=== PATIENT | male | born 1960 | race Caucasian/White ===

== ENCOUNTER 2023-09-23 13:15 | Inpatient (IN) | payer OTHER, SELFPAY ==
[2023-09-23] VITALS (56 sets, daily range): BP systolic 91–143; BP diastolic 52–96; BMI 23.8; BMI 22.1
--- NOTE | 2023-09-23 11:31 | ED.GENMED ---
History of Present Illness
General
Chief Complaint: CVA/TIA Symptoms
Source: patient and ambulance crew
Exam Limitations: none
Time Seen by Provider: 09/23/23 11:29
Nursing documentation reviewed up to this point in time: agreed with
History of Present Illness
History of Present Illness:
63-year-old male with a past medical history of esophageal cancer (currently on chemotherapy which was initiated this past and follows with Dr. Mccullough at [facility]), history of bradycardia (follows with Dr. Franki Farrar
for cardiology) who presents to the emergency room via EMS for evaluation of right weakness and facial droop. Patient reportedly has last normal at 10:30 AM according to his . says that just prior to arrival here in the emergency room she
found him sitting on the couch and coherent and noticed that he had a facial droop on his right side and could not move his right arm. She called EMS to bring him to the hospital. Per EMS he had normal vital signs, normal Accu-Chek. They did note
right facial droop and right arm weakness. Prehospital stroke alert was called. Patient is not on any blood thinners. No known history of brain mets.
Review of Systems
Review of Systems
Unable to obtain full review of systems at this time due to: due to acuity
All Other Systems: Not applicable
Phy Exam
Physical Exam
Physical Exam:
General: Awake, alert, oriented x2; anxious but not in distress
Head: Normocephalic, atraumatic
Eyes: Conjunctiva normal, EOMI, visual chilel intact, pupils equal round reactive to light bilaterally
Throat: Airway intact, handling secretions
Neck: Trachea midline, supple without meningismus
Lungs: Clear to auscultation bilaterally, no wheezing, rales, rhonchi
Heart: Regular rate and rhythm, no murmurs, gallops, or rubs; left chest wall port in place
Abd: Soft, non distended, nontender
Neuro: Patient has right facial droop, cranial nerves otherwise intact; no limb ataxia; he has 4/5 strength right upper extremity proximally and distally compared to 5/5 left upper extremity; strength intact 5/5 bilateral lower extremities; he has
mild dysarthria no aphasia
Extremities: No edema in extremities, equal pulses in all extremities
Scores
NIH Stroke Score
Level of Consciousness: 0 - Alert
LOC Questions: 1-Answers one correctly
LOC Commands: 0-Performs both correctly
Best Horizontal Gaze: 0-Normal
Visual Chilel: 0=Normal, no visual loss
Facial Palsy: 1=Minor paralysis
Motor - Right Arm: 1=Drift < 10 seconds
Motor - Left Arm: 0=No drift 10 seconds
Motor - Right Le-No drift 5 seconds
Motor - Left Le-No drift 5 seconds
Limb Ataxia: 0-Absent
Sensation: 0-Normal
Best Language: 0-No aphasia
Dysarthria: 1-Mild slurring
Extinction and Inattention: 0-No abnormality
Total Score:: 4
Heart Failure Risk
Heart Failure Risk Score: Not Applicable
Heart Score for Chest Pain Patients
STEMI patient?: Not applicable
Withdrawal Assessment of Alcohol
Withdrawal Assessment Completed?: Not applicable
Course
Orders/Labs/Results
Orders:
Orders
09/23/23 11:27
EKG [Electrocardiogram (*1)] Urgent
Reason for Study: TIA/Stroke
09/23/23 11:28
EKG- Treatment ONCE
09/23/23 11:29
Electrocardiogram (*1) Stat
Reason for Study: Other
Other Reason for Exam: neuro symptoms
CT Head W/o Cont STROKE ALERT Urgent
Comment:
Reason For Exam: right facial droop, RUE weakness
CT Head/Neck Ang STROKE ALERT Urgent
Comment:
Reason For Exam: right facial droop, RUE weakness
Bedside Glucose- Treatment ONCE
Cardiac Monitoring- Treatment ONCE
EKG- Treatment ONCE
IV Insert/Care/Rem.- Treatment PRN
Vital Signs- Treatment ONCE
Frequency: q30m
Pulse Ox/cont/shift [RESP] Stat
Quantity: 1
09/23/23 11:35
Troponin I Urgent
09/23/23 11:36
Complete Blood Count/With Diff Urgent
Comprehensive Metabolic Panel Urgent
PTT Urgent
Prothrombin Time Urgent
Aspirin 325 mg PO NOW STA
Clopidogrel Bisulfate [Plavix] 300 mg PO NOW STA
09/23/23 11:47
Tenecteplase [Tnkase] 19 mg Syringe [Syringe Non-Pump] 0 ml IV NOW
Provider explained risk/benefits to patient &/or caregiver?: Yes
09/24/23 08:00
Aspirin Chewable [Low Strength Aspirin] 81 mg PO DAILY
Clopidogrel Bisulfate [Plavix] 75 mg PO DAILY
Abnormal Lab Results
09/23/23 09/23/23
11:35 11:36
RBC 3.58 L 10^6/uL
(4.70-6.10)
Hgb 10.5 L g/dL
(13.0-18.0)
Hct 31.5 L %
(39.0-52.0)
RDW 18.0 H %
(11.5-14.5)
Abs Immat Gran (auto) 0.1 H 10^3/uL
(0-0.05)
Absolute Neuts (auto) 7.4 H 10^3/uL
(1.4-6.5)
Absolute Lymphs (auto) 0.3 L 10^3/uL
(1.2-3.4)
Immature Gran % 0.7 H %
(0-0.5)
Neutrophils % 91.5 H %
(42.2-75.2)
Lymphocytes % 3.9 L %
(20.5-51.1)
PT 15.8 H Sec
(11.4-14.6)
Sodium 122 L mmol/L
(135-145)
Chloride 91 L mmol/L
(98-107)
BUN 21 H mg/dl
(9-20)
Glucose 114 H mg/dl
(70-99)
Calcium 7.9 L mg/dl
(8.4-10.2)
Troponin I 0.111 H* ng/ml
Total Protein 6.2 L g/dl
(6.3-8.2)
Albumin 3.3 L g/dl
(3.5-5.0)
09/23/23 11:36
09/23/23 11:36
Vital Signs
Initial and Last Documented VS:
Initial Vital Signs
Pulse Resp BP Pulse Ox
71 16 104/79 98
09/23/23 11:55 09/23/23 11:55 09/23/23 11:55 09/23/23 11:55
Last Documented Vital Signs
Pulse Resp BP Pulse Ox
64 16 111/57 97
09/23/23 12:02 09/23/23 12:02 09/23/23 12:02 09/23/23 12:08
MDM/Problems Addressed
Differential Diagnosis Includes:
CVA/TIA, complex migraine, mass, seizure
MDM/Problems Addressed:
63-year-old male presents for evaluation of right facial droop and right arm weakness that started this morning. He was last seen normal at 10:30 AM by his . Prehospital stroke alert called. Neurology at bedside during initial assessment.
His NIH stroke scale here is 4. Sent for a stat CT head, CTA head and neck. Usual labs sent off. Will check an EKG. Will monitor very closely reassess after the above.
CT head noncontrast is negative for any acute pathology. Case discussed with patient, , neurology who is at bedside and ultimately decision made to proceed with treatment for TNK with concern for acute CVA. Critical care alert initiated to
facilitate ICU admission. Discussed case with hospitalist.
His initial lab work came back he does have some mild anemia 10.5. His CMP was significant for hyponatremia 122 with normal glucose. His troponin is slightly elevated at 0.111�he denies any chest pain. He had a cardiac catheterization 02/04/[address] Carrera showed clean coronary arteries. Will need to continue to trend. Discussed his hyponatremia with nephrology for consultation will add on urine osmolality and urine sodium. Hospitalist updated.
Chronic conditions affecting care:
Esophageal cancer
*Radiology
Radiology exam reviewed: preliminary read by ED provider and radiology read reviewed
*Pulse Oximetry
Patient hypoxic: no
*EKG
Interpreted by ED Provider?: Yes
Heart Rate: 119
Rate: tachycardiac
Rhythm: junctional
[place]: normal axis
Interval: normal interval
QRS Pattern: normal QRS
Ischemia: no ischemia
*Critical Care Note
Total Time (30-74mins, 75-104mins- exclusive of procedures): 32
comment:
Critical care statement: A total of 32 minutes of critical care time was provided for this patient. This includes management of unstable vital signs, evaluation of the patient at bedside, frequent reassessment, discussion with
consultants/hospitalist, and review of pertinent medical records. This time was separate from time utilized to perform any aforementioned documented procedures
Data Reviewed
Review of Other/Old Records Reveals: Labs and Records
Source: patient, records and spouse
Patient Management
Discussion with other providers: Hospitalist (Discussed with hospitalist) and Cso (Discussed with neurology)
Escalation/DeEscalation of care consider admission/obs:
Admission indicated
ED Attending Note
-
Portions of this chart may have been created with voice recognition software.� Occasional wrong word or��sound alike� substitutions may have occurred due to the inherent limitations of voice recognition software.
Discharge Plan
Departure
Patient Disposition: Admit
Date of Disposition: 09/23/23
Time of Disposition: 11:50
Admit to doctor: Carla
Presentation/result/management discussed w/ accepting MD/DO: Hospitalist
Discharge Problem:
Acute cerebrovascular accident (CVA)
Prescriptions:
No Action
oxycodone 30 mg Tablet, Oral Only
30 mg PO Q4HPRN PRN (Reason: breakthrough pain)
Patient Comments:
09/23/2023: last filled 09/22/23, 30 tabs for 10 days from [place]
ondansetron HCl 4 mg tablet
4 mg PO Q6HPRN PRN (Reason: NAUSEA)
prochlorperazine maleate 10 mg tablet
10 mg PO Q6HPRN PRN (Reason: NAUSEA)
fentanyl 25 mcg/hr patch 72 hour
25 mcg transdermal Q3D
Patient Comments:
09/23/2023: last filled 09/21/23, 10 patches for 30 days from [place]
albuterol sulfate 90 mcg/actuation HFA aerosol inhaler
2 puff INHALATION Q4HPRN PRN (Reason: WHEEZING/SOB)
thyroid (pork) [[place] Thyroid] 30 mg tablet
60 mg PO DAILY@07
Xtampza ER 36 mg cap,sprinkl,ER12hr(DONT CRUSH)
36 mg PO Q8H
Patient Comments:
09/23/2023: last filled 09/20/23, 90 tabs for 30 days from [facility]
Vosevi 400-100-100 mg tablet
1 tab PO DAILY
ferrous sulfate 325 mg (65 mg iron) Tablet
325 mg PO DAILY
bismuth subsalicylate [Pepto-Bismol] 262 mg/15 mL Suspension
524 mg PO QID PRN (Reason: stomach issues)
testosterone enanthate 200 mg/mL oil
100 mg IM Q2W
Fluorouracil Pump
1 dose IV Q2W
Patient Comments:
09/23/2023: 5-FU 2600mg/m2* BSA 1.99= 5174mg IV over 24 hrs every 2 weeks
Interventions
Interventions:
*Risk Screen - Suicide Last Done: 09/23/23 11:55
*General Assessment Last Done: 09/23/23 11:55
*Neglect/Abuse Screening Last Done: 09/23/23 11:55
ED- Fall Risk Assessment Last Done: 09/23/23 12:08
*ED COVID-19 Vaccine History Last Done: 09/23/23 12:11
ED- Pulmonary Assessment Last Done: 09/23/23 12:08
ED- Neurological Assessment Last Done: 09/23/23 11:51
ED- Cardiac Assessment Last Done: 09/23/23 12:08
Discharge Date and Time
Print Language: WELSH
--- NOTE | 2023-09-23 11:32 | CON.NEURO ---
Neuro Assessment/Plan
Assessment
IMPRESSIONS/RECOMMENDATIONS:
Abrupt onset of speech change
Most likely due to acute ischemic stroke involving left MCA
Patient was not a candidate for intra-arterial thrombectomy due to absence of clot for retrieval.
Plan
Recommendations:
� administer IV Tenecteplase per protocol urgently while keeping patient's blood pressure to a goal of systolic less than 185 and diastolic less than
110 mmHg
� place the patient in medical ICU
� goal blood pressure over the next 24 hours would be less than 180/105 mmHg
� check MRI of the brain within 22-32 hours of Tenecteplase without contrast for localization of the stroke
� hold all antiplatelets, OAC meds, DOAC meds, heparinoids for next 24 hours
� check lipid panel
� start atorvastatin 40 mg at bedtime when patient is able to take PO
� check an echocardiogram
� goal blood glucose levels for patient would be less than 180 mg/dL
� Speech, PT, OT evaluations needed
� Physiatry consultation warranted
� DVT prophylaxis with sequential compression devices over next 24 hours, �can be started on Lovenox subcutaneous for DVT prophylaxis
beginning 24 hours after Tenecteplase provision.
� medical educational materials will be provided
Total Critical Care Time= 35 minutes.
The neurological system is affected and the action required by me to prevent further deterioration or potential was control over the item listed first in the Impressions and Recommendations section of this note.
I was present and personally examined the patient. I discussed patient care with other professional health care providers.
Also discussed with family.
We will follow.
Consultation
Order
Date of Consultation: 09/23/23
Requesting Provider: ED Physician
Reason for Consult: Stroke Alert
Subjective/Objective
Subjective Data
Date of Service: September 23, 2023
Patient presented to this hospital's emergency department with acute onset right arm and right facial weakness. The patient was also described as having confusion as per his . Patient did not have prior symptoms. Of importance is that the
patient received his first chemotherapy 2 days ago as a treatment for esophageal cancer. Initiated the use of a fentanyl patch last evening
HR was racing immediately prior to presentation. No other associated symptoms. Symptomatology has continued since onset. No known modifying factors.
Objective Data
Patient Allergies
shellfish derived Allergy (Verified 02/04/22 07:44)
Hives
CVA Assessment
Onset of Stroke Symptoms
Onset of symptoms known: Yes
Date of onset of symptoms: 09/23/23
Time of onset of symptoms: 10:30
Time pt last seen normal is known: Yes
Date last time pt seen normal: 09/23/23
Time last time pt seen normal: 10:00
NIH Stroke Score
Level of Consciousness: 0 - Alert
LOC Questions: 0-Answers both correctly
LOC Commands: 0-Performs both correctly
Best Horizontal Gaze: 0-Normal
Visual Chilel: 0=Normal, no visual loss
Facial Palsy: 1=Minor paralysis (on right)
Motor - Right Arm: 1=Drift < 10 seconds
Motor - Left Arm: 0=No drift 10 seconds
Motor - Right Le-Drift < 5 seconds
Motor - Left Le-No drift 5 seconds
Limb Ataxia: 0-Absent
Sensation: 0-Normal
Best Language: 0-No aphasia
Dysarthria: 1-Mild slurring
Extinction and Inattention: 0-No abnormality
Total Score:: 4
Tenecteplase Contraindications
Inclusion and Exclusion criteria reviewed: Yes
Review of Systems
-
History Source: Patient
All other systems: Reviewed and negative
EENT: Negative Swallowing Difficulty
Respiratory: Trouble Breathing
Cardiac: Negative Chest Pain
Abdomen/GI: Negative Incontinence of Stool
Genitourinary: Negative Incontinence
Musculoskeletal: Negative Back Pain or Neck Pain
Neuro: Negative Dizzy or Headache
Physical Exam
-
General: No Apparent Distress and Appears Stated Age
Eyes: OU Absent Papilledema, Round OU, [place] Conjunctivae and No Ptosis
HEENT: Anicteric and Moist Mucous Membranes
Neck: Full Range of Motion
Respiratory: No Dyspnea
Cardiac: No JVD
GI: Non-distended
Skin: Unremarkable
Extremities: No Clubbing, No Cyanosis and No Edema
Psych: Negative Intact Judgement/Insight
Extended Neurological Exam
Mood & Affect: Negative Affect Unremarkable (Mildly irritable)
Attention Span & Concentration: Awake, Alert, Interactive and Mild Difficulty with 2 Step Request
Memory: Reduced (For specifics)
Tremor: Hand Tremor Absent and Head Tremor Absent
Speech: Quality Unremarkable and Mildly Reduced Output
Cranial Nerve II: Left Eye: Pupillary Reactivity Unremarkable, Pupillary Size Unremarkable and Visual Chilel Intact
Cranial Nerve II: Right Eye: Pupillary Reactivity Unremarkable, Pupillary Size Unremarkable and Visual Chilel Intact
Cranial Nerves III, IV, : Extraocular Movement: Extraocular Movement Full in all Directions
Cranial Nerve VIII: Hearing: Unremarkable Hearing to Normal Conversational Volume
Cranial Nerves IX, X: Palate Movement: Palate Elevation Symmetric
Cranial Nerve XII: Tongue Protusion: Midline
Muscle Strength, Overall: Spontaneously Moves (All extremities)
Muscle Bulk & Tone: Bulk Unremarkable and Tone Unremarkable
Deep Tendon Reflexes: Trace Throughout
Touch Sensation: Unremarkable
Coordination: Esreli-wifj-mafldx Testing Unremarkable
Babinski Sign: Absent Bilaterally
Gait & Station: Unable to Assess
Data Reviewed
-
CT-A: Report Reviewed
CT Head: Report Reviewed and Image Reviewed
MRI Head: Ordered
Labs: Report Reviewed
Lipid Profile: Ordered
Reviewed with: Physician, Patient and Family
Old Records: Summarized
Medications
-
Home Medications
�Medication �Instructions �Recorded
hydrocodone bitartrate 120 mg 120 mg PO Q24H 02/04/22
tablet, crush resist,extend.rel.
24hr ([place] ER)
oxycodone 30 mg tablet,oral ONLY 30 mg PO Q6H PRN pain 02/04/22
(not feeding tubes)
thyroid (pork) 15 mg tablet 15 mg PO DAILY 02/04/22
([place] Thyroid)
Past History
Past History
ED Past Medical History: Arrthythmia (atrial tachycardia), Asthma, Cancer (esophageal 09/2023), Hypothyroidism and Other (Hemochromatosis, Sleep apnea, Hep C)
ED Past Surgical History: Other (laparoscopy 09/2023, port placement 09/2023)
Social History
Tobacco: Non-smoker
Alcohol: Former (age 43)
Drug: None
Personal:
Living: with family
Family History
Family History: Other (reviewed and non-contributory)
[2023-09-23 11:54] LABS: ALT (SGPT) 18 U/L (0-50); AST (SGOT) 37 U/L (17-59); Albumin 3.3 g/dl (3.5-5.0); Alkaline Phosphatase 53 U/L (38-126); Blood Urea Nitrogen 21 mg/dl (9-20); Calcium 7.9 mg/dl (8.4-10.2); Carbon Dioxide 29 mmol/L (22-30); Chloride 91 mmol/L (98-107); Estimated Creatinine Clearance 112 ml/min; Glucose 114 mg/dl (70-99); Potassium 3.8 mmol/L (3.5-5.1); Sodium 122 mmol/L (135-145); Total Bilirubin 0.7 mg/dl (0.2-1.3); Total Protein 6.2 g/dl (6.3-8.2); eGFR > 60.00
[2023-09-23 11:55] LABS: % Basophils 0.2 % (0-2); % Eosinophils 0.4 % (0-6); % Immature Granulocytes 0.7 % (0-0.5); % Lymphocytes 3.9 % (20.5-51.1); % Monocytes 3.3 % (1.7-9.3); % Neutrophils 91.5 % (42.2-75.2); Absolute Immature Granulocytes 0.1 10^3/uL (0-0.05); Absolute Lymphocytes 0.3 10^3/uL (1.2-3.4); Absolute Monocytes 0.3 10^3/uL (0.1-0.6); Absolute Neutrophils 7.4 10^3/uL (1.4-6.5); Hematocrit 31.5 % (39.0-52.0); Hemoglobin 10.5 g/dL (13.0-18.0); Mean Corp Hgb Conc. 33.3 g/dL (33.0-37.0); Mean Corpuscular Hgb 29.3 pg (27.0-31.0); Mean Platelet Volume 10.1 fL (7.4-10.4); Nucleated Red Blood Cells % 0 % (-); Platelet Count 171 10^3/uL (130-400); Red Blood Cell Count 3.58 10^6/uL (4.70-6.10); White Blood Cell Count 8.1 10^3/uL (4.8-10.8)
[2023-09-23 12:00] LABS: INR 1.28; PT 15.8 Sec (11.4-14.6)
[2023-09-23 12:01] LABS: APTT 31.8 Sec (23.4-35.0)
[2023-09-23] MEDS: TNKASE 3.79999999999999982 MG IV (12:01)
[2023-09-23 12:12] LABS: Troponin I 0.111 ng/ml
--- NOTE | 2023-09-23 12:46 | HPS.HSE ---
Addendum entered and electronically signed by Xochilt Olivia MD 09/23/23 18:07:
I saw and examined the patient.
The SPEECH LANGUAGE PATHOLOGIST TRAVEL or PA's note was reviewed and I agree with the note.
Comment:
63M Hypothyroidism, Atrial Tachy, [place], Esophageal/gastric Ca recently started on Chemo two days ago, Hep C Chronic Pain opiate Dependent p/w rt facial droop and rt arm weakness occurred acutely in the morning noted by 10:30 AM while patient
was sitting on couch, awake alert and coherent during the event.� Prior change patient was in his usual state of health earlier in the morning.� Denies nausea vomiting diarrhea chest pain shortness of breath VSS CT head CTA Head/neck noted no acute
intracranial abn�s filling defect focal stenosis or aneurysm.� �Patient was evaluated and given TPN as per Neuro.� ED evaluation was also notable for hyponatremia 122 and troponin elevation 0.111
Physical Exam
General: No pallor, cyanosis, or jaundice.
HEENT: Throat clear. PERRLA Normocephalic atraumatic. Right Facial Droop
NECK: Supple. No JVD Carotid Bruits
RESPIRATORY: Lungs clear to auscultation. No crackles wheezes stridor
CVS: S1, S2 Irregular Rhythm
ABDOMEN: Soft, non-tender. No distension. BS+/normal.
EXTREMITIES: No peripheral or cyanosis, +1 pitting edema lower ext�s
STATISTICAL FINANCIAL ANALYST: AOx3 Right facial droop
#CVA s/p TPN
#Troponin Elevation Arrythmia
#Hyponatremia
#Chronic Pain Opiate Dependent
ICU admit
Neuro [facility] Nephro Cardiology eval
NIH neurochecks
ST/PT/OT eval
Follow up MRI
Goal BP <180/105 24 hrs after thrombolytic therapy
Fluid restriction
Trend troponin to peak ECHO pending
Cont home opiate pain regimen
Total Critical Care Time__40___ minutes. I was immediately available to the patient and staff. I personally examined, reviewed labs, diagnostic images/reports, interpretations, treatment plans, discussed patient care with other providers,
patient, and family, entered orders as appropriate and documented the medical record.
Original Note:
Family Physician
-
Family Physician:
Chief Complaint
-
Right Facial Droop
History of Present Illness
Patient is a 63 y/o male past medical history of hypothyroidism, atrial tachycardia, bradycardia, esophageal/gastric cancer, and hepatitis C who presents with right facial droop and right arm weakness. He awoke this morning in his usual state of
health. Around 10:30 this morning he noted new right facial droop and right sided weakness. notes he could not move his right arm, and the right side of his face was dropping. He denies any prior episodes of stroke. He denies history of high
blood pressure, high cholesterol or diabetes. He did received his first chemotherapy treatment on .
Medical History
Past Medical History
Past Medical History: Reports Other
Additional Past Medical History:
Esophageal/Gastric Cancer
Hepatitis C
Hypothyroidism
Paroxysmal Atrial Tachycardia / Bradycardia
Chronic Pain with Opioid Dependence
Past Surgical History: Reports Other
Additional Past Surgical History:
Right Rotator Cuff
Social History
Tobacco: Former Smoker
Alcohol: Former
Drug: None
Family History
Family History: Not pertinent
Allergies / Home Medications
Allergies reflects when Allergies were last updated in [facility].
Home Medications with original date entered in [facility]
Allergy/Medication List:
Allergies
Allergy/AdvReac Type Severity Reaction Status Date / Time
shellfish derived Allergy Hives Verified 02/04/22 07:44
Home Medications
oxycodone 30 mg tablet,oral ONLY (not feeding tubes) 30 mg PO Q4HPRN PRN breakthrough pain 02/04/22
Fluorouracil Pump 1 dose IV Q2W 09/23/23
albuterol sulfate 90 mcg/actuation aerosol inhaler 2 puff inhalation Q4HPRN PRN WHEEZING/SOB 09/23/23
bismuth subsalicylate 262 mg/15 mL oral suspension (Pepto-Bismol) 524 mg PO QID PRN stomach issues 09/23/23
fentanyl 25 mcg/hr transdermal patch 25 mcg transdermal Q3D Pain 09/23/23
ferrous sulfate 325 mg (65 mg iron) tablet 325 mg PO DAILY 09/23/23
ondansetron HCl 4 mg tablet 4 mg PO Q6HPRN PRN NAUSEA 09/23/23
oxycodone myristate 36 mg capsule sprinkle extended release 12hr(DON'T CRUSH) (Xtampza ER) 36 mg PO Q8H Pain 09/23/23
prochlorperazine maleate 10 mg tablet 10 mg PO Q6HPRN PRN NAUSEA 09/23/23
sofosbuvir 400 mg-velpatasvir 100 mg-voxilaprevir 100 mg tablet (Vosevi) 1 tab PO DAILY HEPATITIS C 09/23/23
testosterone enanthate 200 mg/mL intramuscular oil 100 mg IM Q2W 09/23/23
thyroid (pork) 30 mg tablet ([place] Thyroid) 60 mg PO DAILY@07 Thyroid 09/23/23
Review of Systems
-
A 12 point ROS was completed and negative except as noted: Yes
Constitutional: Denies Fever or Chills
Respiratory: Denies Cough or Trouble Breathing
Cardiac: Reports Palpitations (Patient report sensation of raising heart prior to onset of neurologic symptoms); Denies Chest Pain
Physical Exam
Vital Signs
Vital Signs
Pulse Resp BP Pulse Ox
74 18 112/82 97
09/23/23 12:32 09/23/23 12:32 09/23/23 12:32 09/23/23 12:15
Physical Exam
General: Comfortable and Conversant
HEENT: Moist mucous membranes and Atraumatic
Respiratory: Clear and Non Labored Respirations
Cardiac: S1/S2 and Irregular Rhythm (Periods bradycardia and tachycardia)
GI: Soft, Non Tender and Non Distended
Musculoskeletal: No Clubbing, No Cyanosis and Other (+2 pitting edema LLE; +1 pitting edema RLE)
Skin: Warm and Dry
Neuro: Awake, Alert and Facial Droop (Right)
Psych: Calm
Laboratory Results
-
09/23/23 11:36
09/23/23 11:36
Laboratory Results
PT 15.8 Sec (11.4-14.6) H 09/23/23 11:36
INR 1.28 09/23/23 11:36
APTT 31.8 Sec (23.4-35.0) 09/23/23 11:36
Total Bilirubin 0.7 mg/dl (0.2-1.3) 09/23/23 11:36
AST 37 U/L (17-59) 09/23/23 11:36
ALT 18 U/L (0-50) 09/23/23 11:36
Alkaline Phosphatase 53 U/L (38-126) 09/23/23 11:36
Troponin I 0.111 ng/ml H* 09/23/23 11:35
Data Reviewed
-
CT Scan: Report Reviewed by me
Lab Data: Labs Reviewed by me
Impression/Plan
-
Abrupt Onset of Right Facial Droop and Right Arm Weakness concern for Acute Stroke
-Patient received tenecteplase in ED therefore patient will require close monitoring in the ICU
-Monitor Neuro-checks
-Hold antiplatelets for 24 hours post TNK
-Check Brain MRI 24H post TNK
Elevated Troponin
-Consult Cardiology
-Continue to trend troponin
Hyponatremia
-Consult Nephrology
-Continue fluid restriction
-Check urine sodium, urine osmo, and BNP
Esophageal/Gastric Cancer
-Received first chemotherapy on September 20
-Monitor CBC closely
Paroxysmal Atrial Tachycardia / Bradycardia
-Per outpatient records patient declined pacemaker in the past
Hepatitis C
-Continue Vosevi
Hypothyroidism
-Continue thyroid replacement
-Check TSH
Chronic Pain with Opioid Dependence
-Continue Fentanyl patch, Xtampza ER and oxycodone prn
DVT proph: SCDs
Code Status: Full Code
[2023-09-23 13:51] LABS: TSH Reflex To Free T4 2.95 uIU/ml (0.47-4.68)
[2023-09-23 15:07] LABS: NT-proBNP 711 pg/ml
--- NOTE | 2023-09-23 15:56 | CON.INTV ---
Consultation
Consultation Request
Date/Time Consultation Requested: 09/23/2023
Date/Time Consultation Performed: 09/23/2023
Requesting Provider: Pat WEBBER
Performing Provider: Dr. Davis Caba
Reason for Consultation: Acute CVA status post thrombolytics
Medical History
-
History of Present Illness:
63-year-old male with past medical history significant for hypothyroidism, atrial tachycardia, bradycardia, esophageal/gastric cancer, hepatitis C who presents with right facial droop and right arm weakness. Symptoms woke him up this morning from
his usual state of health. Symptoms were noted around 10:30 AM. Patient did receive chemotherapy on for his cancer.
Patient was evaluated by neurology and he was deemed candidate for thrombolysis, received tenecteplase and was transferred to the critical care unit per protocol.
Denies any nausea, vomiting or blurry vision.
Denies any abdominal pain or back pain.
Past Medical History
Past Medical History: Other (See assessment and plan section)
Social History
Tobacco: Former Smoker
Alcohol: Former
Drug: None
Family History
Family History: Reviewed & Not Pertinent
Allergies / Home Medications
Allergies
Allergy/AdvReac Type Severity Reaction Status Date / Time
shellfish derived Allergy Hives Verified 02/04/22 07:44
Home Medications
�Medication �Instructions �Recorded �Confirmed �Last Taken �Type
oxycodone 30 mg tablet,oral ONLY 30 mg PO Q4HPRN PRN breakthrough 02/04/22 09/23/23 02/04/22 06:00 History
(not feeding tubes) pain
Fluorouracil Pump 1 dose IV Q2W Autoimmune Disorder 09/23/23 09/23/23 Unknown History
albuterol sulfate 90 mcg/actuation 2 puff inhalation Q4HPRN PRN 09/23/23 09/23/23 Unknown History
aerosol inhaler WHEEZING/SOB
bismuth subsalicylate 262 mg/15 mL 524 mg PO QID PRN stomach issues 09/23/23 09/23/23 Unknown History
oral suspension (Pepto-Bismol)
fentanyl 25 mcg/hr transdermal 25 mcg transdermal Q3D Pain 09/23/23 09/23/23 09/22/23 18:00 History
patch
ferrous sulfate 325 mg (65 mg 325 mg PO DAILY Supplement 09/23/23 09/23/23 Unknown History
iron) tablet
ondansetron HCl 4 mg tablet 4 mg PO Q6HPRN PRN NAUSEA 09/23/23 09/23/23 Unknown History
oxycodone myristate 36 mg capsule 36 mg PO Q8H Pain 09/23/23 09/23/23 Unknown History
sprinkle extended release
12hr(DON'T CRUSH) (Xtampza ER)
prochlorperazine maleate 10 mg 10 mg PO Q6HPRN PRN NAUSEA 09/23/23 09/23/23 Unknown History
tablet
sofosbuvir 400 mg-velpatasvir 100 1 tab PO DAILY HEPATITIS C 09/23/23 09/23/23 Unknown History
mg-voxilaprevir 100 mg tablet
(Vosevi)
testosterone enanthate 200 mg/mL 100 mg IM Q2W Hormonal Agent 09/23/23 09/23/23 Unknown History
intramuscular oil
thyroid (pork) 30 mg tablet 60 mg PO DAILY@07 Thyroid 09/23/23 09/23/23 Unknown History
([place] Thyroid)
Review of Systems
-
History Source: Patient
All other systems: Negative unless noted
Vitals / Labs / Diagnostic Testing
Vital Signs
Pulse Resp BP Pulse Ox
56 16 97/70 97
09/23/23 13:32 09/23/23 13:32 09/23/23 13:17 09/23/23 12:15
Lab Data
09/23/23 11:36
09/23/23 11:36
Laboratory Results
09/23/23
11:36
PT 15.8 H
INR 1.28
APTT 31.8
Diagnostic Testing:
Physical Exam
-
HEENT: Normocephalic
Cardiovascular: S1/S2
Respiratory: Clear and Non-Labored Respirations
GI: Non Distended
Neurology: Awake, Alert, AO x 3, Other (Speech is clear. Somewhat forgetful.) and Other (No motor deficit. Improved.)
Skin: Warm
General: Comfortable
Assessment
-
Abrupt onset of right facial droop and right arm weakness concern for acute ischemic CVA left MCA territory
CT angiogram of the neck:[place] is patent. No filling defect, focal stenosis or aneurysm.
Less than 50% stenosis of the ICA bilaterally.
Patent vertebral arteries.
Mild to moderate degenerative disk and joint disease in the cervical spine.
Severe chronic lung disease in the lung apices. Possible pulmonary nodules.
CT head negative, reviewed
-
Status post tenecteplase 09/23/2023
Acute on chronic hyponatremia
Mildly positive troponin
Conditions present prior admission:
Esophageal/gastric cancer first chemotherapy September 21, 2023
Paroxysmal atrial fibrillation/bradycardia-patient declined pacemaker in the past
Hepatitis C
Hypothyroidism
Chronic pain on opiates
Assessment and plan:
Continue with frequent neurological checks
Monitor for bleeding
ICU monitoring for 24 hours
Blood pressure control-treat only if blood pressure above 180/105
Eventual MRI
Holding antiplatelet for the next 24 hours
Statins
Eventual echocardiogram
Eventual speech evaluation and physical therapy evaluation
Mildly positive troponin-denies chest pain
EKG with accelerated junctional rhythm with retrograde conduction. No ST-T wave abnormalities.
Patient does have a cardiac catheterization from 01/2022 that showed normal coronaries. Report reviewed
Cardiology has been consulted
Echocardiogram pending
-
Sinus tachycardia: Asymptomatic
Hemodynamically stable
Patient states that he usually is bradycardic.
-
Abnormal CT chest: Biapical scarring. Can be addressed in the outpatient setting. If patient agreeable.
-
DVT prophylaxis with SCDs
-
Will follow
--- NOTE | 2023-09-23 16:12 | PTOTSP ---
ST Screening
Pt admitted for acute onset of RUE weakness and facial droop. Pt with suspected CVA s/p TNK administration. Pt also with known hx of recent dx of esophageal carcinoma (started chemo the day prior to admission). Given the information listed above, pt
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 Please place consult. Thank you!
--- NOTE | 2023-09-23 16:42 | W.PN.UPDATE ---
Update Note
Progress Note Update
billing purposes
[2023-09-23] MEDS: SODIUM CHLORIDE 3% 250 IV (16:45)
[2023-09-23 17:30] LABS: Osmolality Urine 443 mOsm/kg (300-900)
[2023-09-23 17:44] LABS: Urine Sodium 25 mmol/L (30-90)
--- NOTE | 2023-09-23 18:35 | PTCARENOTE ---
Pt retrieved from ED via stretcher. Transferred over to unit bed by nursing. Pt confused. Unable to answer questions. Unable to provide home address. Oriented to self and hospital. Disoriented to current year. Pt unable to state age or month of
birthday. NIHSS 3 for LOC question, mild (R) sided facial palsy, and mild dysarthria. No arm or leg deficit observed in NIHSS assessment. Pt with chronic pain. Reporting 3/10 back pain. Pre-hospital Fentanyl patch found on (R) torso. Pt's
states it was placed last night. HR observed 50s - 120s on desk monitor. Irregular. +2 pitting LLE and +1 pitting RLE edema. Pedal pulses palpable. SaO2 96% on room air. Coarse crackles B/L bases. Diagnosed sleep apnea; pt does not use CPAP. Pt
with esophageal and gastric cancer. States he is eating no carbohydrates and eats scrambled eggs as it is easier to eat with gastric tumor. States irregular bowel movements and uses stool softener. Voided 400ml yellow urine, sample sent per order.
(L) chest wall sub q port placed Monday. 3% Sodium Chloride infusing @ 20ml/hr. Pt and state 1st dose of chemo was over 24 hours, hung from to Monday.
[2023-09-23 19:20] LABS: Sodium 122 mmol/L (135-145)
--- NOTE | 2023-09-23 20:00 | PTCARENOTE ---
Received pt sitting up in chair. Spouse at bedside. AAOx3 - confused/forgetful at times. NIH = 2 for slight R facial droop and mildly slurred speech. HR in the 120s-130s. + 2 LLE + 1 RLE edema. Lungs clear - decreased on RA. + BS 3 Lap sites noted
- CDI approximated w/ surgical glue. Some bleeding noted at R arm IV site - unchanged from previous shift. LCW SQ port in place - not accessed. SCDs on. 3% NS infusing. Pre-hospital fentanyl patch to R abd. Awaiting pharmacy verification to change.
Pt performed own mouth care.
[2023-09-23 20:08] LABS: HDL Cholesterol 62 mg/dl; LDL Cholesterol, Calculated 74 mg/dl; Total Cholesterol 151 mg/dl (50-199); Triglyceride 75 mg/dl (10-149); Very Low Density Lipoprotein 15 mg/dl (0-30)
[2023-09-23] MEDS: OXYCONTIN (CONTROLLED RELEASE) PO (22:05)
[2023-09-23] MEDS: DURAGESIC 25 MCG/HR PATCH 1 PATCH TRANSDERM (22:12)
[2023-09-23] MEDS: LIPITOR 40 MG PO (22:28)
[2023-09-23 22:44] LABS: Sodium 121 mmol/L (135-145)
[2023-09-24] VITALS (26 sets, daily range): BP systolic 94–137; BP diastolic 56–99; BMI 22.1
--- NOTE | 2023-09-24 00:27 | PTCARENOTE ---
Pt's BPs remain soft. Pt w/ sleep apnea - pox drops to the low 80s briefly. Remains confused/forgetful at times.
[2023-09-24 01:12] LABS: Sodium 124 mmol/L (135-145)
[2023-09-24 01:29] LABS: Troponin I 0.215 ng/ml
[2023-09-24] MEDS: ROXICODONE 30 MG PO ×3 (04:10→17:56)
[2023-09-24 04:27] LABS: Hematocrit 28.6 % (39.0-52.0); Hemoglobin 9.8 g/dL (13.0-18.0); Mean Corp Hgb Conc. 34.3 g/dL (33.0-37.0); Mean Corpuscular Hgb 29.3 pg (27.0-31.0); Mean Corpuscular Volume 85.6 fL (80.0-94.0); Platelet Count 166 10^3/uL (130-400); Red Blood Cell Count 3.34 10^6/uL (4.70-6.10); Red Cell Dist. Width 17.9 % (11.5-14.5); White Blood Cell Count 6.6 10^3/uL (4.8-10.8)
[2023-09-24 04:39] LABS: APTT 30.9 Sec (23.4-35.0)
[2023-09-24 06:03] LABS: Blood Urea Nitrogen 22 mg/dl (9-20); Carbon Dioxide 25 mmol/L (22-30); Estimated Creatinine Clearance > 125 ml/min; Glucose 97 mg/dl (70-99); Total Cholesterol 143 mg/dl (50-199); eGFR > 60.00
[2023-09-24 06:14] LABS: Chloride 92 mmol/L (98-107); HDL Cholesterol 54 mg/dl; LDL Cholesterol, Calculated 71 mg/dl; Sodium 124 mmol/L (135-145); Triglyceride 92 mg/dl (10-149); Very Low Density Lipoprotein 18 mg/dl (0-30)
[2023-09-24] MEDS: ARMOUR THYROID 60 MG PO (06:22)
--- NOTE | 2023-09-24 06:36 | W.PN.HOSP.TC ---
Today's Communication/Plan
-
Neuro checks, NIH
MRI
Hyponatremia treatment as per Nephro
ST/PT/OT
Pending ECHO, VSE tomorrow
Assessment / Plan
Assessment / Plan
Physical Exam
General: No pallor, cyanosis, or jaundice.
HEENT: Throat clear. PERRLA Normocephalic atraumatic, face symmetric no facial droop noted.
NECK: Supple. No JVD Carotid Bruits
RESPIRATORY: Lungs clear to auscultation. No crackles wheezes stridor
CVS: S1, S2 Irregular Rhythm
ABDOMEN: Soft, non-tender. No distension. BS+/normal.
EXTREMITIES: No peripheral or cyanosis, +1 pitting edema lower ext�s
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
63M Hypothyroidism, Atrial Tachy, [place], Esophageal/gastric Ca recently started on Chemo two days ago, Hep C Chronic Pain opiate Dependent p/w rt facial droop and rt arm weakness occurred acutely in the morning noted by 10:30 AM while patient
was sitting on couch, awake alert and coherent during the event.� Prior change patient was in his usual state of health earlier in the morning.� Denies nausea vomiting diarrhea chest pain shortness of breath VSS CT head CTA Head/neck noted no acute
intracranial abn�s filling defect focal stenosis or aneurysm.� �Patient was evaluated and given TPN as per Neuro.� ED evaluation was also notable for hyponatremia 122 and troponin elevation 0.111
Acute CVA
-received TNK 09/22 w/ subsequent resolution of symptoms
-Monitor Neuro-checks
-Hold antiplatelets for 24 hours post TNK
-Neuro eval appreciated cont statin, 21 days dual antiplatelet ASA plavix to start tomorrow 09/24
-MRI 24 hrs post TNK appreciated multiple small acute ischemic infarcts throughout brain, 1.2 cm acute infarct left thalamus, consistent with Acute Embolic Disease
-Cardio consult appreciated consideration oral anticoagulation complicated by hx of GI bleed
-Plc Programmer eval appreciated
-Pending ECHO
-speech eval appreciated soft bite size solids w/ thin liquids, pending VSE
-PT/OT eval pending
Abnormal CT chest/CXR: Biapical scarring. Can be addressed in the outpatient setting as per pulm/java project manager. If patient agreeable.
Former smoker
Elevated Troponin
likely non-ischemic related 2/2 stroke
trended to peak 0.440 since trended down, chest pain free
Cardiology Consult Appreciated
Hyponatremia
Nephro Consult appreciated
-Continue fluid restriction
-3% NS, lasix prn as per nephro
-avoid overcorrection
Esophageal/Gastric Cancer
Anemia
-Received first chemotherapy on September 20
-H&H stable
Paroxysmal Atrial Tachycardia / Bradycardia
-declined pacemaker in the past
-consideration low dose BB as per cardio
Hepatitis C
-Continue Vosevi
Hypothyroidism
-Continue thyroid replacement
-TSH wnl
Chronic Pain with Opioid Dependence
-Continue Fentanyl patch, Xtampza ER and oxycodone prn
DVT proph: SCDs
Code Status: Full Code
Total Critical Care Time__40___ minutes. I was immediately available to the patient and staff. I personally examined, reviewed labs, diagnostic images/reports, interpretations, treatment plans, discussed patient care with other providers and
family or caregivers (if patient is unable to make decisions), entered orders as appropriate and documented the medical record.
Anticipated Discharge: 24 - 48 hours
Subjective/Interval History
-
Date of Service: September 24, 2023
Seen and examined at bedside in no acute distress sitting up comfortably in bed. Stroke symptoms appear completely resolved. No facial droop. RUE strength 5/5
Objective Data
-
Labs:
Laboratory Results
09/23/23 09/23/23 09/24/23
18:16 22:28 00:55
WBC
Hgb
Hct
Plt Count
APTT
Sodium 122 L 121 L 124 L
Potassium
Chloride
Carbon Dioxide
BUN
Creatinine
Glucose
Calcium
09/24/23 09/24/23 09/24/23
04:18 04:18 08:00
WBC 6.6
Hgb 9.8 L
Hct 28.6 L
Plt Count 166
APTT 30.9
Sodium 124 L Cancelled Pending
Potassium 4.0
Chloride 92 L
Carbon Dioxide 25
BUN 22 H
Creatinine 0.6 L
Glucose 97
Calcium 8.0 L
Vital Signs:
Vital Signs
Temp Pulse Resp BP Pulse Ox
98.0 F 68 14 99/65 99
09/24/23 03:39 09/24/23 06:30 09/24/23 06:30 09/24/23 06:01 09/24/23 06:30
I&O
09/22/23 09/23/23 09/24/23
06:59 06:59 06:59
Intake Total 200 / 200
Output Total 500 / 500
Balance -300 / -300
[2023-09-24] MEDS: SODIUM CHLORIDE 3% 250 IV ×2 (07:50→19:14)
[2023-09-24] MEDS: FEOSOL 325 MG PO (07:52)
[2023-09-24] MEDS: OXYCONTIN (CONTROLLED RELEASE) 40 MG PO ×2 (07:52→21:56)
--- NOTE | 2023-09-24 09:05 | W.PN.NEURO.1 ---
Addendum entered and electronically signed by Antonio Hernandez MD 09/24/23 16:21:
MRI of brain report: 'There are multiple small acute ischemic infarcts diffusely distributed throughout the brain suggesting acute embolic disease. The largest infarct is located in the medial aspect of the left thalamus measuring 1.2 x 1.0 cm in
size. There is a 4 mm subcortical white matter infarct in the left frontal lobe centrum semiovale bilaterally, a 3 mm acute ischemic infarct in the posterior left parietal lobe, a 3.9 mm acute ischemic infarct in the lateral left temporal lobe,
multiple small linear shaped acute ischemic infarcts in the medial right temporal lobe, a 2.3 mm acute ischemic infarct in the head of the right caudate nucleus, and a 3 mm acute ischemic infarct in the posterior right parietal lobe. These infarcts
demonstrate restricted diffusion and containing mild low T1 and high T2/FLAIR signal intensity cytotoxic edema.'
Original Note:
Today's Communication / Plan
-
check MRI of the brain within 22-32 hours of Tenecteplase without contrast for localization of the stroke
would start ASA 81 mg daily, start clopidogrel 75 mg daily for 21 doses, then discontinue
start atorvastatin 40 mg at bedtime when patient is able to take PO
Neuro Assessment/Plan
Assessment
IMPRESSIONS/RECOMMENDATIONS:
Abrupt onset of speech change
Most likely due to acute ischemic stroke involving left MCA; DDX includes TIA, abnormal response to hyponatremia
Patient received Tenecteplase
Plan
Recommendations:
check MRI of the brain within 22-32 hours of Tenecteplase without contrast for localization of the stroke
would start ASA 81 mg daily, start clopidogrel 75 mg daily for 21 doses, then discontinue
start atorvastatin 40 mg at bedtime when patient is able to take PO
check an echocardiogram
goal blood glucose levels for patient would be less than 180 mg/dL
DVT prophylaxis
medical educational materials will be provided
We will follow.
Subjective/Objective
Subjective Data
Date of Service: September 24, 2023
Reports pain in body.
No weakness. No confusion.
Objective Data
Vital Signs
Temp Pulse Resp BP Pulse Ox
36.8 C 66 13 108/76 99
09/24/23 07:27 09/24/23 08:30 09/24/23 08:30 09/24/23 08:00 09/24/23 08:00
Lab Results
09/24/23 04:18
PT 15.8 Sec (11.4-14.6) H 09/23/23 11:36
INR 1.28 09/23/23 11:36
APTT 30.9 Sec (23.4-35.0) 09/24/23 04:18
Sodium 124 mmol/L (135-145) L 09/24/23 04:18
Sodium Cancelled 09/24/23 04:18
Potassium 4.0 mmol/L (3.5-5.1) 09/24/23 04:18
BUN 22 mg/dl (9-20) H 09/24/23 04:18
Glucose 97 mg/dl (70-99) 09/24/23 04:18
Calcium 8.0 mg/dl (8.4-10.2) L 09/24/23 04:18
Rvz-G-Rptrvagetgh Pept 711 pg/ml 09/23/23 11:35
LDL Cholesterol, Calc 71 mg/dl 09/24/23 04:18
Patient Allergies
shellfish derived Allergy (Verified 02/04/22 07:44)
Hives
Review of Systems
-
History Source: Patient
All other systems: Reviewed and negative
EENT: Swallowing Difficulty
Respiratory: Trouble Breathing
Cardiac: Negative Chest Pain
Abdomen/GI: Abdominal Pain; Negative Incontinence of Stool
Genitourinary: Negative Incontinence
Musculoskeletal: Back Pain and Neck Pain
Neuro: Negative Dizzy or Headache
Physical Exam
-
General: No Apparent Distress and Appears Stated Age
Eyes: Round OU, [place] Conjunctivae and No Ptosis
HEENT: Anicteric and Moist Mucous Membranes
Neck: Full Range of Motion
Respiratory: No Dyspnea
Cardiac: No JVD
GI: Non-distended
Skin: Unremarkable
Extremities: No Clubbing, No Cyanosis and No Edema
Psych: Negative Intact Judgement/Insight
Extended Neurological Exam
Mood & Affect: Negative Affect Unremarkable (Mildly irritable)
Attention Span & Concentration: Awake, Alert and Interactive
Memory: Unremarkable
Tremor: Hand Tremor Absent and Head Tremor Absent
Speech: Quality Unremarkable and Quantity Unremarkable
Cranial Nerve II: Left Eye: Pupillary Size Unremarkable and Visual [place] Grossly Intact
Cranial Nerve II: Right Eye: Pupillary Size Unremarkable and Visual [place] Grossly Intact
Cranial Nerves III, IV, : Extraocular Movement: Grossly Intact
Cranial Nerve VII: Facial Symmetry: Normal Facial Symmetry
Cranial Nerve VIII: Hearing: Unremarkable Hearing to Normal Conversational Volume
Cranial Nerve XI: Shoulder Shrug: Unremarkable
Muscle Strength, Overall: Full Throughout
Muscle Bulk & Tone: Bulk Unremarkable and Tone Unremarkable
Pronator Drift: No Drift in Upper Extremities
Touch Sensation: Unremarkable
Coordination: [place]-vvgc-wggnmv Testing Unremarkable
Gait & Station: Up from Seated Without Problem
Data Reviewed
-
CT-A: Report Reviewed
CT Head: Report Reviewed
MRI Head: Pending
Labs: Report Reviewed
Lipid Profile: Report Reviewed
Reviewed with: Physician and Patient
Old Records: Summarized
Past History
Past History
ED Past Medical History: Arrthythmia (atrial tachycardia), Asthma, Cancer (esophageal 09/2023), Hypothyroidism and Other (Hemochromatosis, Sleep apnea, Hep C)
ED Past Surgical History: Other (laparoscopy 09/2023, port placement 09/2023)
Social History
Tobacco: Non-smoker
Alcohol: Former (age 43)
Drug: None
Personal:
Living: with family
Family History
Family History: Other (reviewed and non-contributory)
Medications
-
Medications:
Generic Name Dose Route Start Last Admin
Trade Name Freq PRN Reason Stop Dose Admin
Acetaminophen 650 mg 09/23/23 12:31
Acetaminophen 325 Mg Tablet PO 10/21/23 12:30
Q4HPRN PRN
CARR, mild pain, or temp >100.4F
Albuterol 2 puff 09/23/23 16:12
Albuterol Hfa [90 Mcg/Dose] Inhaler INH
R Q4HPRN PRN
WHEEZING/SOB
Protocol
Atorvastatin Calcium 40 mg 09/23/23 18:00 09/23/23 22:28
Atorvastatin (Lipitor) 40 Mg Tablet PO 10/21/23 17:59 40 mg
QPM [place] Administration
Fentanyl 1 patch 09/23/23 21:00 09/23/23 22:12
Fentanyl 25 Mcg/Hr Patch TRANSDERM 10/07/23 20:59 1 patch
Q3D [place] Administration
Ferrous Sulfate 325 mg 09/24/23 08:00 09/24/23 07:52
Ferrous Sulfate 325 Mg Tablet PO 10/22/23 07:59 325 mg
DAILY [place] Administration
Sodium Chloride 250 mls @ 30 mls/hr 09/24/23 06:16 09/24/23 07:50
Sodium Chloride 3% IV 09/24/23 14:35 250 mls
ONCE ONE Administration
Non-Formulary Medication 1 tablet 09/24/23 08:00
Zjqgnhkcwo-Fhoujakj-Tddiguyena [Vosevi] PO 10/22/23 07:59
DAILY [place]
Ondansetron HCl 4 mg 09/23/23 16:12
Ondansetron 4 Mg Tablet PO 10/21/23 16:11
Q6HPRN PRN
NAUSEA
Oxycodone HCl 30 mg 09/23/23 20:09 09/24/23 04:10
Oxycodone 15 Mg Regular Release Tablet PO 10/07/23 20:08 30 mg
Q4HPRN PRN Administration
breakthrough pain
Oxycodone HCl 40 mg 09/23/23 22:00 09/24/23 07:52
Oxycontin 40 Mg Controlled Release Tablet PO 10/07/23 21:59 40 mg
TID [place] Administration
Patch Removal 0 patch 09/23/23 21:00 09/23/23 22:12
Remove Fentanyl Patch REMOVE 10/07/23 20:59 1 patch
Q72H [place] Administration
Prochlorperazine Maleate 10 mg 09/23/23 16:12
Prochlorperazine 10 Mg Tablet PO 10/21/23 16:11
Q6HPRN PRN
NAUSEA
Sodium Chloride 0 flush 09/23/23 16:00
Sodium Chloride 0.9% (Flush) Syringe IV 10/21/23 15:59
PER PROTOCOL [place]
Thyroid 60 mg 09/24/23 07:00 09/24/23 06:22
Thyroid 60 Mg (1 Grain) Tablet PO 10/22/23 06:59 60 mg
DAILY@0700 [place] Administration
[2023-09-24 09:55] LABS: Sodium 123 mmol/L (135-145)
--- NOTE | 2023-09-24 10:05 | PTOTSP ---
ST Acute Care Evaluation
Pt presents with mild to moderate pharyngoesophageal dysphagia characterized by need for over-mastication of solids, throat clearing during mastication and s/p ingestion of solids as well as intermittent belching s/p ingestion of both liquids and
solids. Pt would benefit from a video fluoroscopic swallow study to gather more diagnostic information. Pt's presentation likely 2/2 recently dx esophageal and gastric cancer, which could be exacerbated in the setting of possible CVA.
Recommendations:
- Soft bite sized solids with regular thin liquids, meds as tolerated.
- General aspiration and reflux precautions: HOB fully upright for all PO intake and for at least 60 minutes following PO intake; over-masticate solids; alternate liquids and solids; eat/drink slowly.
- Pt would benefit from an BAR TENDER cognitive linguistic evaluation.
- Pt would benefit from a videofluoroscopic swallow study to gather more diagnostic information regarding airway protection.
- BAR TENDER to continue to follow.
--- NOTE | 2023-09-24 10:27 | CON.CAR ---
Consultation
Consultation Request
Date/Time Consultation Requested: September 24, 2023
Date/Time Consultation Performed: September 24, 2023
Requesting Provider: Hospitalist
Performing Provider: Dr. Kaushik Farrar
Reason for Consultation: Atrial tachycardia and CVA
Medical History
-
Chief Complaint: Abrupt onset of speech change, CVA acute
History of Present Illness:
Patient presents with abrupt onset of speech change.
He has a history of esophageal cancer who presented to the emergency room at [place] via emergency services for evaluation of right facial weakness, facial droop and difficulty with speech. He was evaluated by neurology and felt to have acute
stroke. He was treated with tenecteplase.
Cardiology is consulted because of tachycardia and elevated troponin in the setting of acute CVA.
Patient tells me that at no recent time has he had any chest pain different than the chronic chest pain he has been experiencing from his gastric and esophageal cancer.
EKG on admission finds an accelerated junctional rhythm at 119 bpm. Subsequent EKG finds sinus bradycardia with junctional escape's
Troponin peak value this admission is 0.440 declining to 0.215
CXR with moderate symmetric biapical lung scarring and pleural thickening which could be secondary to chronic infection or inflammatory inhalational disease and left subclavian chemotherapy Mediport in place.
Head CT with no acute intracranial process
CTA of the head and neck finds the [place] is patent, no filling defect, focal stenosis or aneurysm, < 50% stenosis of the ICA bilaterally and patent vertebral arteries.
Past medical history:
-History of paroxysmal atrial tachycardia, PACs and borderline chronotropic incompetence with tachycardia-bradycardia
Symptoms have been difficult to truly attribute to chronotropic incompetence with permanent pacemaker has been recommended as an option, patient has refused.
Have been unable to use beta-trisha and calcium channel trisha to suppress his PAT and PACs over concern for tachycardia-bradycardia syndrome
Neither atrial fibrillation nor atrial flutter have ever been observed
-Coronary angiography February 04, 2022 finds normal coronary arteries
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
currently receiving chemotherapy which was initiated this past , follows with Dr. Mccullough at the [facility]
-GIB and anemia related to his esophageal and gastric cancer
-Hepatitis C
-Hypothyroidism
-Hyponatremia
-Chronic pain, opioid dependent
Social History
Tobacco: Former Smoker
Alcohol: Former
Drug: None
Family History
Family History: Reviewed & Not Pertinent
Allergies / Home Medications
Allergy/AdvReac Type Severity Reaction Status Date / Time
shellfish derived Allergy Hives Verified 02/04/22 07:44
�Medication �Instructions �Recorded �Confirmed �Type
oxycodone 30 mg tablet,oral ONLY 30 mg PO Q4HPRN PRN breakthrough 02/04/22 09/23/23 History
(not feeding tubes) pain
Fluorouracil Pump 1 dose IV Q2W Autoimmune Disorder 09/23/23 09/23/23 History
albuterol sulfate 90 mcg/actuation 2 puff inhalation Q4HPRN PRN 09/23/23 09/23/23 History
aerosol inhaler WHEEZING/SOB
bismuth subsalicylate 262 mg/15 mL 524 mg PO QID PRN stomach issues 09/23/23 09/23/23 History
oral suspension (Pepto-Bismol)
fentanyl 25 mcg/hr transdermal 25 mcg transdermal Q3D Pain 09/23/23 09/23/23 History
patch
ferrous sulfate 325 mg (65 mg 325 mg PO DAILY Supplement 09/23/23 09/23/23 History
iron) tablet
ondansetron HCl 4 mg tablet 4 mg PO Q6HPRN PRN NAUSEA 09/23/23 09/23/23 History
oxycodone myristate 36 mg capsule 36 mg PO Q8H Pain 09/23/23 09/23/23 History
sprinkle extended release
12hr(DON'T CRUSH) (Xtampza ER)
prochlorperazine maleate 10 mg 10 mg PO Q6HPRN PRN NAUSEA 09/23/23 09/23/23 History
tablet
sofosbuvir 400 mg-velpatasvir 100 1 tab PO DAILY HEPATITIS C 09/23/23 09/23/23 History
mg-voxilaprevir 100 mg tablet
(Vosevi)
testosterone enanthate 200 mg/mL 100 mg IM Q2W Hormonal Agent 09/23/23 09/23/23 History
intramuscular oil
thyroid (pork) 30 mg tablet 60 mg PO DAILY@07 Thyroid 09/23/23 09/23/23 History
([place] Thyroid)
Review of Systems
-
History Source: Patient
All other systems: Negative unless noted
Constitutional: Weight Loss and Fatigue
EENT: No Symptoms
Respiratory: No Symptoms
Cardiac: Palpitations
Abdomen/GI: Abdominal Pain
: No Symptoms
Musculoskeletal: No Symptoms
Skin: No Symptoms
Neurological: No Symptoms
Endocrine: No Symptoms
Hematologic/Lymphatic: No Symptoms
Physical Exam
Vital Signs
Temp Pulse Resp BP Pulse Ox
98.2 F 80 13 137/97 98
09/24/23 07:27 09/24/23 10:15 09/24/23 10:15 09/24/23 10:00 09/24/23 09:50
Lab Results
09/24/23 04:18
09/24/23 09:29
Troponin I Cancelled 09/24/23 06:30
Nia-K-Vbuqtzdodfa Pept 711 pg/ml 09/23/23 11:35
Physical Exam
General: Well Developed, Well Nourished, No Apparent Distress and Comfortable
HEENT: Normocephalic, Anicteric and Moist Mucous Membranes
Respiratory: Clear and Non Labored Respirations
Cardiac: S1/S2 and Regular Rhythm (Normal S1 and S2, no S3 no S4. Grade 1/6 apical holosystolic murmur no rubs. PMI normally placed)
Breast: Deferred by me
GI: Soft, Non Tender, Non Distended and Normal Bowel Sounds
Rectal: Deferred by Provider
Musculoskeletal: No Clubbing, No Cyanosis and Edema (There is +1 lower extremity bilateral edema)
Skin: Warm and Dry
Neuro: Awake, Alert, Oriented and AO x 3
Psych: Calm
Impression / Plan
-
Impression:
-Acute ischemic stroke involving the left MCA.
He did receive tenecteplase with subsequent marked symptom improvement
He has been started on aspirin as well as clopidogrel with plan for maintaining clopidogrel 75 mg daily for 21 doses then stopping.
-History of paroxysmal atrial tachycardia, PACs and borderline chronotropic incompetence with tachycardia-bradycardia
Symptoms have been difficult to truly attribute to chronotropic incompetence with permanent pacemaker has been recommended as an option, patient has refused.
Have been unable to use beta-trisha and calcium channel trisha to suppress his PAT and PACs over concern for tachycardia-bradycardia syndrome
Neither atrial fibrillation nor atrial flutter have ever been observed
-Coronary angiography February 04, 2022 finds normal coronary arteries
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
currently receiving chemotherapy which was initiated this past , follows with Dr. Mccullough at the [facility]
-GIB and anemia related to his esophageal and gastric cancer
-Hepatitis C
-Hypothyroidism
-Hyponatremia
-Chronic pain, opioid dependent
Recommendations:
-Acute CVA
If it is felt that this is an embolic event, the argument could be made that while we have never seen atrial fibrillation or atrial flutter he has had paroxysmal atrial tachycardia which in some cases could be thromboembolic
Therefore if it is felt that this is an embolic event and no other obvious etiology there should be consideration for oral anticoagulation.
This is complicated given his known GI bleeding and anemia with GI bleed related to his ongoing gastric and esophageal cancer.
Depending on his clinical course and long-term prognosis there could eventually be consideration for Watchman left atrial appendage occlusion if he could tolerate anticoagulation for at least 6 weeks
-Regarding his atrial tachycardia and tachycardia-bradycardia that we have seen on monitoring
He is not highly symptomatic.
My concern with starting any rate slowing agents would be that during periods of bradycardia he would be markedly bradycardic and likely much more symptomatic, then necessitating permanent pacemaker implantation
Recommend continued observational follow-up for now
If he continues to have symptomatic mild bradycardia we could consider very low-dose beta-trisha such as Toprol-XL 12.5 mg daily with the understanding that he may get more bradycardic
-Regarding the elevated troponin, this is likely non-ME troponin elevation in the setting of acute CVA.
Troponin is already decreasing and EKG without clear ischemic changes. Additionally coronary angiography less than 2 years ago found normal coronary arteries
No immediate plans for further cardiac ischemic evaluation at this time.
He is already planned for dual antiplatelet therapy in the setting of CVA, continue.
Avoiding beta-trisha if at all possible as noted above.
-Will check echocardiogram tomorrow.
Discussed with the patient as well as his daughter who is at bedside. All of their questions have been answered.
Data Reviewed
-
EKG: Tracing Personally Visualized and interpreted
Radiology: Report Reviewed by me
CT Scan: Report Reviewed by me
Medical Tests (Nuc Med, Echo etc): Report Reviewed by me
Labs: Labs Reviewed by me
Old Records: Reviewed
Total Time Spent with Patient (in minutes): 80
--- NOTE | 2023-09-24 10:44 | PTCARENOTE ---
Pt received in bed @ 0700. Assisted OOB to chair x1. NIHSS 0. AAOx3 but forgetful. Chronic back pain. Pt frequently changing from bed to chair and back related to back pain. Fentanyl 25mcg/hr transdermal patch in place on left torso. Oxycodone HCl
40mg PO TID with Oxycodone HCl 30mg Q4H PRN provided. SaO2 96% on room air. Lungs diminished at bases. Sinus rhythm with PAC's on electronic device monitor, often Sinus rhythm and Sinus tach as well. HR 50s - 130s. +1 LE edema. Pedal pulses palpable. Pale
skin. 3% Sodium @ 30ml/hr through (L) AC.
--- NOTE | 2023-09-24 11:02 | W.PN.INTV ---
Today's Communication / Plan
Recommendations
MRI later today
Physical therapy compression therapy protocol
Follow BMPs
Fluid restriction-possible SIADH
Hyponatremia workup per nephrology
Continue to monitor for bleeding
If MRI later without bleeding and patient remained stable then transferred to telemetry.
Assessment
-
Abrupt onset of right facial droop and right arm weakness concern for acute ischemic CVA left MCA territory
CT angiogram of the neck:[place] is patent. No filling defect, focal stenosis or aneurysm.
Less than 50% stenosis of the ICA bilaterally.
Patent vertebral arteries.
Mild to moderate degenerative disk and joint disease in the cervical spine.
Severe chronic lung disease in the lung apices. Possible pulmonary nodules.
CT head negative, reviewed
-
Status post tenecteplase 09/23/2023
Acute on chronic hyponatremia
Mildly positive troponin
-
Conditions present prior admission:
Esophageal/gastric cancer first chemotherapy September 21, 2023
Paroxysmal atrial fibrillation/bradycardia-patient declined pacemaker in the past
Hepatitis C
Hypothyroidism
Chronic pain on opiates
Assessment and plan:
Stable overnight, no evidence of bleeding.
Neurological exam improved.
ICU monitoring for 24 hours post thrombolytics per protocol.
Blood pressure control-treat only if blood pressure above 180/105-currently stable
Eventual MRI later today
Start antiplatelets later today
Statins
Eventual echocardiogram
Speech evaluation, physical therapy evaluation
-
Mildly positive troponin-denies chest pain, trending lower
EKG with accelerated junctional rhythm with retrograde conduction. No ST-T wave abnormalities.
Patient does have a cardiac catheterization from 01/2022 that showed normal coronaries. Report reviewed
Echocardiogram pending
-
Sinus tachycardia: Resolved
Hemodynamically stable
Patient states that he usually is bradycardic.
He has refused pacemaker in the past
-
Hyponatremia: Possible SIADH from cancer
TSH normal
Cortisol pending
Nephrology following
-
Abnormal CT chest: Biapical scarring. Can be addressed in the outpatient setting. If patient agreeable.
Former smoker
-
Status post chemotherapy September 21, 2023-4 esophageal/gastric cancer
Continue to monitor for infection
Continue to follow CBCs
-
DVT prophylaxis with SCDs
-
If patient remains neurologically stable and MRI shows no evidence for bleeding. Then transferred to telemetry.
If transferred to telemetry critical care team will sign off. Call pulmonary if any respiratory issues arise.
Subjective Dataa
Subjective Data
Date of Service:
Date of Service: September 24, 2023
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
Subjective:
No new complaints overnight
Neurological status has improved
Denies nausea or vomiting
Denies headache
Review of Systems
General: Fever (n)
Cardiopulmonary: Dyspnea (n), Cough (n), Sputum Production (n) and Chest Pain (n)
GI: Abdominal Pain (n), Nausea (n) and Vomiting (n)
Objective Data
Data Reviewed
Vital Signs / I&O / Oxygen:
Vital Signs
Temp Pulse Resp BP Pulse Ox
98.2 F 80 13 137/97 98
09/24/23 07:27 09/24/23 10:15 09/24/23 10:15 09/24/23 10:00 09/24/23 09:50
Intake and Output
09/23/23 09/24/23 09/25/23
06:59 06:59 06:59
Intake Total 200 / 200
Output Total 500 / 500
Balance -300 / -300
SaO2 98
Physical Exam
General: Respiratory Distress (n)
HEENT: Normocephalic
Cardiovascular: S1-S2 and Regular Rhythm
Respiratory: Clear and Non-Labored Respirations
GI: Soft and Non Distended
Neurology: Awake, Alert, Oriented, AO x 3, No Motor Deficits and Tremors (n)
Skin: Warm
Labs/Micro/Reports
Lab Data
09/24/23 04:18
09/24/23 09:29
Laboratory Results
09/23/23 09/24/23
11:36 04:18
PT 15.8 H
INR 1.28
APTT 31.8 30.9
[2023-09-24] MEDS: LASIX 20 MG IV (11:15)
--- NOTE | 2023-09-24 12:21 | W.PN.NEPH.PH ---
Today's Communication / Plan
-
see plan
Assessment/Plan
-
IMP:
Abrupt Onset of Right Facial Droop and Right Arm Weakness concern for Acute Stroke s/p tenecteplase in ED
Elevated Troponin
Acute on chr Hyponatremia
Esophageal/Gastric Cancer -Received first chemotherapy on September 20 at [place]
Paroxysmal Atrial Tachycardia / Bradycardia
Hepatitis C-Vosevi
Hypothyroidism
Chronic Pain with Opioid Dependence
Plan:
A/w CVA symp s/p Tenecteplase-symp resolved now
Acute on chr hyponatremia- U osmo 443, U na low 25 with poor solute intake
suspect high ADH state from malignancy, chr pain
sodium slow to improve, cont 3% saline
will add lasix, encourage solute intake, FR 40 ounces/day while here
goal of correction is 6-8meq/day
TSH is normal, q4h sodium checks
BP are soft, pending cortisol
cards consulted for high [id number]-abzjs-lqtpr, echo pending
mild LE edema -probably multifactorial(low alb, dependant, ?chemo), BNP not high at 711
pt insisting of going home today, reviewed with pt and family at bedside that it is not safe yet, as we still working sodium to be stabilized
reviewed risk of SZ if he leaves
d/w pt, family and nursing
-
-
Date of Service: September 24, 2023
CC / HPI / ROS
-
Chief Complaint:
hyponatremia
History of Present Illness:
sodium better upto 124 but down to 123 this am
BP are soft, no fever
hb low 9.8
Review of Systems:
could not sleep in bed with back pain, sitting in chair currently
weakness and speech improved
no n/v but difficulty to eat solid foods with GI cancer
Labs
-
Labs:
WBC 6.6 10^3/uL (4.8-10.8) 09/24/23 04:18
RBC 3.34 10^6/uL (4.70-6.10) L 09/24/23 04:18
Hgb 9.8 g/dL (13.0-18.0) L 09/24/23 04:18
Hct 28.6 % (39.0-52.0) L 09/24/23 04:18
Plt Count 166 10^3/uL (130-400) 09/24/23 04:18
Sodium 123 mmol/L (135-145) L 09/24/23 09:29
Potassium 4.0 mmol/L (3.5-5.1) 09/24/23 04:18
Chloride 92 mmol/L (98-107) L 09/24/23 04:18
Carbon Dioxide 25 mmol/L (22-30) 09/24/23 04:18
BUN 22 mg/dl (9-20) H 09/24/23 04:18
Creatinine 0.6 mg/dL (0.7-1.3) L 09/24/23 04:18
eGFR > 60.00 09/24/23 04:18
Glucose 97 mg/dl (70-99) 09/24/23 04:18
Calcium 8.0 mg/dl (8.4-10.2) L 09/24/23 04:18
I[place]ucl Pept 711 pg/ml 09/23/23 11:35
Albumin 3.3 g/dl (3.5-5.0) L 09/23/23 11:36
Physical Exam
-
Vital Signs:
Vital Signs
Temp Pulse Resp BP Pulse Ox
98.0 F 73 13 97/58 98
09/24/23 11:20 09/24/23 12:15 09/24/23 12:15 09/24/23 12:00 09/24/23 09:50
Cardiovascular:: Regular rate and rhythm
Respiratory:: Bilateral: CTA
Lung Excursion:: Normal
Abdomen:: Nontender and Soft
Extremity Edema:: +1: Bilateral:
[place] Catheter: No
[2023-09-24] MEDS: ATIVAN 1 MG IV (12:24)
[2023-09-24] MEDS: NSS (PRESERVATIVE FREE) 0.5 ML IV (12:25)
--- NOTE | 2023-09-24 14:33 | PTCARENOTE ---
Pt reassessed. No changes observed. NIHSS remains 0. PRN Ativan administered for MRI. Pt taken and returned to MRI.
[2023-09-24 15:46] LABS: Sodium 125 mmol/L (135-145)
[2023-09-24] MEDS: OXYCONTIN (CONTROLLED RELEASE) PO (17:46)
[2023-09-24] MEDS: LIPITOR 40 MG PO (17:48)
[2023-09-24] MEDS: NON-FORMULARY ITEM 1 TABLET PO (17:48)
--- NOTE | 2023-09-24 20:00 | PTCARENOTE ---
Received pt sitting in chair with at bedside. NIH handoff completed with chio BRUNSON. NIH = 0. AAOx3. Back pain 10/26. Fentanyl patch to Ailyn SEGOVIA, ambulated to bathroom without issue. SR on tele, HR 60s at rest, 100s while ambulating. BP
120s-130s/90s. +1 LE edema. SCDs on. Weak DPs. On RA. Spo2 97%. Lungs CTA but dim at bases. Hypoactive bowel sounds. Poor appetite. 3% saline hung as ordered.
Pt. asked 'so are you going to take me home now?' to . I explained importance of him staying in hospital due to his Na levels and the complications he could have if he left tonight. Pt. not happy to stay but agreeable to spend the night.
[2023-09-24 22:29] LABS: Sodium 125 mmol/L (135-145)
[2023-09-25] VITALS (15 sets, daily range): BP systolic 102–157; BP diastolic 73–100; PULSE 89; BMI 21.8
[2023-09-25] MEDS: ROXICODONE 30 MG PO ×2 (01:06→11:31)
[2023-09-25 02:12] LABS: Sodium 128 mmol/L (135-145)
--- NOTE | 2023-09-25 05:06 | PTCARENOTE ---
3% infusion completed. Repeat labs due 0600. Pt. slept most of the night in the chair. Got up to bathroom and then got back in bed with assistance to get comfortable. Pt. in better spirits this morning but is still saying he will be going home today
no matter what. Discussed plan of care with him.
[2023-09-25 06:22] LABS: Hematocrit 27.5 % (39.0-52.0); Hemoglobin 9.3 g/dL (13.0-18.0); Mean Corp Hgb Conc. 33.8 g/dL (33.0-37.0); Mean Corpuscular Hgb 29.2 pg (27.0-31.0); Mean Corpuscular Volume 86.5 fL (80.0-94.0); Mean Platelet Volume 11.7 fL (7.4-10.4); Platelet Count 161 10^3/uL (130-400); Red Blood Cell Count 3.18 10^6/uL (4.70-6.10); Red Cell Dist. Width 18.2 % (11.5-14.5); White Blood Cell Count 5.8 10^3/uL (4.8-10.8)
--- NOTE | 2023-09-25 07:20 | W.PN.INTV ---
Today's Communication / Plan
Recommendations
Await echocardiogram
Await decision on anticoagulation, pending GI evaluation
Suspicion for embolic phenomena
Encouragingly, has not shown any evidence of bleeding following TNK
Will require close follow-up with GI postoperatively
Disposition efforts
Assessment
-
Abrupt onset of right facial droop and right arm weakness concern for acute ischemic CVA left MCA territory
CT angiogram of the neck:[place] is patent. No filling defect, focal stenosis or aneurysm.
Less than 50% stenosis of the ICA bilaterally.
Patent vertebral arteries.
Mild to moderate degenerative disk and joint disease in the cervical spine.
Severe chronic lung disease in the lung apices. Possible pulmonary nodules.
CT head negative, reviewed
Status post tenecteplase 09/23/2023
Acute on chronic hyponatremia
Mildly positive troponin
Conditions present prior admission:
Esophageal/gastric cancer first chemotherapy September 21, 2023
Paroxysmal atrial fibrillation/bradycardia-patient declined pacemaker in the past
Hepatitis C
Hypothyroidism
Chronic pain on opiates
Assessment and plan:
At this time, patient is without complaints, anxious for discharge
Remains asymptomatic
adamant about eating and going home as is patient
Explained at length need for decision on anticoagulation, given risk for bleeding
Neurological exam improved, nonfocal
Brain MRI with multiple infarcts
Presently on aspirin/Plavix
Blood pressure stable
Urine output adequate, sodium 129
Statins
Eventual echocardiogram, pending
Mildly positive troponin-denies chest pain, trending lower
EKG with accelerated junctional rhythm with retrograde conduction. No ST-T wave abnormalities.
Patient does have a cardiac catheterization from 01/2022 that showed normal coronaries. Report reviewed
Echocardiogram pending
Cardiology following
Recommended to start anticoagulation, awaiting GI clearance
Patient follows GI at [place]
Recent endoscopy with esophageal obstructing lesion, history of GI bleed in the past
Sinus tachycardia: Resolved
Hemodynamically stable
Patient states that he usually is bradycardic.
He has refused pacemaker in the past
Hyponatremia: Possible SIADH from cancer
TSH normal
Nephrology following
Abnormal CT chest: Biapical scarring. Can be addressed in the outpatient setting. If patient agreeable.
Former smoker
Status post chemotherapy September 21, 2023-4 esophageal/gastric cancer
Continue to monitor for infection
Continue to follow hemoglobin
DVT prophylaxis with SCDs
Patient is adamant about leaving home despite ongoing issues as above. Threatening to leave later today regardless
Reviewed at length pathophysiology of embolic process possibly causing multiple strokes with both patient and at length
seems to be concerned only about patient able to eat and nutrition. Education provided
If patient remains neurologically stable and MRI shows no evidence for bleeding. Then transferred to telemetry.
If transferred to telemetry critical care team will sign off. Call pulmonary if any respiratory issues arise.
Subjective Dataa
Subjective Data
Date of Service:
Date of Service: September 25, 2023
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
Subjective:
Patient is without complaints. Denies chest pain, abdominal pain, nausea, cough, lightheadedness, dizziness. Observed ambulating in the room without difficulty. Anxious for discharge. at bedside
Objective Data
Data Reviewed
Vital Signs / I&O / Oxygen:
Vital Signs
Temp Pulse Resp BP Pulse Ox
98.0 F 65 14 134/84 100
09/25/23 03:47 09/25/23 06:00 09/25/23 06:00 09/25/23 06:00 09/25/23 06:00
Intake and Output
09/24/23 09/25/23 09/26/23
06:59 06:59 06:59
Intake Total 200 / 200 660 / 660
Output Total 500 / 500 175 / 175
Balance -300 / -300 485 / 485
SaO2 100
Physical Exam
General: Comfortable and Other (Cachectic)
HEENT: Normocephalic and Anicteric
Cardiovascular: S1-S2, Regular Rhythm, Murmur (n), Rub (n) and Calf Tenderness (n)
Respiratory: Clear, Wheeze (n), Crackles (n), Rhonchi (n), Non-Labored Respirations and Stridor (n)
GI: Soft, Non Distended and Non Tender
Neurology: Awake, Alert and No Motor Deficits (Observed ambulating)
Skin: Cyanosis (n), Jaundice (n) and Rash (n)
Labs/Micro/Reports
Lab Data
09/25/23 06:10
[2023-09-25 08:00] LABS: Blood Urea Nitrogen 28 mg/dl (9-20); Calcium 7.9 mg/dl (8.4-10.2); Carbon Dioxide 30 mmol/L (22-30); Chloride 97 mmol/L (98-107); Estimated Creatinine Clearance > 125 ml/min; Glucose 102 mg/dl (70-99); Magnesium 2.1 mg/dl (1.6-2.3); Potassium 3.9 mmol/L (3.5-5.1); Sodium 129 mmol/L (135-145); eGFR > 60.00
[2023-09-25] MEDS: PLAVIX 75 MG PO (08:23)
[2023-09-25] MEDS: LOW STRENGTH ASPIRIN 81 MG PO (08:23)
[2023-09-25] MEDS: ARMOUR THYROID 60 MG PO (08:23)
[2023-09-25] MEDS: OXYCONTIN (CONTROLLED RELEASE) 40 MG PO (08:23)
[2023-09-25] MEDS: FEOSOL PO (08:24)
--- NOTE | 2023-09-25 08:31 | W.PN.CARDCBS ---
Today's Communication / Plan
-
He has been started on DAPT with ASA and Plavix and would stop Plavix after 21 days.
Discussed with EP and neurology, as this was felt to be embolic event, FLACA would not pipe changer and although atrial fibrillation or atrial flutter have not been seen, he has had paroxysmal atrial tachycardia which in some cases could be
thromboembolic. Discussed consideration for anticoagulation with neuro and he could start this PM from their standpoint.
Would ask for GI to evaluate his known hx of GI bleeding and anemia and bleeding risks associated with his gastric and esophageal cancer.
-Depending on his clinical course and long-term prognosis there could eventually be consideration for Watchman left atrial appendage occlusion if he could tolerate anticoagulation for at least 6 weeks
Regarding his atrial tachycardia and tachycardia-bradycardia, he is not highly symptomatic and he is at risk of PPM with AV eve agents. Cont to monitor.
-If needed could consider very low-dose beta-trisha such as Toprol-XL 12.5 mg daily with the understanding that he may get more bradycardic
Cont medical therapy of nonMI trop with peak tro 0.4. He had unremarkable cardiac cath less than 2 yrs ago.
Echo pending.
Impression / Plan
-
.
Primary project scientist: Dr Franki Farrar.
Impression:
-Acute ischemic stroke involving the left MCA s/p tenecteplase with subsequent marked symptom improvement
-History of paroxysmal atrial tachycardia, PACs and borderline chronotropic incompetence with tachycardia-bradycardia
Symptoms have been difficult to truly attribute to chronotropic incompetence with permanent pacemaker has been recommended as an option, patient has refused.
Have been unable to use beta-trisha and calcium channel trisha to suppress his PAT and PACs over concern for tachycardia-bradycardia syndrome
Neither atrial fibrillation nor atrial flutter have ever been observed in the past
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
currently receiving chemotherapy which was initiated this past , follows with Dr. Mccullough at the [facility]
-GIB and anemia related to his esophageal and gastric cancer
-Hepatitis C
-Coronary angiography February 04, 2022 finds normal coronary arteries
-Hypothyroidism
-Hyponatremia
-Chronic pain, opioid dependent
MRI of brain report: multiple small acute ischemic infarcts diffusely distributed throughout the brain suggesting acute embolic disease. The largest infarct is located in the medial aspect of the left thalamus measuring 1.2 x 1.0 cm in size. There
is a 4 mm subcortical white matter infarct in the left frontal lobe centrum semiovale bilaterally, a 3 mm acute ischemic infarct in the posterior left parietal lobe, a 3.9 mm acute ischemic infarct in the lateral left temporal lobe, multiple small
linear shaped acute ischemic infarcts in the medial right temporal lobe, a 2.3 mm acute ischemic infarct in the head of the right caudate nucleus, and a 3 mm acute ischemic infarct in the posterior right parietal lobe. These infarcts demonstrate
restricted diffusion and containing mild low T1 and high T2/FLAIR signal intensity cytotoxic edema
Plan:
He has been started on DAPT with ASA and Plavix and would stop Plavix after 21 days.
Discussed with EP and neurology, as this was felt to be embolic event, FLACA would not pipe changer and although atrial fibrillation or atrial flutter have not been seen, he has had paroxysmal atrial tachycardia which in some cases could be
thromboembolic. Discussed consideration for anticoagulation with neuro and he could start this PM from their standpoint.
Would ask for GI to evaluate his known hx of GI bleeding and anemia and bleeding risks associated with his gastric and esophageal cancer.
-Depending on his clinical course and long-term prognosis there could eventually be consideration for Watchman left atrial appendage occlusion if he could tolerate anticoagulation for at least 6 weeks
Regarding his atrial tachycardia and tachycardia-bradycardia, he is not highly symptomatic and he is at risk of PPM with AV eve agents. Cont to monitor.
-If needed could consider very low-dose beta-trisha such as Toprol-XL 12.5 mg daily with the understanding that he may get more bradycardic
Cont medical therapy of nonMI trop with peak tro 0.4. He had unremarkable cardiac cath less than 2 yrs ago.
Echo pending.
Reviewed with nursing, family at bedside, manager of care.
Progress Note - Director Of Cardiology
Subjective
Date of Service: September 25, 2023
Pt seen and examined. No chest pain or shortness of breath.
Objective
Labs:
09/25/23 06:10
09/25/23 07:18
Labs
Hgb 9.3 g/dL (13.0-18.0) L 09/25/23 06:10
Hct 27.5 % (39.0-52.0) L 09/25/23 06:10
Plt Count 161 10^3/uL (130-400) 09/25/23 06:10
PT 15.8 Sec (11.4-14.6) H 09/23/23 11:36
INR 1.28 09/23/23 11:36
APTT 30.9 Sec (23.4-35.0) 09/24/23 04:18
Sodium 129 mmol/L (135-145) L 09/25/23 07:18
Potassium 3.9 mmol/L (3.5-5.1) 09/25/23 07:18
BUN 28 mg/dl (9-20) H 09/25/23 07:18
Creatinine 0.6 mg/dL (0.7-1.3) L 09/25/23 07:18
Glucose 102 mg/dl (70-99) H 09/25/23 07:18
Troponins
09/23/23 09/23/23 09/23/23
11:35 17:30 18:16
Troponin I 0.111 H* Cancelled 0.440 H* D
09/23/23 09/24/23 09/24/23
23:30 00:55 06:30
Troponin I Cancelled 0.215 H* D Cancelled
Vital Signs and I&O:
Vital Signs
Temp Pulse Resp BP Pulse Ox
98.7 F 65 14 134/84 100
09/25/23 07:24 09/25/23 06:00 09/25/23 06:00 09/25/23 06:00 09/25/23 06:00
Vital Signs
Temp Pulse Resp BP Pulse Ox
98.7 F 65 14 134/84 100
09/25/23 07:24 09/25/23 06:00 09/25/23 06:00 09/25/23 06:00 09/25/23 06:00
Intake & Output
09/23/23 09/24/23 09/25/23 09/26/23
06:59 06:59 06:59 06:59
Intake Total 200 / 200 660 / 660
Output Total 500 / 500 175 / 175
Balance -300 / -300 485 / 485
Physical Exam
Physical Exam
General: No acute distress, AAOX3
Neck: Negative JVD
Heart: Regular, Negative S3 positive S1/S2, Negative S4, No murmur
Lungs: CTA b/l, negative wheezes/rales/rhonchi
Abd: Positive BS, NT/ND, neg rebound/rigidity/guarding
Ext: Negative cyanosis/clubbing/edema
Neuro: nonfocal
--- NOTE | 2023-09-25 08:41 | W.PN.NEURO.1 ---
Addendum entered and electronically signed by Antonio Hernandez MD 09/25/23 10:44:
Studies reviewed.
I have personally examined the patient. I reviewed and agree with the PECAN CLEANER's Note.
My addenda:
Awake, alert, interactive. No acute distress.
Speech intact. Patient has attention difficulties with inability to perform serial sevens
Follows 2-step requests w/o difficulty. No tremor.
Extra-ocular movements grossly intact.
Facial movements full and symmetric. Hearing intact to normal conversational volume.
Normal UE movements bilaterally.
Neck: full ROM.
Chest: no dyspnea
Heart: no JVD
Ext: (-) Clubbing, (-) Cyanosis, (-) Edema
IMPRESSIONS/RECOMMENDATIONS:
Abrupt onset of speech change
Would convert patient from the use of antiplatelet agents to the use of anticoagulation beginning this evening (September 25, 2023) based on atrial tachycardia and presence of diffuse acute ischemic lesions that are embolic in appearance
Continue rehabilitation evaluations
Continue atorvastatin
D/W patient / family / nursing
All questions answered.
Will continue to follow patient.
Original Note:
Documented by User: Katy Hays NP 09/25/23 09:50
Today's Communication / Plan
-
.
Neuro Assessment/Plan
Assessment
IMPRESSIONS/RECOMMENDATIONS:
Abrupt onset of speech change
MRI brain 09/24/23 demonstrates multiple small acute ischemic infarcts throughout bilateral cerebral hemispheres including a 1.2cm left thalamic ischemic infarct, appearance consistent with an embolic etiology.
Patient received Tenecteplase on 09/23/23 at 1201.
Plan
Recommendations:
-Okay to initiate OAC tonight (09/25/23) per Cardiology. Would continue aspirin 81mg daily only until OAC is initiated as patient received IV TNK.
-TTE pending. Family prefers to avoid FLACA.
-Goal normotension.
-LDL goal <70. LDL is 71. Continue newly initiated atorvastatin 40mg daily.
-Goal normoglycemia, hbA1c is pending.
-NIHSS and neurological checks per unit guidelines.
-Patient/family provided with a stroke education packet.
-PT/OT/ST evaluations.
-DVT prophylaxis.
-Patient should follow-up with Neurology as an outpatient in about 4 weeks, may see the PECAN CLEANER or one of the physicians.
Subjective/Objective
Subjective Data
Date of Service: September 25, 2023
No acute events overnight. Patient denies any headache, dizziness, vision changes, speech/swallow difficulty, nausea, chest pain, palpitations, and shortness of breath.
Objective Data
Vital Signs
Temp Pulse Resp BP Pulse Ox
98.7 F 65 14 134/84 100
09/25/23 07:24 09/25/23 06:00 09/25/23 06:00 09/25/23 06:00 09/25/23 06:00
Lab Results
09/25/23 06:10
09/25/23 07:18
PT 15.8 Sec (11.4-14.6) H 09/23/23 11:36
INR 1.28 09/23/23 11:36
APTT 30.9 Sec (23.4-35.0) 09/24/23 04:18
Sodium 129 mmol/L (135-145) L 09/25/23 07:18
Potassium 3.9 mmol/L (3.5-5.1) 09/25/23 07:18
BUN 28 mg/dl (9-20) H 09/25/23 07:18
Glucose 102 mg/dl (70-99) H 09/25/23 07:18
Calcium 7.9 mg/dl (8.4-10.2) L 09/25/23 07:18
Osc-F-Pexuqtghnzl Pept 711 pg/ml 09/23/23 11:35
LDL Cholesterol, Calc 71 mg/dl 09/24/23 04:18
Patient Allergies
shellfish derived Allergy (Verified 02/04/22 07:44)
Hives
LDL Level: >70, statin ordered
Review of Systems
-
History Source: Patient
EENT: Negative Blurry Vision, Decreased Vision or Swallowing Difficulty
Respiratory: Negative Cough or Trouble Breathing
Cardiac: Negative Chest Pain or Palpitations
Abdomen/GI: Negative Nausea
Neuro: Negative Dizzy, Headache, Weakness, Numbness, Ataxia or Speech Problem
Physical Exam
-
General: Well Developed, Well Nourished and No Apparent Distress
Eyes: No Ptosis and PERRLA
HEENT: Normocephalic and Atraumatic
Neck: Full Range of Motion
Respiratory: No Dyspnea
GI: Non-distended
Skin: Unremarkable
Extremities: No Clubbing, No Cyanosis and No Edema
Psych: Agitated
Extended Neurological Exam
Attention Span & Concentration: Awake, Alert, Interactive and Mild Difficulty with 2 Step Request
Memory: Unremarkable (AAOx3, forgetful) and Able to Recall
Tremor: Hand Tremor Absent and Head Tremor Absent
Involuntary Movement: None
Speech: Quality Unremarkable, Quantity Unremarkable and Rate of Production Unremarkable
Cranial Nerve II: Left Eye: Pupillary Reactivity Unremarkable, Pupillary Size Unremarkable and Visual Chilel Intact
Cranial Nerve II: Right Eye: Pupillary Reactivity Unremarkable, Pupillary Size Unremarkable and Visual Chilel Intact
Cranial Nerves III, IV, : Extraocular Movement: Extraocular Movement Full in all Directions
Cranial Nerve VII: Facial Symmetry: Normal Facial Symmetry
Cranial Nerve VIII: Hearing: Unremarkable Hearing to Normal Conversational Volume
Cranial Nerve XI: Shoulder Shrug: Unremarkable
Cranial Nerve XII: Tongue Protusion: Midline
Muscle Strength, Overall: Full Throughout
Muscle Bulk & Tone: Bulk Unremarkable and Tone Unremarkable
Pronator Drift: No Drift in Upper Extremities and No Drift in Lower Extremities
Touch Sensation: Double Simultaneous Stimulation Unremarkable
Coordination: Lkzqzd-upzn-cbrizo Testing Unremarkable
Modified Huerfano Score (MRS)
-
Modified Christina Scale (mRS): No significant disability. Able to carry out usual activities.
Score: 1
Data Reviewed
-
CT-A: Report Reviewed and Image Reviewed
CT Head: Report Reviewed and Image Reviewed
MRI Head: Report Reviewed and Image Reviewed
Labs: Report Reviewed
Lipid Profile: Report Reviewed
HgbA1C: Report Reviewed
Reviewed with: Physician, Nurse, Patient and Family
Medications
-
Active Medications
Generic Name Dose Route Start Last Admin
Trade Name Freq PRN Reason Stop Dose Admin
Acetaminophen 650 mg 09/23/23 12:31
Acetaminophen 325 Mg Tablet PO 10/21/23 12:30
Q4HPRN PRN
CARR, mild pain, or temp >100.4F
Albuterol 2 puff 09/23/23 16:12
Albuterol Hfa [90 Mcg/Dose] Inhaler INH
R Q4HPRN PRN
WHEEZING/SOB
Protocol
Aspirin 81 mg 09/25/23 08:00 09/25/23 08:23
Aspirin 81 Mg Chewable Tablet PO 10/23/23 07:59 81 mg
DAILY [place] Administration
Atorvastatin Calcium 40 mg 09/23/23 18:00 09/24/23 17:48
Atorvastatin (Lipitor) 40 Mg Tablet PO 10/21/23 17:59 40 mg
QPM [place] Administration
Clopidogrel Bisulfate 75 mg 09/25/23 08:00 09/25/23 08:23
Clopidogrel 75 Mg Tablet PO 10/15/23 08:01 75 mg
DAILY [place] Administration
Docusate Sodium 100 mg 09/24/23 09:51
Docusate Sodium 100 Mg Capsule PO 10/22/23 09:50
BIDPRN PRN
no BM > 24 hours
Fentanyl 1 patch 09/23/23 21:00 09/23/23 22:12
Fentanyl 25 Mcg/Hr Patch TRANSDERM 10/07/23 20:59 1 patch
Q3D [place] Administration
Ferrous Sulfate 325 mg 09/24/23 08:00 09/25/23 08:24
Ferrous Sulfate 325 Mg Tablet PO 10/22/23 07:59 Not Given
DAILY GE[place]IANA
*Pt Own Med* 1 tablet 09/24/23 17:00 09/24/23 17:48
Sofosbuvir-Velpatas- PO 10/22/23 16:59 1 tablet
Voxilaprev(Vosevi) DAILY@1500 [place]NA Administration
400-100-100 Mg Tab;
1 Tab Po Daily
Ondansetron HCl 4 mg 09/23/23 16:12
Ondansetron 4 Mg Tablet PO 10/21/23 16:11
Q6HPRN PRN
NAUSEA
Oxycodone HCl 30 mg 09/23/23 20:09 09/25/23 01:06
Oxycodone 15 Mg Regular Release Tablet PO 10/07/23 20:08 30 mg
Q4HPRN PRN Administration
breakthrough pain
Oxycodone HCl 40 mg 09/23/23 22:00 09/25/23 08:23
Oxycontin 40 Mg Controlled Release Tablet PO 10/07/23 21:59 40 mg
TID [place] Administration
Patch Removal 0 patch 09/23/23 21:00 09/23/23 22:12
Remove Fentanyl Patch REMOVE 10/07/23 20:59 1 patch
Q72H [place] Administration
Prochlorperazine Maleate 10 mg 09/23/23 16:12
Prochlorperazine 10 Mg Tablet PO 10/21/23 16:11
Q6HPRN PRN
NAUSEA
Sodium Chloride 0 flush 09/23/23 16:00
Sodium Chloride 0.9% (Flush) Syringe IV 10/21/23 15:59
PER PROTOCOL GEOR[place]NA
Thyroid 60 mg 09/24/23 07:00 09/25/23 08:23
Thyroid 60 Mg (1 Grain) Tablet PO 10/22/23 06:59 60 mg
DAILY@0700 [place]NA Administration
Home Medications
�Medication �Instructions �Recorded
oxycodone 30 mg tablet,oral ONLY 30 mg PO Q4HPRN PRN breakthrough 02/04/22
(not feeding tubes) pain
Fluorouracil Pump 1 dose IV Q2W Autoimmune Disorder 09/23/23
albuterol sulfate 90 mcg/actuation 2 puff inhalation Q4HPRN PRN 09/23/23
aerosol inhaler WHEEZING/SOB
bismuth subsalicylate 262 mg/15 mL 524 mg PO QID PRN stomach issues 09/23/23
oral suspension (Pepto-Bismol)
fentanyl 25 mcg/hr transdermal 25 mcg transdermal Q3D Pain 09/23/23
patch
ferrous sulfate 325 mg (65 mg 325 mg PO DAILY Supplement 09/23/23
iron) tablet
ondansetron HCl 4 mg tablet 4 mg PO Q6HPRN PRN NAUSEA 09/23/23
oxycodone myristate 36 mg capsule 36 mg PO Q8H Pain 09/23/23
sprinkle extended release
12hr(DON'T CRUSH) (Xtampza ER)
prochlorperazine maleate 10 mg 10 mg PO Q6HPRN PRN NAUSEA 09/23/23
tablet
sofosbuvir 400 mg-velpatasvir 100 1 tab PO DAILY@1500 HEPATITIS C 09/23/23
mg-voxilaprevir 100 mg tablet
(Vosevi)
testosterone enanthate 200 mg/mL 100 mg IM Q2W Hormonal Agent 09/23/23
intramuscular oil
thyroid (pork) 30 mg tablet 60 mg PO DAILY@07 Thyroid 09/23/23
([place] Thyroid)
NIH Stroke Score
Subsequent NIH Scale
Date of Subsequent NIH Scale: 09/25/23
Time of Subsequent NIH Scale: 08:15
NIH Stroke Score
Level of Consciousness: 0 - Alert
LOC Questions: 0-Answers both correctly
LOC Commands: 0-Performs both correctly
Best Horizontal Gaze: 0-Normal
Visual Chilel: 0=Normal, no visual loss
Facial Palsy: 0=Normal, symmetrical
Motor - Right Arm: 0=No drift 10 seconds
Motor - Left Arm: 0=No drift 10 seconds
Motor - Right Le-No drift 5 seconds
Motor - Left Le-No drift 5 seconds
Limb Ataxia: 0-Absent
Sensation: 0-Normal
Best Language: 0-No aphasia
Dysarthria: 0-Normal
Extinction and Inattention: 0-No abnormality
Total Score:: 0
Modified Huerfano (mRS) Score
Modified Huerfano Scale (mRS): No symptoms
Score: 0

Documented by User: Antonio Hernandez MD 09/25/23 10:34
Modified Huerfano Score (MRS)
-
Score: 1
NIH Stroke Score
NIH Stroke Score
Total Score:: 0
Modified Christina (mRS) Score
Score: 0
--- NOTE | 2023-09-25 10:19 | PTCARENOTE ---
Critcal care team in and out at bedside with patient and thru am rounds. (Neurology, Cardiology and strap buckler team in to discuss plan of cares) Echo team at bedside. Cardiology and strap buckler team in and out extensive conversations about
plan of cares. [facility] review events mri and concerns. Continue with teaching, supportive cares, and constant reinforcement.
--- NOTE | 2023-09-25 10:39 | PTCARENOTE ---
Hospitalist team at bedside. Continue updated plan of cares. Patient continues to plan to go home today. Await GI follow up and follow up medication orders. Will continue with teaching and supportive cares.
--- NOTE | 2023-09-25 10:56 | W.PN.HOSP.TC ---
Addendum entered and electronically signed by Gildardo Parker MD 09/25/23 15:37:
Non ischemic myocardial injury
More than 30 minutes spent in discharge including
Final examination of the patient
Summarizing hospital stay
Instructions for continuing care to all relevant caregivers
Preparation of discharge records, prescriptions, and referral forms
Total time spent (in minutes): 60
Original Note:
Today's Communication/Plan
-
see note
Assessment / Plan
Assessment / Plan
63M Hypothyroidism, Atrial Tachy, [place], Esophageal/gastric Ca recently started on Chemo two days ago, Hep C Chronic Pain opiate Dependent p/w rt facial droop and rt arm weakness occurred acutely in the morning noted by 10:30 AM while patient
was sitting on couch, awake alert and coherent during the event.� Prior change patient was in his usual state of health earlier in the morning.� Denies nausea vomiting diarrhea chest pain shortness of breath VSS CT head CTA Head/neck noted no acute
intracranial abn�s filling defect focal stenosis or aneurysm.� �Patient was evaluated and given TPN as per Neuro.� ED evaluation was also notable for hyponatremia 122 and troponin elevation 0.111
Acute CVA
-received TNK 09/22 w/ subsequent resolution of symptoms
-Monitor Neuro-checks
-Neuro eval appreciated cont statin, 21 days dual antiplatelet ASA plavix then stop plavix. cont asa. However, plan for seems to start DOAC pending GI eval.
-MRI 24 hrs post TNK appreciated multiple small acute ischemic infarcts throughout brain, 1.2 cm acute infarct left thalamus, consistent with Acute Embolic Disease
-Cardio consult appreciated consideration oral anticoagulation complicated by hx of GI bleed
-Milk And Cream Grader eval appreciated
-Pending ECHO
-speech eval appreciated soft bite size solids w/ thin liquids, pending VSE
-PT/OT eval pending
-GI c/s in setting of cancer/esophageal stent and need to start anticoagulation
Abnormal CT chest/CXR: Biapical scarring. Can be addressed in the outpatient setting as per pulm/provisioning analyst. If patient agreeable.
Former smoker
Elevated Troponin
likely non-ischemic related 2/2 stroke
trended to peak 0.440 since trended down, chest pain free
Cardiology Consult Appreciated
Hyponatremia
Nephro Consult appreciated
-Continue fluid restriction
-3% NS, lasix prn as per nephro
-avoid overcorrection
-Na improved to 129
Esophageal/Gastric Cancer
Anemia
-Received first chemotherapy on September 20
-H&H stable
Paroxysmal Atrial Tachycardia / Bradycardia
-declined pacemaker in the past
-consideration low dose BB as per cardio
-DOAC plan as above
Hepatitis C
-Continue Vosevi
Hypothyroidism
-Continue thyroid replacement
-TSH wnl
Chronic Pain with Opioid Dependence
-Continue Fentanyl patch, Xtampza ER and oxycodone prn
DVT proph: SCDs
Code Status: Full Code
d/w wtih spouse, cardiology, provisioning analyst.
Dispo-PT/OT, ECHO,GI recs, Nephro recs. Pt insisting on going home later today. Would like to monitor overnight however, he is adamant about leaving later today.
Anticipated Discharge: Today
Subjective/Interval History
-
Date of Service: September 25, 2023
Pt is CVA s/p TNK
Insisting on going home today
does not want to stay in hospital further
eating eggs
Objective Data
-
Labs:
Laboratory Results
09/25/23 09/25/23 09/25/23
01:54 06:10 07:18
WBC 5.8
Hgb 9.3 L
Hct 27.5 L
Plt Count 161
Sodium 128 L Cancelled 129 L
Potassium Cancelled 3.9
Chloride Cancelled 97 L
Carbon Dioxide Cancelled 30
BUN Cancelled 28 H
Creatinine Cancelled 0.6 L
Glucose Cancelled 102 H
Calcium Cancelled 7.9 L
Vital Signs:
Vital Signs
Temp Pulse Resp BP Pulse Ox
98.7 F 71 20 148/87 98
09/25/23 07:24 09/25/23 10:13 09/25/23 10:13 09/25/23 10:13 09/25/23 10:13
I&O
09/24/23 09/25/23 09/26/23
06:59 06:59 06:59
Intake Total 200 / 200 660 / 660
Output Total 500 / 500 175 / 175
Balance -300 / -300 485 / 485
Physical Exam
-
General: No Apparent Distress and Appears Chronically Ill
HEENT: Normocephalic and Atraumatic
Cardiac: S1/S2
Breast: Deferred by me
GI: Nondistended
Skin: Warm
Neuro: Awake, Alert and Oriented
Psych: Calm
Data Reviewed
-
Total Time Spent with Patient (in minutes): 55
[2023-09-25] MEDS: COLACE 100 MG PO (11:12)
--- NOTE | 2023-09-25 11:18 | CM ---
Addendum entered by Gabe Arana 09/25/23 14:53:
Discharge order noted.
Both pt and his spouse are aware and pt is requested to return back home and declined any after care services.
D/C plan: home no needs per pt's request. Spouse to transport.
Original Note:
CM following re: discharge planning.
Discussed in Rounds, reviewed pt's chart, met with pt and pt's spouse Gill at bedside.
Pt is a 63 year old male, admitted with primary dx of Acute stroke.
Pt reports he lives with spouse in a rancher style house, pt has a son. 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 Pt is under going chemotherapy treatment.
Speech therapy evaluation noted - skilled ST recommended.
PT and OT evaluations are pending.
PCP: [facility].
Pharmacy: [facility].
D/C plan: home with anticipated outpatient therapy and family support.
CM will follow with discharge plan updates as hospitalization progresses
--- NOTE | 2023-09-25 11:20 | PTCARENOTE ---
Patient very 'aggravated' doesn't want to be here anymore, keeps telling staff that he is going home. Patient c/c pain everywhere. States doesn't want anything just wants to go home so he and his can take care of themselves. Minimizing
equipment so patient can ambulate room, ambulate to bathroom, and able to get in and out of bed to chair. Updates with hospitalist. Patient started on stool softner c/c'not able to go'. Continue to reinforce plan of cares await GI, patient states he
will make follow up appointments if needed. Continue supportive cares.
--- NOTE | 2023-09-25 11:35 | PTCARENOTE ---
Follow up with hospitalist. Medicated for pain. sitting in chair, pillows blankets for comfort, repositioned self frequently. Continues to ambulate room, ambulate to bathroom.Reinforce teaching, attempt supportive cares ongoing. at bedside..
--- NOTE | 2023-09-25 11:54 | PN.CDI ---
CDI
- -
CDI:
Physician Documentation Request
Admit Date: 09/23/23 13:15
Dear Doctor Elena,
Please review the following and provide your response in the progress notes.
Clinical Indicators:
PN, 09/24
#Elevated Troponin
#likely non-ischemic related 2/2 stroke
#trended to peak 0.440 since trended down, chest pain free
Laboratory Tests
09/23/23 09/23/23 09/24/23
11:35 18:16 00:55
Troponin I 0.111 H* 0.440 H* D 0.215 H* D
Please clarify in the etiology of the troponin elevations:
Non ischemic myocardial injury
Abnormal lab value, clinically insignificant
Other
Use of terms such as suspected, likely, concern for, or probable (associated with a specific diagnosis that is being evaluated, monitored, or treated as if it exists) are acceptable and can be coded in the inpatient setting, when documented at the
time of discharge.
Thank you,
Jessica Marquez RN BSN CCDS
CDI Specialist
please contact via tiger text
Please use your independent medical judgment in providing your response.
[2023-09-25 11:58] LABS: Glycohemoglobin (HgbA1c) 4.9 % (4.0-5.6)
--- NOTE | 2023-09-25 12:03 | PTCARENOTE ---
GI at bedside. Will follow up plan of cares. Continue supportive cares. PT/OT at bedside continue to follow. Speech updated patient plan to go home. Continue rounds and frequent updates.
--- NOTE | 2023-09-25 12:17 | PTCARENOTE ---
GI team at bedside. Updated plan of cares. Working with pt/ot at this time. Asking staff what time he can leave. Update with Forensic Document Examiner, GI, neurology and hospitalist team. Continue supportive cares.
--- NOTE | 2023-09-25 12:33 | CON.GI ---
Consultation
-
Date/Time Consultation Performed: 09/25/23
Performing Provider: Damián Masterson MD
Reason for Consultation: GE junction CA, risk of bleeding
Medical History
Chief Complaint / HPI
Chief Complaint: CVA
History of Present Illness:
The patient is a 63-year-old male with past medical history as noted with new CVA. His MRI showed changes consistent with embolic stroke. We are consulted for bleeding risk with recent diagnosis of what sounds like GE junction carcinoma. He had
procedures done at the recommended by Dr. Montalvo by report, initially colonoscopy for positive Cologuard in June, then recent endoscopy that showed large partially obstructing mass in the distal esophagus into the fundus. He had a laparoscopy
for staging as well, currently undergoing chemotherapy for hopeful downstaging and possible resection in the future. On presentation to the emergency room here he received tPA. Has been doing well overall and has had no signs of bleeding, and is
more on the constipated side. Denies any dysphagia or odynophagia, fever or chills.
Past Medical History
Past Medical History: Other (Hepatitis C Hypothyroidism Paroxysmal Atrial Tachycardia / Bradycardia Chronic Pain with Opioid Dependence )
Past Surgical History: Other (Right Rotator Cuff)
Social History
Tobacco: Former Smoker
Alcohol: Former
Family History
Family History: Reviewed & Not Pertinent
Allergies / Home Medications
Allergy/AdvReac Type Severity Reaction Status Date / Time
shellfish derived Allergy Hives Verified 02/04/22 07:44
�Medication �Instructions �Recorded
oxycodone 30 mg tablet,oral ONLY 30 mg PO Q4HPRN PRN breakthrough 02/04/22
(not feeding tubes) pain
Fluorouracil Pump 1 dose IV Q2W Autoimmune Disorder 09/23/23
albuterol sulfate 90 mcg/actuation 2 puff inhalation Q4HPRN PRN 09/23/23
aerosol inhaler WHEEZING/SOB
bismuth subsalicylate 262 mg/15 mL 524 mg PO QID PRN stomach issues 09/23/23
oral suspension (Pepto-Bismol)
fentanyl 25 mcg/hr transdermal 25 mcg transdermal Q3D Pain 09/23/23
patch
ferrous sulfate 325 mg (65 mg 325 mg PO DAILY Supplement 09/23/23
iron) tablet
ondansetron HCl 4 mg tablet 4 mg PO Q6HPRN PRN NAUSEA 09/23/23
oxycodone myristate 36 mg capsule 36 mg PO Q8H Pain 09/23/23
sprinkle extended release
12hr(DON'T CRUSH) (Xtampza ER)
prochlorperazine maleate 10 mg 10 mg PO Q6HPRN PRN NAUSEA 09/23/23
tablet
sofosbuvir 400 mg-velpatasvir 100 1 tab PO DAILY@1500 HEPATITIS C 09/23/23
mg-voxilaprevir 100 mg tablet
(Vosevi)
testosterone enanthate 200 mg/mL 100 mg IM Q2W Hormonal Agent 09/23/23
intramuscular oil
thyroid (pork) 30 mg tablet 60 mg PO DAILY@07 Thyroid 09/23/23
([place] Thyroid)
atorvastatin 40 mg tablet 40 mg PO QPM 30 days #30 tabs 09/25/23
Review of Systems
-
All other systems: A 12 pt ROS was Negative except as stated above in HPI
Vital Signs
Temp Pulse Resp BP Pulse Ox
98.7 F 75 18 145/94 98
09/25/23 07:24 09/25/23 12:07 09/25/23 12:07 09/25/23 12:07 09/25/23 10:13
Physical Exam
Exam
General: NAD, thin appearing
HEENT: MMM, anicteric, no lymphadenopathy
Heart: Regular, no murmurs
Lungs: CTA bilaterally
Abdomen: normal bowel sounds, soft, no tenderness, no rebound or guarding, no masses, bruits or ascites
Extremeties: no edema
Skin: no rashes
Results
WBC 5.8 10^3/uL (4.8-10.8) 09/25/23 06:10
Hgb 9.3 g/dL (13.0-18.0) L 09/25/23 06:10
Hct 27.5 % (39.0-52.0) L 09/25/23 06:10
MCV 86.5 fL (80.0-94.0) 09/25/23 06:10
Plt Count 161 10^3/uL (130-400) 09/25/23 06:10
Absolute Neuts (auto) 7.4 10^3/uL (1.4-6.5) H 09/23/23 11:36
PT 15.8 Sec (11.4-14.6) H 09/23/23 11:36
INR 1.28 09/23/23 11:36
APTT 30.9 Sec (23.4-35.0) 09/24/23 04:18
Sodium 129 mmol/L (135-145) L 09/25/23 07:18
Potassium 3.9 mmol/L (3.5-5.1) 09/25/23 07:18
Chloride 97 mmol/L (98-107) L 09/25/23 07:18
Carbon Dioxide 30 mmol/L (22-30) 09/25/23 07:18
BUN 28 mg/dl (9-20) H 09/25/23 07:18
Creatinine 0.6 mg/dL (0.7-1.3) L 09/25/23 07:18
Calcium 7.9 mg/dl (8.4-10.2) L 09/25/23 07:18
Total Bilirubin 0.7 mg/dl (0.2-1.3) 09/23/23 11:36
AST 37 U/L (17-59) 09/23/23 11:36
ALT 18 U/L (0-50) 09/23/23 11:36
Alkaline Phosphatase 53 U/L (38-126) 09/23/23 11:36
Diagnostic Image Results:
Prior GI Procedures:
EGD:
Colonoscopy:
Assessment / Plan
-
1. GE junction adenocarcinoma: Large, partially obstructing tumor by report, though overall doing well symptom bryant. We are asked to discuss his bleeding risk. This is a difficult clinical scenario is given any tumor would have increased bleeding
risk, though it is encouraging that he did tolerate tPA without difficulty. At this point there is no absolute contraindication to either anticoagulation or dual antiplatelet therapy if indicated, with close monitoring. Obviously if there is
significant bleeding then would need to change direction, though again would be okay from GI standpoint. We will sign off for now, please go back with any further questions.
-
-
Thank you for consultation and allowing me to participate in the patient's care. Please call the director of land acquisition GI physician during the after hours with any questions or concerns.
--- NOTE | 2023-09-25 13:29 | PTCARENOTE ---
Family remains at bedside. Await updated plan of cares. Patient ambulating ICU. Will continue rounds and updates when available.
--- NOTE | 2023-09-25 13:55 | W.DCSUMMARY ---
Discharge Summary
Discharge Data
Date of Admission: 09/23/23
Date of Discharge: 09/25/23
-
Pending Results: No
Hospital Course
63 yo M with pas t medical history of esophageal/gastric cancer on chemotherapy, atrial fibrillation with bradycardia has refused pacemaker, hepatitis C, hypothyroidism, chronic pain on opioids, opioid dependent daily basis who is presenting with
acute onset of right facial droop, right arm weakness. Patient was a stroke alert and underwent CT imaging. CT of the head was negative for acute bleed. CT angiogram of the neck with patent no stenosis or aneurysm. Patient received TNK and was
admitted to the medical ICU. Patient case was discussed with multiple specialty ask cardiology was consulted. Neurology was following the patient. Patient also with hyponatremia and received 3% and lasix. Sodium slowly uptrended. Patient was
insisting on going home. Patient echo was fortunately completed showed echodensity. After discussion with gastroenterology, cardiology and neurology plan will be to discontinue antiplatelet agent and start patient on Eliquis. Patient received TNK
without any complication does fortunately should be okay with Eliquis. This was discussed with patient and patient's spouse by myself and multiple specialties. Patient did not want stay in the hospital for any further management. Patient was
discharged home recommend patient to have repeat blood work done later this week to see sodium stabilization and CBC has started on Eliquis. Also her type of nephrology recommending Lasix 20 mg p.o. daily for hyponatremia. Patient left the
hospital and was able to get in touch with him via phone. Patient was informed to supervisor picking crew additional meds including statin and Eliquis and now Lasix 20 mg p.o. daily. Answered all patient questions.
Discharge Plan
-
Patient Disposition: Home with Home Care
Discharge Diagnosis/Procedures: Acute CVA Status post tenecteplase 09/23/2023
Nonischemic myocardial injury
Acute on chronic hyponatremia
Condition: Fair
Diet: As tolerated and Low Cholesterol
Activity: With assistance and As tolerated
Driving Restrictions: Not until seen by your Dr
Blood Work: CBC and BMP in 2-3days via primary doctor.
Referrals:
Antonio Hernandez MD [Active] - in four to six weeks
Davis Aponte MD [Active] - None (Follow-up with pulmonary in regards for bilateral apical scarring.)
Kaushik Farrar MD [Active] - 10/02/23 11:00 am (You are seeing Dr. Kaushik Farrar's electrophysiology associate, Dr. Augustine Stubbs, on 10/01/22 at 11 AM at the [place] office. )
UNKNOWN - PT DOES,NOT KNOW [Family Provider] -
Additional Discharge Medication Instructions: Pepto has a salicylate in it so in combination with eliquis could increase bleed risk. Concomitant use can be done would just have to weight risk benefit.
Prescriptions:
New
atorvastatin 40 mg Tablet
40 mg PO QPM 30 Days Qty: 30 0RF
Eliquis 5 mg tablet
5 mg PO BID Qty: 60 0RF
furosemide [Lasix] 20 mg tablet
20 mg PO DAILY Qty: 30 0RF
Continued
oxycodone 30 mg Tablet, Oral Only
30 mg PO Q4HPRN PRN (Reason: breakthrough pain)
Patient Comments:
09/23/2023: last filled 09/22/23, 30 tabs for 10 days from [facility]
ondansetron HCl 4 mg tablet
4 mg PO Q6HPRN PRN (Reason: NAUSEA)
prochlorperazine maleate 10 mg tablet
10 mg PO Q6HPRN PRN (Reason: NAUSEA)
fentanyl 25 mcg/hr patch 72 hour
25 mcg transdermal Q3D
Patient Comments:
09/23/2023: last filled 09/21/23, 10 patches for 30 days from [facility], started 09/22/23
Rx Instructions:
CURRENT PATCH PLACED 09/22/23
albuterol sulfate 90 mcg/actuation HFA aerosol inhaler
2 puff INHALATION Q4HPRN PRN (Reason: WHEEZING/SOB)
thyroid (pork) [[place] Thyroid] 30 mg tablet
60 mg PO DAILY@07
Xtampza ER 36 mg cap,sprinkl,ER12hr(DONT CRUSH)
36 mg PO Q8H
Patient Comments:
09/23/2023: last filled 09/20/23, 90 tabs for 30 days from [facility]
Vosevi 400-100-100 mg tablet
1 tab PO DAILY@1500
ferrous sulfate 325 mg (65 mg iron) Tablet
325 mg PO DAILY
testosterone enanthate 200 mg/mL oil
100 mg IM Q2W
Fluorouracil Pump
1 dose IV Q2W
Patient Comments:
09/23/2023: 5-FU 2600mg/m2* BSA 1.99= 5174mg IV over 24 hrs every 2 weeks
Discontinued
bismuth subsalicylate [Pepto-Bismol] 262 mg/15 mL Suspension
524 mg PO QID PRN (Reason: stomach issues)
Discharge Orders:
Discharge Patient (As Directed); Ordered 09/25/23
Ordered By: Gildardo Parker
Discharge Date and Time
Print Language: HEBREW
--- NOTE | 2023-09-25 13:58 | W.PN.UPDATE ---
Update Note
Progress Note Update
Talked with patient and family in room. Updated on echo results including preserved EF 50-55% and TV echodensity concerning for possible thrombus. Talked about plan to d/c DAPT therapy and to instead pursue OAC with Eliquis. Explained how DAPT was
different from OAC and signs/symptoms to look for with bleeding. Reviewed plan to start Eliquis 5 mg BID (age 63, Cre 0.6, wt 73 kg) tonight. Also updated them on next scheduled appt and added this to discharge instructions. Will cancel upcoming
echo that was scheduled for 10/03/23 and reschedule for 2-3 months form now.
--- NOTE | 2023-09-25 14:39 | PTCARENOTE ---
Updated discharge teaching. Lines dc'd follow up appointments reviewed. Discharge teaching with reinforced. Vital signs as documented. Assessment unchanged.
--- NOTE | 2023-09-25 15:49 | W.PN.NEPH.PH ---
Today's Communication / Plan
-
for discharge today
d/c on lasix 20mg daily with planned labs for 1 and 2 weeks post discharge
follow up with PCP
Assessment/Plan
-
IMP:
Abrupt Onset of Right Facial Droop and Right Arm Weakness concern for Acute Stroke s/p tenecteplase in ED
Elevated Troponin
Acute on chr Hyponatremia
Esophageal/Gastric Cancer -Received first chemotherapy on September 20 at [facility]
Paroxysmal Atrial Tachycardia / Bradycardia
Hepatitis C-Vosevi
Hypothyroidism
Chronic Pain with Opioid Dependence
Plan:
A/w CVA symp s/p Tenecteplase
Acute on chr hyponatremia- Uosm 443, Nghia 25
improved to 129 today s/p lasix
suspect high ADH state from malignancy, chr pain
agree with FR, lasix 20mg daily, and labs 1 & 2 weeks s/p discharge
TSH is normal
BP are soft, check cortisol too
cards consulted for high [id number]
neuro follows
d/w patient
-
-
Date of Service: September 25, 2023
CC / HPI / ROS
-
Chief Complaint:
hyponatremia
History of Present Illness:
sodium better to 129
normotensive
hb low 9.3
Review of Systems:
could not sleep in bed with back pain, sitting in chair currently
weakness and speech improved
no n/v but difficulty to eat solid foods with GI cancer
Labs
-
Labs:
WBC 5.8 10^3/uL (4.8-10.8) 09/25/23 06:10
RBC 3.18 10^6/uL (4.70-6.10) L 09/25/23 06:10
Hgb 9.3 g/dL (13.0-18.0) L 09/25/23 06:10
Hct 27.5 % (39.0-52.0) L 09/25/23 06:10
Plt Count 161 10^3/uL (130-400) 09/25/23 06:10
Sodium 129 mmol/L (135-145) L 09/25/23 07:18
Potassium 3.9 mmol/L (3.5-5.1) 09/25/23 07:18
Chloride 97 mmol/L (98-107) L 09/25/23 07:18
Carbon Dioxide 30 mmol/L (22-30) 09/25/23 07:18
BUN 28 mg/dl (9-20) H 09/25/23 07:18
Creatinine 0.6 mg/dL (0.7-1.3) L 09/25/23 07:18
eGFR > 60.00 09/25/23 07:18
Glucose 102 mg/dl (70-99) H 09/25/23 07:18
Calcium 7.9 mg/dl (8.4-10.2) L 09/25/23 07:18
Ulp-U-Tumbzktqspn Pept 711 pg/ml 09/23/23 11:35
Albumin 3.3 g/dl (3.5-5.0) L 09/23/23 11:36
Physical Exam
-
Vital Signs:
Vital Signs
Temp Pulse Resp BP Pulse Ox
98.7 F 77 20 138/85 97
09/25/23 07:24 09/25/23 14:31 09/25/23 14:31 09/25/23 14:31 09/25/23 14:31
Cardiovascular:: Regular rate and rhythm
Respiratory:: Bilateral: CTA
Lung Excursion:: Normal
Abdomen:: Nontender and Soft
Bowel Sounds:: Normal
Extremity Edema:: None: Bilateral:
Salazar Catheter: No
== END 2023-09-25 15:11 | disposition home health service (06) | DRG 61 ==
LOC: ICU 13:15
PROVIDERS: Nurse Practitioner Family; ADMITTING PHYSICIAN Internal Medicine; ATTENDING PHYSICIAN Hospitalist; CONSULT PHYSICIAN Internal Medicine; CONSULT PHYSICIAN Internal Medicine Cardiovascular Disease; CONSULT PHYSICIAN Internal Medicine Critical Care Medicine; CONSULT PHYSICIAN Internal Medicine Gastroenterology; CONSULT PHYSICIAN Psychiatry & Neurology Neurology; EMERGENCY PHYSICIAN Emergency Medicine
PROC: 3E03317 Introduction of Other Thrombolytic into Peripheral Vein, Percutaneous Approach (ICD-10-PCS; 2023-09-23)
DX: I63.412 Cerebral infarction due to embolism of left middle cerebral artery (principal); G93.6 Cerebral edema; C16.0 Malignant neoplasm of cardia; E87.1 Hypo-osmolality and hyponatremia; I5A Non-ischemic myocardial injury (non-traumatic); C78.89 Secondary malignant neoplasm of other digestive organs; I47.19 Other supraventricular tachycardia; F11.20 Opioid dependence, uncomplicated; E03.9 Hypothyroidism, unspecified
CPT/HCPCS: 70450; 70496; 70498; 70551; 71045; 80048; 80053; 80061; 82570; 83036; 83735; 83880; 83935; 84295; 84300; 84443; 84484; 85025; 85027; 85610; 85730; 92610; 93005; 93306; 97163; 97166; 97530; 99291; J3101; Q9967

== ENCOUNTER 2023-09-26 14:29 | Inpatient (IN) | payer OTHER, SELFPAY ==
[2023-09-26] VITALS (15 sets, daily range): BP systolic 93–129; BP diastolic 56–100; BMI 22.0
[2023-09-26 12:44] LABS: % Basophils 1.4 % (0-2); % Immature Granulocytes 2.4 % (0-0.5); % Lymphocytes 12.5 % (20.5-51.1); % Monocytes 3.1 % (1.7-9.3); % Neutrophils 79.6 % (42.2-75.2); Absolute Immature Granulocytes 0.1 10^3/uL (0-0.05); Absolute Lymphocytes 0.4 10^3/uL (1.2-3.4); Absolute Monocytes 0.1 10^3/uL (0.1-0.6); Absolute Neutrophils 2.3 10^3/uL (1.4-6.5); Hematocrit 23.4 % (39.0-52.0); Hemoglobin 7.8 g/dL (13.0-18.0); Mean Corp Hgb Conc. 33.3 g/dL (33.0-37.0); Mean Corpuscular Hgb 28.6 pg (27.0-31.0); Mean Corpuscular Volume 85.7 fL (80.0-94.0); Nucleated Red Blood Cells % 0 % (-); Platelet Count 149 10^3/uL (130-400); Red Blood Cell Count 2.73 10^6/uL (4.70-6.10); Red Cell Dist. Width 17.9 % (11.5-14.5); White Blood Cell Count 2.9 10^3/uL (4.8-10.8)
[2023-09-26 13:00] LABS: ALT (SGPT) 14 U/L (0-50); AST (SGOT) 34 U/L (17-59); Alkaline Phosphatase 45 U/L (38-126); Blood Urea Nitrogen 32 mg/dl (9-20); Carbon Dioxide 30 mmol/L (22-30); Chloride 92 mmol/L (98-107); Glucose 115 mg/dl (70-99); Potassium 3.7 mmol/L (3.5-5.1); Sodium 127 mmol/L (135-145); Total Bilirubin 0.7 mg/dl (0.2-1.3); Total Protein 5.6 g/dl (6.3-8.2); eGFR > 60.00
--- NOTE | 2023-09-26 13:13 | ED.GENMED ---
History of Present Illness
<Jeremy Sterling PA-C - Last Filed: 09/26/23 13:17>
General
Chief Complaint: Cough
Source: patient
Exam Limitations: none
Time Seen by Provider: 09/26/23 12:36
Travel History
Have you had any contact with someone who has COVID-19?: No
Do you have any symptoms of coronavirus? Fever > 100 degrees, chills, cough, shortness of breath, sore throat, loss of taste or smell, muscle aches, or headache?: No
History of Present Illness
History of Present Illness:
63-year-old male complicated medical history with history of stomach and esophageal cancer, hepatitis C recent stroke. Was admitted to this hospital over the weekend after a stroke. He received TNK then after discussion with multiple specialists
was started on Eliquis. First and only dose was last evening and after this he developed several episodes of bloody vomit. He denies chest pain. He notes fatigue. He notes chronically dark stools. He is followed by oncology at [facility].
Past History
<Jeremy Sterling PA-C - Last Filed: 09/26/23 13:17>
Past History
ED Past Medical History: Arrthythmia (atrial tachycardia), Asthma, Cancer (esophageal 09/2023), Hypothyroidism and Other (Hemochromatosis, Sleep apnea, Hep C)
ED Past Surgical History: Other (laparoscopy 09/2023, port placement 09/2023)
Social History
Tobacco: Non-smoker
Alcohol: Former (age 43)
Drug: None
Personal:
Living: with family
Family History
Family History: Other (reviewed and non-contributory)
Phy Exam
<Jeremy Sterling PA-C - Last Filed: 09/26/23 13:17>
Physical Exam
Physical Exam:
General: Chronically ill pale appearing male no acute respiratory distress HEENT: Normocephalic atraumatic neck is supple
Heart: Regular rate and rhythm lungs: Clear no wheeze or Rales
Abdomen is soft mildly diffusely tender no guarding rebound normal bowel sounds
Extremities: No cyanosis
Course
<Jeremy Sterling PA-C - Last Filed: 09/26/23 13:17>
Orders/Labs/Results
Orders:
Orders
09/26/23 12:29
Type+Screen Urgent
Complete Blood Count/With Diff Urgent
Comprehensive Metabolic Panel Urgent
09/26/23 12:54
Blood Bank Products [* Blood Bank Products] Urgent
Blood Bank Products: *Packed RBC Leuko(PRBC's)
Quantity: 1
Transfuse Today: Yes
Reason: Anemia
Pantoprazole [Protonix IV] 80 mg IV NOW STA
09/26/23 13:00
Pantoprazole 80 mg/100 ml Nss [Protonix] 80 mg in 100 ml IV Q10H
Abnormal Lab Results
09/26/23
12:29
WBC 2.9 L 10^3/uL
(4.8-10.8)
RBC 2.73 L 10^6/uL
(4.70-6.10)
Hgb 7.8 L g/dL
(13.0-18.0)
Hct 23.4 L %
(39.0-52.0)
RDW 17.9 H %
(11.5-14.5)
Abs Immat Gran (auto) 0.1 H 10^3/uL
(0-0.05)
Absolute Lymphs (auto) 0.4 L 10^3/uL
(1.2-3.4)
Immature Gran % 2.4 H %
(0-0.5)
Neutrophils % 79.6 H %
(42.2-75.2)
Lymphocytes % 12.5 L %
(20.5-51.1)
Sodium 127 L mmol/L
(135-145)
Chloride 92 L mmol/L
(98-107)
BUN 32 H mg/dl
(9-20)
Creatinine 0.6 L mg/dL
(0.7-1.3)
Glucose 115 H mg/dl
(70-99)
Calcium 8.0 L mg/dl
(8.4-10.2)
Total Protein 5.6 L g/dl
(6.3-8.2)
Albumin 3.0 L g/dl
(3.5-5.0)
09/26/23 12:29
09/26/23 12:29
Vital Signs
Initial and Last Documented VS:
Initial Vital Signs
Temp Pulse Resp BP Pulse Ox
97.6 F 74 16 122/94 100
09/26/23 11:36 09/26/23 11:36 09/26/23 11:36 09/26/23 11:36 09/26/23 11:36
Last Documented Vital Signs
Temp Pulse Resp BP Pulse Ox
97.6 F 74 16 122/94 100
09/26/23 11:36 09/26/23 11:36 09/26/23 11:36 09/26/23 11:36 09/26/23 11:36
<June Mays MD - Last Filed: 09/26/23 13:33>
Orders/Labs/Results
Orders:
Orders
09/26/23 12:29
Type+Screen Urgent
Complete Blood Count/With Diff Urgent
Comprehensive Metabolic Panel Urgent
09/26/23 12:54
Blood Bank Products [* Blood Bank Products] Urgent
Blood Bank Products: *Packed RBC Leuko(PRBC's)
Quantity: 1
Transfuse Today: Yes
Reason: Anemia
Pantoprazole [Protonix IV] 80 mg IV NOW STA
09/26/23 13:00
Pantoprazole 80 mg/100 ml Nss [Protonix] 80 mg in 100 ml IV Q10H
Abnormal Lab Results
09/26/23
12:29
WBC 2.9 L 10^3/uL
(4.8-10.8)
RBC 2.73 L 10^6/uL
(4.70-6.10)
Hgb 7.8 L g/dL
(13.0-18.0)
Hct 23.4 L %
(39.0-52.0)
RDW 17.9 H %
(11.5-14.5)
Abs Immat Gran (auto) 0.1 H 10^3/uL
(0-0.05)
Absolute Lymphs (auto) 0.4 L 10^3/uL
(1.2-3.4)
Immature Gran % 2.4 H %
(0-0.5)
Neutrophils % 79.6 H %
(42.2-75.2)
Lymphocytes % 12.5 L %
(20.5-51.1)
Sodium 127 L mmol/L
(135-145)
Chloride 92 L mmol/L
(98-107)
BUN 32 H mg/dl
(9-20)
Creatinine 0.6 L mg/dL
(0.7-1.3)
Glucose 115 H mg/dl
(70-99)
Calcium 8.0 L mg/dl
(8.4-10.2)
Total Protein 5.6 L g/dl
(6.3-8.2)
Albumin 3.0 L g/dl
(3.5-5.0)
09/26/23 12:29
09/26/23 12:29
Vital Signs
Initial and Last Documented VS:
Initial Vital Signs
Temp Pulse Resp BP Pulse Ox
97.6 F 74 16 122/94 100
09/26/23 11:36 09/26/23 11:36 09/26/23 11:36 09/26/23 11:36 09/26/23 11:36
Last Documented Vital Signs
Temp Pulse Resp BP Pulse Ox
97.6 F 74 16 122/94 100
09/26/23 11:36 09/26/23 11:36 09/26/23 11:36 09/26/23 11:36 09/26/23 11:36
<Jeremy Sterling PA-C - Last Filed: 09/26/23 13:17>
MDM/Problems Addressed
Differential Diagnosis Includes:
Patient main complaint is fatigue with bloody vomit. Complicated past history. Recent initiation of Eliquis had 1 dose last evening and has had several episodes of bloody vomit since. Hemoglobin slowly trending down now 7.8. Blood pressure on
the softer side. Will initiate Protonix. He is receiving treatment for hepatitis C however I think the importance of Protonix for his upper GI bleed outweighs the potential risk of interaction with his hep C treatment. Spoke with pharmacy
regarding this. Hospitalist and GI team made aware
<Jeremy Sterling PA-C - Last Filed: 09/26/23 13:17>
*Critical Care Note
Total Time (30-74mins, 75-104mins- exclusive of procedures): Not Applicable
ED Attending Note
<Jeremy Sterling PA-C - Last Filed: 09/26/23 13:17>
-
Portions of this chart may have been created with voice recognition software.� Occasional wrong word or��sound alike� substitutions may have occurred due to the inherent limitations of voice recognition software.
<June Mays MD - Last Filed: 09/26/23 13:33>
ED Attending Note
Patient seen and examined by attending physician: Yes
I performed the substantive portion of visit, reviewed & personally made and approve the management plan that is documented in note by myself or ELIGIO.: Yes
ED Attending Note:
Patient personally evaluated by me. Patient appears pale but nontoxic and is fully conversational. He is in no respiratory distress. Abdomen is soft. Patient understands he will be getting blood transfusion and admission for likely upper GI
bleed.
Discharge Plan
Departure
Patient Disposition: Admit
Date of Disposition: 09/26/23
Time of Disposition: 13:16
Admit to: Telemetry
Presentation/result/management discussed w/ accepting MD/DO: Hospitalist
Discharge Problem:
Acute GI bleeding, Anemia
Prescriptions:
No Action
oxycodone 30 mg Tablet, Oral Only
30 mg PO Q4HPRN PRN (Reason: breakthrough pain)
Patient Comments:
09/23/2023: last filled 09/22/23, 30 tabs for 10 days from [facility]
ondansetron HCl 4 mg tablet
4 mg PO Q6HPRN PRN (Reason: NAUSEA)
prochlorperazine maleate 10 mg tablet
10 mg PO Q6HPRN PRN (Reason: NAUSEA)
fentanyl 25 mcg/hr patch 72 hour
25 mcg transdermal Q3D
Patient Comments:
09/23/2023: last filled 09/21/23, 10 patches for 30 days from [facility], started 09/22/23
Rx Instructions:
CURRENT PATCH PLACED 09/22/23
albuterol sulfate 90 mcg/actuation HFA aerosol inhaler
2 puff INHALATION Q4HPRN PRN (Reason: WHEEZING/SOB)
thyroid (pork) [[place] Thyroid] 30 mg tablet
60 mg PO DAILY@0700
Xtampza ER 36 mg cap,sprinkl,ER12hr(DONT CRUSH)
36 mg PO Q8
Patient Comments:
09/23/2023: last filled 09/20/23, 90 tabs for 30 days from [facility]
Vosevi 400-100-100 mg tablet
1 tab PO DAILY@1500
testosterone enanthate 200 mg/mL oil
100 mg IM Q2W
Fluorouracil Pump
1 dose IV Q2W
Patient Comments:
09/23/2023: 5-FU 2600mg/m2* BSA 1.99= 5174mg IV over 24 hrs every 2 weeks
atorvastatin 40 mg Tablet
40 mg PO QPM 30 Days Qty: 30 0RF
Eliquis 5 mg tablet
5 mg PO BID Qty: 60 0RF
furosemide [Lasix] 20 mg tablet
20 mg PO DAILY Qty: 30 0RF
docusate sodium [Colace] 100 mg Capsule
100 mg PO DAILY
bisacodyl 5 mg Tablet
5 mg PO DAILYPRN PRN (Reason: constipation)
Referrals:
Noble Goodwin PA-C [Family Provider] -
Interventions
Interventions:
*General Assessment Last Done: 09/26/23 11:36
ED- Pulmonary Assessment Last Done: 09/26/23 12:56
Discharge Date and Time
Print Language: BANGLADESHI
[2023-09-26] MEDS: PROTONIX IV 80 MG IV (13:23)
[2023-09-26] MEDS: PROTONIX 100 IV ×2 (13:23→22:15)
--- NOTE | 2023-09-26 13:24 | W.PN.UPDATE ---
Update Note
Progress Note Update
This note serves as an addendum to H&P dictated by Michaelle Stanley on 09/26/2023.
I saw and examined the patient.
The VALUE ADVISOR or PA's note was reviewed and I agree with the note.
Comment:
Patient is 63 years old male with history of esophageal cancer, hepatitis C, recent stroke status post thrombolysis over the weekend came into the hospital with hematemesis. Patient has been having dark stools but states that is chronic in basis
and he had several episodes of nausea and vomiting and a few episodes of hematemesis last evening. He took his first dose of anticoagulation, Eliquis last evening. He denies any chest pain or shortness of breath. He does have some generalized
fatigue. In the ED, hemoglobin noted to be 7.8 and it was 9.3 on 09/24; blood pressure on the lower side. He was referred to hospitalist for further evaluation.
Physical exam:
General: Acutely ill
HEENT: Normocephalic, Atraumatic and Moist Mucous Membranes
Respiratory: Clear to Auscultation; Negative Wheezes, Rales or Rhonchi
Cardiac: Regular Rhythm and S1/S2
GI: Soft, Nontender and Nondistended
Musculoskeletal: No Clubbing, No Cyanosis. B/L Edema
Neuro: Awake, Alert and Oriented
Psych: Calm
A/P:
Acute GI bleed, likely upper--> IV fluids, vascular access, IV Protonix, monitor hemoglobin closely and blood transfusion as needed. GI consult. Hold anticoagulant. Will give further recommendations based on clinical course.
--- NOTE | 2023-09-26 13:39 | HPS.HSE ---
Addendum entered and electronically signed by AKBAR Davis 09/26/23 16:01:
Okay for clears per GI
May resume p.o. meds per attending
Original Note:
Family Physician
-
Family Physician: YAMILKA PAPPAS PA-C
Chief Complaint
-
Hemoptysis/hematemesis on Eliquis
History of Present Illness
63-year-old male complaining of coughing up blood mixed with mucus some episodes of coffee-ground emesis and very tiny clots last evening. He did take Eliquis at 8 PM. He also had scants amount of bloody mucus this morning at 630. He was able to
sip on a smoothie made by his daughter from 9 to 11 AM. He reports ongoing leg edema for 3 weeks with episodic bleeding over the past 2 and half weeks and dark black stool yesterday after being constipated for 1 week. He states he had diagnostic
laparoscopic abdominal surgery on 09/18/2023 looking for any cancerous lesions
He is status post TNK on 09/23/2023 for acute CVA, nonischemic [place] and hyponatremia, he had echo showing echodensity and was placed on oral Eliquis along with Lasix 20 mg daily. He is currently being treated for esophageal cancer with chemotherapy.
He states he had EGD along with port placement and laparoscopic on 09/18/2023 at [facility].
Other PMH includes esophageal/gastric cancer on chemo, A-fib with bradycardia has refused pacemaker, hep C, hypothyroidism, chronic pain on chronic oral opiates.
Medical History
Past Medical History
Past Medical History: Reports Other
Additional Past Medical History:
TNK on 09/23/2023 for acute CVA,
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
Hepatitis C
Hypothyroidism
Paroxysmal Atrial Tachycardia / Bradycardia
Chronic Pain with Opioid Dependence
Past Surgical History: Reports Other
Additional Past Surgical History:
Right Rotator Cuff
Port placement 09/18/2023 you can
EGD 3 1, 09/18/2023 [facility]
Laparoscopic abdominal surgery 09/18/2023 [facility]
Social History
Tobacco: Former Smoker (20-year 1 pack a day quit 20 years ago)
Alcohol: Former (Used to drink daily stopped 20 years ago)
Drug: None
Personal: Single
Living: Alone
Employment: Retired
Family History
Family History: Other (Father alcohol abuse likely esophageal varices hemorrhage, mother complications of dementia)
Allergies / Home Medications
Allergies reflects when Allergies were last updated in [employer].
Home Medications with original date entered in [employer]
Allergy/Medication List:
Allergies
Allergy/AdvReac Type Severity Reaction Status Date / Time
shellfish derived Allergy Hives Verified 02/04/22 07:44
Home Medications
oxycodone 30 mg tablet,oral ONLY (not feeding tubes) 30 mg PO Q4HPRN PRN breakthrough pain 02/04/22
Fluorouracil Pump 1 dose IV Q2W Autoimmune Disorder 09/23/23
albuterol sulfate 90 mcg/actuation aerosol inhaler 2 puff inhalation Q4HPRN PRN WHEEZING/SOB 09/23/23
fentanyl 25 mcg/hr transdermal patch 25 mcg transdermal Q3D Pain 09/23/23
ondansetron HCl 4 mg tablet 4 mg PO Q6HPRN PRN NAUSEA 09/23/23
oxycodone myristate 36 mg capsule sprinkle extended release 12hr(DON'T CRUSH) (Xtampza ER) 36 mg PO Q8 Pain 09/23/23
prochlorperazine maleate 10 mg tablet 10 mg PO Q6HPRN PRN NAUSEA 09/23/23
sofosbuvir 400 mg-velpatasvir 100 mg-voxilaprevir 100 mg tablet (Vosevi) 1 tab PO DAILY@1500 HEPATITIS C 09/23/23
testosterone enanthate 200 mg/mL intramuscular oil 100 mg IM Q2W Hormonal Agent 09/23/23
thyroid (pork) 30 mg tablet ([place] Thyroid) 60 mg PO DAILY@0700 Thyroid 09/23/23
apixaban 5 mg tablet (Eliquis) 5 mg PO BID #60 tabs 09/25/23
atorvastatin 40 mg tablet 40 mg PO QPM 30 days #30 tabs 09/25/23
furosemide 20 mg tablet (Lasix) 20 mg PO DAILY #30 tabs 09/25/23
bisacodyl 5 mg tablet 5 mg PO DAILYPRN PRN constipation 09/26/23
docusate sodium 100 mg capsule (Colace) 100 mg PO DAILY 09/26/23
Review of Systems
-
History Source: Patient and Family (Daughter at bedside)
A 12 point ROS was completed and negative except as noted: Yes
Constitutional: Reports Fatigue; Denies Chills
EENT: Denies Sore Throat or Runny Nose
Respiratory: Reports Cough and Hemoptysis; Denies Trouble Breathing
Cardiac: Denies Chest Pain, Diaphoresis, Palpitations or Syncope
Abdomen/GI: Reports Abdominal Pain (Chronic ongoing), Nausea, Vomiting and Black Stools (Yesterday evening 09/25/2019 24 x 1); Denies Diarrhea, Constipated or Bloody Stools
: Denies Dysuria, Frequency, Flank Pain, Incontinence, Difficulty Voiding or Urgency
Musculoskeletal: Reports Edema (Bilateral lower legs +3); Denies Joint Pain
Skin: Denies Itching or Rash
Neurological: Reports Weakness; Denies Dizzy or Headache
Endocrine: Reports No Symptoms
Hematologic/Lymphatic: Reports No Symptoms
Psych: Reports Calm
Physical Exam
Vital Signs
Vital Signs
Temp Pulse Resp BP Pulse Ox
97.6 F 74 16 122/94 100
09/26/23 11:36 09/26/23 11:36 09/26/23 11:36 09/26/23 11:36 09/26/23 11:36
Physical Exam
General: Comfortable and Conversant; No Fever or Chills
HEENT: NormoCephalic, PERRLA, No Ptosis and Other (Pale conjunctiva)
Respiratory: Clear; No Wheezes, Rales or Rhonchi
Cardiac: S1/S2, Regular Rhythm and Peripheral Edema (+3 bilateral lower legs); No Murmur, Rub or Gallop
Breast: Deferred by me
GI: Soft, Non Distended, Normal Bowel Sounds and Tender (Generalized around laparoscopic sites to laparoscopic sites left side abdomen and 1 mid lower suprapubic)
Rectal: Deferred by Provider
Genito-urinary: Deferred by me
Laboratory Results
-
09/26/23 12:29
09/26/23 12:29
Laboratory Results
Total Bilirubin 0.7 mg/dl (0.2-1.3) 09/26/23 12:29
AST 34 U/L (17-59) 09/26/23 12:29
ALT 14 U/L (0-50) 09/26/23 12:29
Alkaline Phosphatase 45 U/L (38-126) 09/26/23 12:29
Impression/Plan
-
Impression/plan:
Admit to IMU
#Upper GI bleed on Eliquis
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
Eliquis recently started on 09/25/2023 along with aspirin and Plavix
Hgb 7.8 was 9.3 on 09/25/2023 2 days ago
BP stable 122/94
-Blood consent obtained in ER
Transfuse 1 unit PRBC
-clears per GI
-IV PPI drip
-Consult GI
-Follow CBC, BMP
#Esophageal cancer on current chemotherapy
-Follows with Dr. Mccullough at [facility]
#Hx left upper chest wall port placed for 1 at [facility]
#Started chemo for 4 infusion at Center then 24-hour pump( Florouracil)
On testosterone IM every 2 weeks
#Recent constipation x 1 week
-Had bowel movement yesterday 09/25/2019 4 black in color per daughter
#Recent CVA 09/23/2023
Multiple small acute ischemic infarcts throughout the brain
-Was started on DAPT with aspirin and Plavix while inpatient only but then converted to oral Eliquis
-Hold Eliquis given 2 g drop hemoglobin past 2 days
#Hx paroxysmal atrial tachycardia/tachybradycardia
Has refused permanent pacemaker in the past
#Recent hyponatremia
Current NA 127
Nephrology was consulted recent admit
- continue fluid restriction
-Lasix 20 mg daily(will make Lasix IV 20 mg daily)
#Hep C
-HOLD Voscevi while on IV PPI
#Chronic pain with chronic opiates
-Continue fentanyl patch 25 mcg due this evening 09/26/2023
Hold p.o. meds Xtampza, oxycodone 30 mg every 4 hours as needed
-IV Dilaudid as needed breakthrough pain
#Coronary angiography February 04, 2022�normal coronary arteries
#Hypothyroidism
Continue [place] Thyroid 60 mg daily
DVT prophylaxis
SCDs
Full code
--- NOTE | 2023-09-26 14:56 | CON.GI ---
Consultation
-
Date/Time Consultation Requested: 09/26/2023
Date/Time Consultation Performed: 09/26/2023
Requesting Provider: Emergency room
Performing Provider: Dr. Arciniega
Reason for Consultation: Hematemesis
Medical History
Chief Complaint / HPI
Chief Complaint: Hematemesis
History of Present Illness:
Mike is a 63-year-old male with history of esophageal versus proximal gastric cancer on chemotherapy with first and last dose last Monday, atrial fibrillation with bradycardia who is refused pacemaker, hepatitis C, chronic pain on opiates who
was just discharged yesterday and back because of coughing up blood. Apparently he had an embolic stroke received TNK without any complication and therefore was started on Eliquis. His GI care is at the [facility] with Dr. Chen
and oncology with dr. Mccullough. initially he had a colonoscopy that was positive Cologuard in June then an endoscopy that showed a large partially obstructing mass in the distal esophagus into the fundus. Underwent laparoscopy for staging just
last week on Monday. Currently undergoing chemotherapy and hopeful downstaging for possible resection in the future. When he was in the emergency room on 09/22 he received TNK prior embolic stroke. At that time he was doing well and had no signs
of bleeding. No dysphagia. He was started on Eliquis and was discharged yesterday.
According to the endoscopy report done in August 2023 [facility] the fungating mass was oozing blood at that time. He had a more recent endoscopy on 09/19/2023. I do not have that report.
He comes back after complaining of coughing up mixed blood with mucus and some episodes of coffee-ground emesis with tiny clots last evening. He denies retching or vomiting blood. Last Eliquis dose was 8 PM last night. Patient states he had dark
black stool yesterday after being constipated for a week. His last endoscopy was on 09/18/2023 at [facility]. Denies any dysphagia, nausea. He is very concerned about weight loss. His is at bedside who gives much of this
history.
In the emergency room his hemoglobin is 7.8, yesterday on discharge was 9.3, platelets 149, white count 2.9, BUN 32, creatinine 0.6, sodium 127 down from 129. Normal LFTs. Vitals BP is 109/66 with a pulse of 66, O2 saturation is 99% on room air
Past Medical History
Past Medical History: Other ((Acute CVA Status post tenecteplase 09/23/2023 , nonischemic CT, acute on chronic hyponatremia, GE junction malignancy, Hepatitis C Hypothyroidism Paroxysmal Atrial Tachycardia / Bradycardia Chronic Pain with Opioid
Dependence ))
Past Surgical History: Orthopedic
Social History
Tobacco: Former Smoker
Alcohol: Former
Personal:
Living: With Family
Family History
Family History: Reviewed & Not Pertinent
Allergies / Home Medications
Allergy/AdvReac Type Severity Reaction Status Date / Time
shellfish derived Allergy Hives Verified 02/04/22 07:44
�Medication �Instructions �Recorded
oxycodone 30 mg tablet,oral ONLY 30 mg PO Q4HPRN PRN breakthrough 02/04/22
(not feeding tubes) pain
Fluorouracil Pump 1 dose IV Q2W Autoimmune Disorder 09/23/23
albuterol sulfate 90 mcg/actuation 2 puff inhalation Q4HPRN PRN 09/23/23
aerosol inhaler WHEEZING/SOB
fentanyl 25 mcg/hr transdermal 25 mcg transdermal Q3D Pain 09/23/23
patch
ondansetron HCl 4 mg tablet 4 mg PO Q6HPRN PRN NAUSEA 09/23/23
oxycodone myristate 36 mg capsule 36 mg PO Q8 Pain 09/23/23
sprinkle extended release
12hr(DON'T CRUSH) (Xtampza ER)
prochlorperazine maleate 10 mg 10 mg PO Q6HPRN PRN NAUSEA 09/23/23
tablet
sofosbuvir 400 mg-velpatasvir 100 1 tab PO DAILY@1500 HEPATITIS C 09/23/23
mg-voxilaprevir 100 mg tablet
(Vosevi)
testosterone enanthate 200 mg/mL 100 mg IM Q2W Hormonal Agent 09/23/23
intramuscular oil
thyroid (pork) 30 mg tablet 60 mg PO DAILY@0700 Thyroid 09/23/23
([place] Thyroid)
apixaban 5 mg tablet (Eliquis) 5 mg PO BID #60 tabs 09/25/23
atorvastatin 40 mg tablet 40 mg PO QPM 30 days #30 tabs 09/25/23
furosemide 20 mg tablet (Lasix) 20 mg PO DAILY #30 tabs 09/25/23
bisacodyl 5 mg tablet 5 mg PO DAILYPRN PRN constipation 09/26/23
docusate sodium 100 mg capsule 100 mg PO DAILY 09/26/23
(Colace)
Review of Systems
-
History Source: Patient and Family
Constitutional: Reports No Symptoms
Respiratory: Reports No Symptoms
Cardiac: Reports No Symptoms
Abdomen/GI: Reports No Symptoms
Skin: Reports No Symptoms
Vital Signs
Temp Pulse Resp BP Pulse Ox
97.8 F 66 16 109/66 99
09/26/23 14:50 09/26/23 14:50 09/26/23 14:50 09/26/23 14:50 09/26/23 14:31
Physical Exam
Exam
General: No Apparent Distress
HEENT: Anicteric
Cardiac: S1/S2
GI: Soft and Non Tender
Neuro: AO x 3
Psych: Calm
Results
WBC 2.9 10^3/uL (4.8-10.8) L 09/26/23 12:29
Hgb 7.8 g/dL (13.0-18.0) L 09/26/23 12:29
Hct 23.4 % (39.0-52.0) L 09/26/23 12:29
MCV 85.7 fL (80.0-94.0) 09/26/23 12:
Plt Count 149 10^3/uL (130-400) 09/26/23 12:
Absolute Neuts (auto) 2.3 10^3/uL (1.4-6.5) 09/26/23 12:
Sodium 127 mmol/L (135-145) L 09/26/23 12:
Potassium 3.7 mmol/L (3.5-5.1) 09/26/23 12:
Chloride 92 mmol/L (98-107) L 09/26/23 12:
Carbon Dioxide 30 mmol/L (22-30) 09/26/23 12:
BUN 32 mg/dl (9-20) H 09/26/23 12:
Creatinine 0.6 mg/dL (0.7-1.3) L 09/26/23 12:
Calcium 8.0 mg/dl (8.4-10.2) L 09/26/23 12:
Total Bilirubin 0.7 mg/dl (0.2-1.3) 09/26/23 12:
AST 34 U/L (17-59) 09/26/23 12:
ALT 14 U/L (0-50) 09/26/23 12:
Alkaline Phosphatase 45 U/L (38-126) 09/26/23 12:
Diagnostic Image Results:
No abdominal imaging
Prior GI Procedures: None here at [place]
EGD:
Colonoscopy:
Assessment / Plan
-
Mike is a 63-year-old male with recently diagnosed gastric versus esophageal malignancy just started chemotherapy last week with known oozing mass who was just discharged after having an embolic stroke over the weekend when he received TNK then
started on Eliquis. At home states he was coughing up mucus with a significant amount of blood but denies retching. Now with a drop in hemoglobin from 9.3 down to 7.8 and is hemodynamically stable
# Bleeding -in the setting of Eliquis with an oozing gastric mass
-- Hold Eliquis
-- needs a multidisciplinary team to discuss anticoagulation in the setting of her recent embolic stroke as the patient has a known oozing gastric cardia mass prior to the Eliquis
-- The patient continues to bleed after the Eliquis is washed out would proceed to endoscopy
-- Need to get his endoscopy report from 09/19/23 which was done just recently and prior to starting blood thinners
--- If he bleeds significantly and does not respond, we could Hemospray the mass
--- I placed the patient on Glucerna because they are very concerned about weight loss
--- If his hemoglobin responds well to his transfusion could start diet tomorrow
PPI drip for now--discussed with primary team
Total Time Spent with Patient (in minutes): 30
Data Reviewed
-
Old Records: Reviewed (Reviewed his [facility] records on their portal over the phone)
-
-
Thank you for consultation and allowing me to participate in the patient's care. Please call the behavioral consultant GI physician during the after hours with any questions or concerns.
[2023-09-26] MEDS: DILAUDID 1 MG IV (19:53)
[2023-09-26] MEDS: DURAGESIC 25 MCG/HR PATCH 1 PATCH TRANSDERM (21:11)
[2023-09-26] MEDS: OXYCONTIN (CONTROLLED RELEASE) 40 MG PO (21:29)
[2023-09-26] MEDS: LIPITOR 40 MG PO (21:29)
[2023-09-27] VITALS (9 sets, daily range): BP systolic 93–141; BP diastolic 56–101; PULSE 70–74; O2SAT 100
--- NOTE | 2023-09-27 02:07 | PTCARENOTE ---
Pt. arrived to unit from ED via stretcher. Pt. able to safely ambulate into room 318-2 on . Pt. AAOx3 and able to make needs known. Agitated upon arrival to unit. Protonix gtt running per orders. Oriented to unit. Call guan within reach. Plan
of care ongoing.
[2023-09-27] MEDS: ROXICODONE 30 MG PO ×2 (06:18→13:03)
[2023-09-27] MEDS: ARMOUR THYROID 60 MG PO (06:19)
--- NOTE | 2023-09-27 06:28 | PTCARENOTE ---
Pt. ambulated into hallway requesting pain medication. 30 mg oxycodone PRN dose pulled from [facility]. Notified patient that this RN would be administering the PRN 30 mg oxycodone dose. Pt. agitated that he was not receiving 60 mg. Tried confirming with
patient that his home dose is 30 mg PRN but patient getting more agitated and stated 'just give me what you have now. I don't know why I have to go through this.' This RN explained to patient that this RN would notify the [employer] of pt request. Pt stated
'do whatever you have to do.' AKBAR Gray notified. No new orders at this time. Plan of care ongoing.
[2023-09-27 06:37] LABS: % Basophils 1.7 % (0-2); % Eosinophils 1.7 % (0-6); % Immature Granulocytes 0.8 % (0-0.5); % Lymphocytes 29.7 % (20.5-51.1); % Monocytes 5.1 % (1.7-9.3); Absolute Lymphocytes 0.4 10^3/uL (1.2-3.4); Absolute Monocytes 0.1 10^3/uL (0.1-0.6); Hematocrit 23.6 % (39.0-52.0); Hemoglobin 7.9 g/dL (13.0-18.0); Mean Corp Hgb Conc. 33.5 g/dL (33.0-37.0); Mean Corpuscular Hgb 28.4 pg (27.0-31.0); Mean Corpuscular Volume 84.9 fL (80.0-94.0); Mean Platelet Volume 10.8 fL (7.4-10.4); Nucleated Red Blood Cells % 0 % (-); Platelet Count 130 10^3/uL (130-400); Red Blood Cell Count 2.78 10^6/uL (4.70-6.10); Red Cell Dist. Width 17.3 % (11.5-14.5)
[2023-09-27 06:48] LABS: White Blood Cell Count 1.2 10^3/uL (4.8-10.8)
[2023-09-27 07:02] LABS: ALT (SGPT) 13 U/L (0-50); AST (SGOT) 31 U/L (17-59); Albumin 2.8 g/dl (3.5-5.0); Alkaline Phosphatase 45 U/L (38-126); Blood Urea Nitrogen 21 mg/dl (9-20); Calcium 7.8 mg/dl (8.4-10.2); Carbon Dioxide 30 mmol/L (22-30); Chloride 94 mmol/L (98-107); Estimated Creatinine Clearance > 125 ml/min; Glucose 98 mg/dl (70-99); Potassium 3.4 mmol/L (3.5-5.1); Sodium 125 mmol/L (135-145); Total Bilirubin 0.7 mg/dl (0.2-1.3); Total Protein 5.5 g/dl (6.3-8.2); eGFR > 60.00
[2023-09-27 08:29] LABS: Absolute Neutrophils 0.7 10^3/uL (1.4-6.5)
--- NOTE | 2023-09-27 08:40 | W.PN.GI.CBS2 ---
Addendum entered and electronically signed by Christina Arciniega DO 09/27/23 14:26:
Patient seen and examined independently of [facility] [employer]. I agree with her note with my additions below
Patient has not had any bowel movements since admission. No further hemoptysis or hematemesis. Hemoglobin responded to the unit of blood and he is currently 8.4 after 1 unit. There is a drop in his white count to 1.2 which is consistent with his
recent chemotherapy. He denies any GI complaints.
Currently main issues are his anticoagulation in the setting of a recent embolic stroke as well as a and oozing gastric cardia mass which was oozing prior to the Eliquis and likely exacerbated by it
The hospitals has been in contact with [facility] oncology team.
I did request his endoscopy that was done on 09/19/2023. I only was able to review the one from August 2023 that did show an oozing esophageal gastric junction mass
Unfortunately, he is in a tough position. He needs anticoagulation because of the embolic stroke but he has an active oozing mass at the GE junction and therefore will likely bleed more if he is on Eliquis requiring transfusions.
Neurology is involved, nephrology is also consulted for his hyponatremia.
I highly doubt he will need any endoscopic procedures here. Therefore I did start him on a low residue diet with the Glucerna to help with caloric intake
Original Note:
Today's Communication / Plan
-
Repeat H&H. Continue PPI drip. Clear liquid diet pending repeat H&H. Monitor for bleeding signs
Assessment / Plan
-
The pt is a 63-year-old male with a PMH significant for Hep C, HLD, chronic constipation 2/2 opioids, who was recently diagnosed with ?gastric versus esophageal malignancy just started chemotherapy last week with known oozing mass, recent embolic
stroke diagnosed over the weekend when he received TNK then started on Eliquis. He presented to the ER with complaints of coughing/vomiting blood, with a drop in hemoglobin from 9.3 down to 7.8. He was started on PPI gtt and transfused with 1 unit
of PRBC. Eliquis was placed on hold.
Problem list/Recommendations:
# Bleeding -in the setting of Eliquis with an oozing gastric mass
-- Very complex case given the above history.
--Will repeat H&H at noon
--Continue clear liquid diet for now
--Monitor for signs of ongoing bleeding
--As Dr. Arciniega noted, he will need a multidisciplinary team to discuss anticoagulation in the setting of her recent embolic stroke as the patient has a known oozing gastric cardia mass prior to the Eliquis
--If he has signs of ongoing bleeding after the Eliquis is washed out would proceed to endoscopy
-- Await records from [place]
-- Clear liquids with supplement drinks
-- Continue PPI drip for now
Subjective
Subjective
Date of Service: September 27, 2023
The pt was seen and examined at the bedside. His hgb is stable but did not move much from his transfusion. He denies any further bleeding. He denies any sigificant pain.
Objective
Data Reviewed
Laboratory Data:
Laboratory Results
09/27/23 05:52
09/27/23 05:52
Laboratory Results
Total Bilirubin 0.7 mg/dl (0.2-1.3) 09/27/23 05:52
AST 31 U/L (17-59) 09/27/23 05:52
ALT 13 U/L (0-50) 09/27/23 05:52
Alkaline Phosphatase 45 U/L (38-126) 09/27/23 05:52
Vital Signs and I&O:
Vital Signs
Temp Pulse Resp BP Pulse Ox
98.4 F 67 16 123/82 97
09/27/23 07:36 09/27/23 07:36 09/27/23 07:36 09/27/23 07:36 09/27/23 07:36
I&O
09/26/23 09/27/23 09/28/23
06:59 06:59 06:59
Intake Total 250 / 250
Output Total 500 / 500
Balance -250 / -250
Physical Exam
Physical Exam
HEENT: Anicteric
Cardiology: S1 and S2 (regular rate/rhythm)
Pulmonary: Clear
GI: Soft, Non Distended, Non Tender and Normal Bowel Sounds
Neuro: Non Focal
--- NOTE | 2023-09-27 09:17 | PTOTSP ---
The patient is independent with functional mobility and denies concerns regarding mobility upon return home. No PT needs identified at this time, will sign off.
--- NOTE | 2023-09-27 09:33 | PTOTSP ---
pt currently requires supervision to no assistance to complete simple ADLs, functional transfers, ambulation. no overt deficits noted, no acute OT needs identified. will sign off.
[2023-09-27] MEDS: OXYCONTIN (CONTROLLED RELEASE) 40 MG PO ×3 (09:35→23:12)
[2023-09-27] MEDS: PROTONIX 100 IV ×2 (09:35→19:38)
[2023-09-27] MEDS: LASIX 20 MG IV (09:36)
--- NOTE | 2023-09-27 10:19 | W.PN.HOSP.TC ---
Today's Communication/Plan
-
Clear liquid diet. Monitoring sodium. Monitoring hemoglobin.
Assessment / Plan
Assessment / Plan
Physical exam:
General: Chronically ill
HEENT: Normocephalic, Atraumatic and Moist Mucous Membranes
Respiratory: Clear to Auscultation; Negative Wheezes, Rales or Rhonchi
Cardiac: Regular Rhythm and S1/S2
GI: Soft, Nontender and Nondistended
Musculoskeletal: No Clubbing, No Cyanosis and No Edema
Neuro: Awake, Alert and Oriented
Psych: Calm
A/P:
#Upper GI bleed on Eliquis
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
#Acute blood loss anemia
Eliquis recently started on 09/25/2023 along with aspirin and Plavix
Hgb 7.8 was 9.3 on 09/25/2023 2 days ago--> hemoglobin 7.9 this morning and on repeat 8.4
BP stable
Status post transfusion of blood
-clears per GI--> deferred diet to GI.
-IV PPI drip
-Consult GI appreciated
-I reached out to Dr. Antonio Salazar his outpatient relay repairer oncologist at [facility] and he is aware of pancytopenia most likely chemotherapy related. Hematology oncology aware of our plans of holding anticoagulation for now and probably restarting a
lower dose later down the road but high risk either way of increased risk of bleeding with restarting or increased risk of stroke if not. Hematology-oncology recommends neurology reevaluation and they also will restart chemotherapy as outpatient on
his scheduled appointment when reevaluate outpatient.
-I also reach out to his cardiology group (He sees Dr Gina Farrar OP)-I discussed with Dr. Lynch today and he also agrees there is no right answer and probably leaning towards holding anticoagulation until reevaluated as outpatient. He has a
web site specialist appointment this coming Monday.
-I also reach out to neurology today, Dr. Ching and he agrees with the postponing anticoagulation temporarily and probably restarting a lower dose. Will have neurology formally consulted today.
-Discussed with patient and at bedside multiple times today.
-His main concern is discomfort on his back due to the 'hospital bed' and he wants to go home but I explained he still not ready yet so is discussing with him-explained risk and benefits if he would sign AGAINST MEDICAL ADVICE.
#Recent hyponatremia--> worsening today
Current NA 125--> will repeat sodium this morning and also requested nephrology consultation for further evaluation.
Nephrology was consulted recent admit.
- continue fluid restriction
-Lasix 20 mg daily(will make Lasix IV 20 mg daily)
#Neutropenia
Most likely chemotherapy related
ANC 0.7
Neutropenic precautions
Watch for any signs of fever
#Esophageal cancer on current chemotherapy
-Follows with Dr. Mccullough at [facility]
#Hx left upper chest wall port placed for 1 at [facility]
#Started chemo for 4 infusion at [facility] then 24-hour pump( Florouracil)
On testosterone IM every 2 weeks
#Hypokalemia
Replete and trend today
#Recent constipation x 1 week
-Had bowel movement yesterday 09/25/2019 4 black in color per daughter
#Recent CVA 09/23/2023
Multiple small acute ischemic infarcts throughout the brain
-Was started on DAPT with aspirin and Plavix while inpatient only but then converted to oral Eliquis
-Hold Eliquis given 2 g drop hemoglobin past 2 days
#Hx paroxysmal atrial tachycardia/tachybradycardia
Has refused permanent pacemaker in the past
#Hep C
-HOLD Voscevi while on IV PPI
#Chronic pain with chronic opiates
-Continue fentanyl patch 25 mcg due this evening 09/26/2023
Hold p.o. meds Xtampza, oxycodone 30 mg every 4 hours as needed
-IV Dilaudid as needed breakthrough pain
#Coronary angiography February 04, 2022�normal coronary arteries
#Hypothyroidism
Continue [place] Thyroid 60 mg daily
DVT prophylaxis
SCDs
Full code
Total time spent on today's encounter was 52 minutes which included time spent in counseling the patient/family regarding diagnosis and treatment plan as listed above, goals of care, and symptom management. Case was discussed with nursing staff,
specialists, and care coordinators/case management. All labs and imaging personally reviewed by me. Remainder the time spent in detailed review of previous records, lab data, imaging, and other medical provider documentation.
Anticipated Discharge: 24 - 48 hours
Subjective/Interval History
-
Date of Service: September 27, 2023
Patient no further episodes of hematemesis or hemoptysis. No melena. No epistaxis. His main concern is discomfort on his back due to the 'hospital bed' and he wants to go home but I explained he still not ready yet so is discussing with
him-explained risk and benefits if he would sign AGAINST MEDICAL ADVICE since he is considering.
Objective Data
-
Labs:
Laboratory Results
09/27/23 09/27/23
05:52 10:18
WBC 1.2 L*
Hgb 7.9 L
Hct 23.6 L
Plt Count 130
Sodium 125 L Pending
Potassium 3.4 L Pending
Chloride 94 L Pending
Carbon Dioxide 30 Pending
BUN 21 H Pending
Creatinine 0.6 L Pending
Glucose 98 Pending
Calcium 7.8 L Pending
Total Bilirubin 0.7
AST 31
ALT 13
Alkaline Phosphatase 45
Vital Signs:
Vital Signs
Temp Pulse Resp BP Pulse Ox
98.4 F 67 16 123/82 97
09/27/23 07:36 09/27/23 07:36 09/27/23 07:36 09/27/23 07:36 09/27/23 07:36
I&O
09/26/23 09/27/23 09/28/23
06:59 06:59 06:59
Intake Total 250 / 250
Output Total 500 / 500
Balance -250 / -250
Review of Systems
-
All other systems: Reviewed and negative
[2023-09-27 11:10] LABS: Blood Urea Nitrogen 22 mg/dl (9-20); Calcium 7.9 mg/dl (8.4-10.2); Carbon Dioxide 29 mmol/L (22-30); Chloride 92 mmol/L (98-107); Estimated Creatinine Clearance > 125 ml/min; Glucose 113 mg/dl (70-99); Potassium 3.5 mmol/L (3.5-5.1); Sodium 125 mmol/L (135-145); eGFR > 60.00
--- NOTE | 2023-09-27 11:29 | W.CON.NEPH ---
Consultation
-
Date/Time Consultation Requested: 09/27/23 0939
Date/Time Consultation Performed: 09/27/23 1130
Requesting Provider: Yohan Godfrey
Performing Provider: Latasha Beckford
Reason for Consultation: Hyponatremia
Medical History
-
Chief Complaint: GIB
History of Present Illness:
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
cancer just started chemo on last , was admitted on 09/22 with CVA s/p TNK, echo showed echodensity and started on Eliquis. During this admit nephro saw him for acute on chr hyponatremia for which he required 3% saline and lasix-continued even
at d/c on 09/24. He now returned 09/25 for with hematemesis. His hb down to 7.8 form 9.3 s/p 1 unit PRBC on 09/25. sodium last d/c was 129 but decreasing to 125 again today hence nephrology consulted.No abd pain no n/v. No dysuria. Pain fair control with
narcotics.He continues to have LE edema. No CP or sob. Reports he is trying to complaint with fluid restriction.
Past Medical History
Esophageal/Gastric Cancer
Hepatitis C
Hypothyroidism
Paroxysmal Atrial Tachycardia / Bradycardia
Chronic Pain with Opioid Dependence
Chr hyponatremia
recent CVA embolic 09/23/23
Past Surgical History: Other (Right Rotator Cuff Port placement 09/18/2023 you can EGD 3 1, [facility] . [place])
Social History
Tobacco: Former Smoker (20-year 1 pack a day quit 20 years ago)
Alcohol: Former (20yrs ago)
Drug: None
Living: With Family
Family History
Family History: Not Pertinent
Allergies / Home Medications
Allergy/AdvReac Type Severity Reaction Status Date / Time
shellfish derived Allergy Hives Verified 02/04/22 07:44
�Medication �Instructions �Recorded �Confirmed �Type
oxycodone 30 mg tablet,oral ONLY 30 mg PO Q4HPRN PRN breakthrough 02/04/22 09/26/23 History
(not feeding tubes) pain
Fluorouracil Pump 1 dose IV Q2W Autoimmune Disorder 09/23/23 09/26/23 History
albuterol sulfate 90 mcg/actuation 2 puff inhalation Q4HPRN PRN 09/23/23 09/26/23 History
aerosol inhaler WHEEZING/SOB
fentanyl 25 mcg/hr transdermal 25 mcg transdermal Q3D Pain 09/23/23 09/26/23 History
patch
ondansetron HCl 4 mg tablet 4 mg PO Q6HPRN PRN NAUSEA 09/23/23 09/26/23 History
oxycodone myristate 36 mg capsule 36 mg PO Q8 Pain 09/23/23 09/26/23 History
sprinkle extended release
12hr(DON'T CRUSH) (Xtampza ER)
prochlorperazine maleate 10 mg 10 mg PO Q6HPRN PRN NAUSEA 09/23/23 09/26/23 History
tablet
sofosbuvir 400 mg-velpatasvir 100 1 tab PO DAILY@1500 HEPATITIS C 09/23/23 09/26/23 History
mg-voxilaprevir 100 mg tablet
(Vosevi)
testosterone enanthate 200 mg/mL 100 mg IM Q2W Hormonal Agent 09/23/23 09/26/23 History
intramuscular oil
thyroid (pork) 30 mg tablet 60 mg PO DAILY@0700 Thyroid 09/23/23 09/26/23 History
([place] Thyroid)
apixaban 5 mg tablet (Eliquis) 5 mg PO BID #60 tabs 09/25/23 09/26/23 Rx
atorvastatin 40 mg tablet 40 mg PO QPM 30 days #30 tabs 09/25/23 09/26/23 Rx
furosemide 20 mg tablet (Lasix) 20 mg PO DAILY #30 tabs 09/25/23 09/26/23 Rx
bisacodyl 5 mg tablet 5 mg PO DAILYPRN PRN constipation 09/26/23 09/26/23 History
docusate sodium 100 mg capsule 100 mg PO DAILY 09/26/23 09/26/23 History
(Colace)
Review of Systems
-
All complete 12 point ROS have been inquired and found negative other than stated in HPI
Physical Exam
Vital Signs
Vital Signs
Temp Pulse Resp BP Pulse Ox
98.4 F 67 16 123/82 97
09/27/23 07:36 09/27/23 07:36 09/27/23 07:36 09/27/23 07:36 09/27/23 07:36
Lab Results
WBC 1.2 10^3/uL (4.8-10.8) L* 09/27/23 05:52
RBC 2.78 10^6/uL (4.70-6.10) L 09/27/23 05:52
Plt Count 130 10^3/uL (130-400) 09/27/23 05:52
Sodium 125 mmol/L (135-145) L 09/27/23 10:30
Potassium 3.5 mmol/L (3.5-5.1) 09/27/23 10:30
Chloride 92 mmol/L (98-107) L 09/27/23 10:30
Carbon Dioxide 29 mmol/L (22-30) 09/27/23 10:30
BUN 22 mg/dl (9-20) H 09/27/23 10:30
Creatinine 0.6 mg/dL (0.7-1.3) L 09/27/23 10:30
eGFR > 60.00 09/27/23 10:30
Glucose 113 mg/dl (70-99) H 09/27/23 10:30
Calcium 7.9 mg/dl (8.4-10.2) L 09/27/23 10:30
Albumin 2.8 g/dl (3.5-5.0) L 09/27/23 05:52
Echo: 09/24
CONCLUSIONS
Normal left ventricular chamber size. Normal left ventricular wall thickness.
Normal regional wall motion. Mildly reduced left ventricular systolic function.
Left ventricular ejection fraction is 50-55%.
Echodensity noted in righ atrium under the tricuspid valve, suspicious for
possible thrombus.
No significant valvular disease.
Compared to previous echo October 2021, there appears to be an echodensity noted.
Physical Exam
General: Awake, Alert, Oriented, AOx3, No Distress and Nontoxic
HEENT: EOMI and Anicteric
Respiratory: Clear, Normal Excursion and Nonlabored Respirations
Cardiac: S1/S2 and Regular Rate/Rhythm
Abdomen: Soft, Nontender and Nondistended
Musculoskeletal: No Cyanosis and Edema (1-2+)
Skin: No Rash
Neuro: Nonfocal/Grossly Intact
Psych: Mood/afflect pleasant, Insight/judgement good and Appropriate
Assessment/Plan
-
IMP:
Upper GI bleed on Eliquis
Hx GI bleed/anemia related to esophageal gastric cancer
Acute blood loss anemia
Acute Stroke s/p tenecteplase 09/22
Acute on chr Hyponatremia
Esophageal/Gastric Cancer -Received first chemotherapy on September 20 at [place]
Paroxysmal Atrial Tachycardia / Bradycardia
Hepatitis C-Vosevi
Hypothyroidism
Chronic Pain with Opioid Dependence
Plan:
Recent d/c for CVA now returns with GIB
Acute on chr hyponatremia- Uosm 443, Nghia 25 on 09/22
suspect high ADH state from malignancy, chr pain
cont with FR, lasix 20mg daily,
will give 3% saline today to have positive sodium balance
TSH was normal
BP are soft, check cortisol in am
hb better post PRBC, GI and neuro follows, AC held
cytopenias from recent chemo
d/w pt and at bedside
Data Reviewed
-
Radiology: Report Reviewed by me
Labs: Labs Reviewed by me and Discussed with Patient
[2023-09-27 11:50] LABS: Hematocrit 24.5 % (39.0-52.0); Hemoglobin 8.4 g/dL (13.0-18.0)
[2023-09-27] MEDS: KCL 40 MEQ PO (12:41)
[2023-09-27] MEDS: SODIUM CHLORIDE 3% 250 IV (12:55)
--- NOTE | 2023-09-27 13:58 | CON.NEURO4 ---
Consultation - Neurology 4
-
CONSULTING PHYSICIAN: Katherine Ching
REFERRING PHYSICIAN: Hospitalist
DICTATED BY: Katherine Ching
DATE/TIME OF REQUEST: 09/27/23
DATE/TIME OF CONSULTATION: 09/27/23
Reason for Consultation: GI bleed, recent stroke
History of Present Illness:
63-year-old male with a past no history of esophageal cancer, hepatitis C, paroxysmal atrial tachycardia, recent embolic stroke with suspected right atrial cardiac thrombus presents to the hospital with episodes of coffee-ground emesis and also
describes some melena as well. He was discharged on apixaban for secondary stroke prevention given embolic stroke and concern for cardiac thrombus.
Patient describes some overall slowing and generalized weakness with no speech difficulty or unilateral weakness currently. Denies any abdominal pain,. No vomiting today. Continues to have chronic back pain. Has been seen by gastroenterology.
Past Medical History: Recent embolic ischemic stroke, suspected cardiac thrombus, hypothyroidism, esophageal cancer, hepatitis C, chronic pain on opiods
Surgical History: Right rotator cuff surgery, laparoscopic abdominal surgery, port placement, EGD
Family History: Non-contributory
Social History: Retired, lives on his own, has supportive daughter, former tobacco use 20 pack years, stopped alcohol 20 years ago
Allergies: Shellfish
Review of Symptoms:
Patient denies any fever, headache, chest pain, shortness of breath, GI or symptoms.
Physical Exam:
Elderly man appears older than stated age thin appearing no signs of overt distress no head or neck trauma oropharynx clear eyes are clear heart rate regular breathing unlabored abdomen soft nontender no lower extremity edema
Neurologic Examination:
The patient is awake, alert and oriented x 3. He is able to follow commands and answer questions appropriately. There is no aphasia or dysarthria. On cranial nerve assessment, pupils are 3 mm bilateral, round and reactive to light and
accommodation. Visual edwards are full. Extraocular movements are intact. Facial sensations are intact and bilaterally symmetrical, there is no facial asymmetry. Hearing is intact bilaterally to normal conversation volume. Tongue palate and uvula
are midline. Sternocleidomastoid strengths are full bilaterally. Motor strengths are 5/5 bilateral upper and lower extremities on medical research Langtry scale. There is no drift or involuntary movement noted. Deep tendon reflexes are 2+ bilateral
upper and lower extremities and Babinski is absent bilaterally. Sensations of pain, touch, temperature and vibration are intact and bilaterally symmetrical. There was no extinction noted on double simultaneous stimulation. Coordination is intact by
finger to nose bilaterally.
Impressions
1. Recent embolic stroke suspected due to left atrial cardiac thrombus seen on transthoracic echocardiogram. Thrombus most likely due to atrial tachycardia in addition to hypercoauability from malignancy
2. GI bleeding and history of esophageal cancer, at risk for further GI bleeding with antithrombotics for stroke prevention
Recommendations:
1. Hold all antithrombotics for today and monitor his blood counts as well as clinically for signs of GI bleed
2. Neurologic checks and NIH stroke scale
3. Minimize sedating medication
4. If after 1 to 2 days of clinical stability with stable blood counts and if clinically no further GI bleeding would need to consider restarting apixaban versus aspirin monotherapy.
5. Gastroenterology input appreciated
Discussed patient care with: Patient and hospitalist team
--- NOTE | 2023-09-27 14:26 | W.PN.UPDATE ---
Update Note
Progress Note Update
for billing purposes only
[2023-09-27] MEDS: LIPITOR 40 MG PO (16:46)
[2023-09-27 19:06] LABS: Sodium 125 mmol/L (135-145)
--- NOTE | 2023-09-27 21:50 | PTCARENOTE ---
@6;TT Dr Montero on 1849 sodium result = 125.
[2023-09-28 03:46] VITALS: BP 132/72
[2023-09-28] MEDS: ROXICODONE 30 MG PO ×3 (04:02→14:50)
[2023-09-28 05:13] VITALS: BMI 22.2
--- NOTE | 2023-09-28 05:39 | W.PN.UPDATE ---
Update Note
Progress Note Update
Abnormal rhythm noted by RN on the monitor. Strips showed some PAC's NSR. Will do an EKG, Labs due in AM. Patient asymptomatics, stable VS.
[2023-09-28 06:00] VITALS: BMI 22.2
[2023-09-28] MEDS: PROTONIX 100 IV (06:01)
[2023-09-28 06:03] LABS: % Basophils 3.1 % (0-2); % Lymphocytes 26.2 % (20.5-51.1); % Monocytes 7.7 % (1.7-9.3); Absolute Lymphocytes 0.2 10^3/uL (1.2-3.4); Absolute Monocytes 0.1 10^3/uL (0.1-0.6); Hematocrit 24.2 % (39.0-52.0); Hemoglobin 8.3 g/dL (13.0-18.0); Mean Corp Hgb Conc. 34.3 g/dL (33.0-37.0); Mean Corpuscular Hgb 29.3 pg (27.0-31.0); Mean Corpuscular Volume 85.5 fL (80.0-94.0); Mean Platelet Volume 10.2 fL (7.4-10.4); Nucleated Red Blood Cells % 0 % (-); Platelet Count 141 10^3/uL (130-400); Red Blood Cell Count 2.83 10^6/uL (4.70-6.10); Red Cell Dist. Width 17.6 % (11.5-14.5)
[2023-09-28] MEDS: ARMOUR THYROID 60 MG PO (06:03)
[2023-09-28 06:37] LABS: ALT (SGPT) 16 U/L (0-50); AST (SGOT) 30 U/L (17-59); Alkaline Phosphatase 47 U/L (38-126); Blood Urea Nitrogen 26 mg/dl (9-20); Calcium 7.7 mg/dl (8.4-10.2); Carbon Dioxide 26 mmol/L (22-30); Chloride 93 mmol/L (98-107); Estimated Creatinine Clearance 113 ml/min; Glucose 121 mg/dl (70-99); Magnesium 1.7 mg/dl (1.6-2.3); Potassium 3.8 mmol/L (3.5-5.1); Sodium 125 mmol/L (135-145); Total Bilirubin 0.7 mg/dl (0.2-1.3); Total Protein 5.6 g/dl (6.3-8.2); eGFR > 60.00
[2023-09-28 07:00] VITALS: BP 132/79
[2023-09-28 07:04] LABS: Cortisol, Random 38.7 ug/dl
[2023-09-28 07:39] LABS: Absolute Neutrophils 0.4 10^3/uL (1.4-6.5); White Blood Cell Count 0.7 10^3/uL (4.8-10.8)
--- NOTE | 2023-09-28 08:07 | W.PN.HOSP.TC ---
Addendum entered and electronically signed by Aly Gilman MD 09/28/23 16:54:
Yes, GI bleed is related to/associated with/due to/exacerbated by Eliquis.
Original Note:
Today's Communication/Plan
-
Bowel regimen. Chest x-ray and abdominal x-ray. Monitor sodium.
Assessment / Plan
Assessment / Plan
Physical exam:
General: Chronically ill
HEENT: Normocephalic, Atraumatic and Moist Mucous Membranes
Respiratory: Clear to Auscultation; Negative Wheezes, Rales or Rhonchi
Cardiac: Regular Rhythm and S1/S2
GI: Soft, Nontender and Nondistended
Musculoskeletal: No Clubbing, No Cyanosis and No Edema
Neuro: Awake, Alert and Oriented
Psych: Calm
A/P:
#Upper GI bleed on Eliquis
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
#Acute blood loss anemia
-Hemoglobin 8.3 today (hemoglobin 7.8 upon admission)
-Status post blood transfusion
-Change IV PPI drip to IV Protonix twice a day
-GI consult appreciated
-On low residue diet
-Continue to hold Eliquis
-PT OT eval
Prior to today:
-I reached out to Dr. Antonio Salazar on 09/26 his outpatient sheet metal mechanic oncologist at [facility] and he is aware of pancytopenia most likely chemotherapy related. Hematology oncology aware of our plans of holding anticoagulation for now and probably
restarting a lower dose later down the road but high risk either way of increased risk of bleeding with restarting or increased risk of stroke if not. Hematology-oncology recommends neurology reevaluation and they also will restart chemotherapy as
outpatient on his scheduled appointment when reevaluate outpatient.
-I also reach out to his cardiology group (He sees Dr Gina Farrar OP)-I discussed with Dr. Lynch on 09/26 and he also agrees there is no right answer and probably leaning towards holding anticoagulation until reevaluated as outpatient. He has a
calcine furnace tender appointment this coming Monday.
#Constipation in the setting of narcotic use and decreased mobility
-Aggressive bowel regimen
-If not effective above, would do enema
-Obtain x-ray of the abdomen
#Shortness of breath and peripheral edema
-Already on IV Lasix 20 mg daily
-Obtain BNP
-Obtain chest x-ray PA and lateral today
# Hyponatremia
Current NA 125
Nephrology consulted on 09/26 and appreciated input--> we will follow-up further recommendations
# Recent embolic stroke
-Neurology consulted on 09/26 and appreciated input
-Continue to hold anticoagulant and planning to restart at a lower dose when feasible
-Continue neurological checks per neurology recommendations
#Neutropenia
Most likely chemotherapy related
ANC 0.4
Neutropenic precautions
Watch for any signs of fever
Obtain blood cx
#Esophageal cancer on current chemotherapy
-Follows with Dr. Mccullough at [facility]
#Hx left upper chest wall port placed for 1 at [facility]
#Started chemo for 4 infusion at [facility] then 24-hour pump( Florouracil)
On testosterone IM every 2 weeks
#Hypokalemia
Replete and trend as needed
#Hx paroxysmal atrial tachycardia/tachybradycardia
Has refused permanent pacemaker in the past
#Hep C
-HOLD Voscevi while on IV PPI
#Chronic pain with chronic opiates
-Continue fentanyl patch 25 mcg due this evening 09/26/2023
Cont p.o. meds Xtampza, oxycodone 30 mg every 4 hours as needed
-IV Dilaudid as needed breakthrough pain
#Coronary angiography February 04, 2022�normal coronary arteries
#Hypothyroidism
Continue [place] Thyroid 60 mg daily
DVT prophylaxis
SCDs
Full code
Total time spent on today's encounter was 52 minutes which included time spent in counseling the patient/family regarding diagnosis and treatment plan as listed above, goals of care, and symptom management. Case was discussed with nursing staff,
specialists, and care coordinators/case management. All labs and imaging personally reviewed by me. Remainder the time spent in detailed review of previous records, lab data, imaging, and other medical provider documentation.
Anticipated Discharge: 24 - 48 hours
Subjective/Interval History
-
Date of Service: September 28, 2023
Patient complains of abdominal discomfort and nausea today. He has not had a bowel movement for several days. He also complains of some shortness of breath and also peripheral edema including legs and scrotum area. No chest pain. Afebrile. No
hematemesis or hemoptysis or epistaxis.
Objective Data
-
Labs:
Laboratory Results
09/28/23
05:42
WBC 0.7 L*
Hgb 8.3 L
Hct 24.2 L
Plt Count 141
Sodium 125 L
Potassium 3.8
Chloride 93 L
Carbon Dioxide 26
BUN 26 H
Creatinine 0.7
Glucose 121 H
Calcium 7.7 L
Total Bilirubin 0.7
AST 30
ALT 16
Alkaline Phosphatase 47
Vital Signs:
Vital Signs
Temp Pulse Resp BP Pulse Ox
97.7 F 75 20 132/72 98
09/28/23 03:46 09/28/23 03:46 09/28/23 03:46 09/28/23 03:46 09/28/23 03:46
I&O
09/27/23 09/28/23 09/29/23
06:59 06:59 06:59
Intake Total 250 / 250 360 / 360
Output Total 500 / 500
Balance -250 / -250 360 / 360
[2023-09-28] MEDS: OXYCONTIN (CONTROLLED RELEASE) 40 MG PO ×3 (09:34→23:02)
[2023-09-28] MEDS: LASIX 20 MG IV ×2 (09:34→17:32)
[2023-09-28] MEDS: SENOKOT-S 1 TABLET PO (10:25)
[2023-09-28 11:00] VITALS: BP 106/76
[2023-09-28] MEDS: MIRALAX 17 GRAMS PO (11:42)
[2023-09-28] MEDS: DULCOLAX 10 MG RECTAL (11:42)
[2023-09-28 11:55] LABS: NT-proBNP 183 pg/ml
--- NOTE | 2023-09-28 12:39 | PN.CDI ---
CDI
- -
CDI:
Physician Documentation Request
Admit Date: 09/26/23 14:29
Dear Doctor Kalina,
Patient admitted with upper GI bleeding.
Patient recently placed on Eliquis which as been held.
Please clarify if a relationship exist between these conditions:
Yes, GI bleeding is related to/associated with/due to /exacerbated by Eliquis.
No, GI bleeding is not related to/associated with/due to/exacerbated by Eliquis
Unable to determine
Use of terms such as suspected, likely, concern for, or probable (associated with a specific diagnosis that is being evaluated, monitored, or treated as if it exists) are acceptable and can be coded in the inpatient setting, when documented at the
time of discharge.
Thank you,
Anna Duenas RN, BSN
CDI Specialist
tiger text
Please use your independent medical judgment in providing your response.
--- NOTE | 2023-09-28 14:38 | W.PN.GI.CBS2 ---
Addendum entered and electronically signed by Christina Arciniega DO 09/28/23 16:22:
Patient seen and examined independently of TRANSITION COACH. I agree with her note with my additions below
Patient's hemoglobin has been stable. He did have a good bowel movement today and feels much better. His Eliquis has been on hold.
His hemoglobin is stable. He is becoming neutropenic from his chemotherapy last week.
I did review the endoscopy note from August 18, 2023 that was faxed from [facility]. We did not receive his September 18 procedure note likely because it was an operative report not an endoscopy.
Regardless both state and oozing fungating mass and therefore anticoagulation like Eliquis will likely results in transfusion requirements.
At least would use aspirin to help decrease stroke risk.
Patient is concerned about his hepatitis C medications and the PPI. However I told him the hepatitis C is not concerning right now. Right now we will need to worry about his gastric malignancy and bleeding. He needs a PPI twice daily upon
discharge.
He will follow-up with his multiple physicians at [facility] following here.
I see no need for GI intervention with endoscopy at this time. Was sent home on twice daily PPI
Monitor hemoglobin and if trends down give him a unit of blood. Please call us back if we can be of any assistance otherwise we will sign off.
Original Note:
Today's Communication / Plan
-
-- Very complex case given the above history
-- hbg stable 8.3 -- only required 1 transfusion during admission
--large stool today noted dark but feeling better
-also noted pancytopenia with neutropenia with recent chemo
--Monitor for signs of ongoing bleeding
-- for abdominal X ray now to assess for stool burden -- results pending
--appreciate hospitalist input has reviewed with Dr. Salazar(OP heme/onco at [facility]) await of anticoagulation hold and restart low dose at later date. he also reviewed with cardiology(known to Dr. Farrar but reviewed with Dr. Lynch due OP follow
up next week) about anticoagulation hold.
-consult also completed with neurology -- agree with anticoagulation hold but reassess restart of Apixaban vs ASA monotherapy
-would be OK to resume ASA 81mg or 325mg daily if needed from GI standpoint -- tiger text sent to review with hospitalist and neurology to restart pt is agreeable to start
--If signs of ongoing bleeding would proceed to endoscopy
--reviewed records from [facility] last EGD sent was from 08/17 as noted
-- low residue diet
-- Continue PPI BID
---cont miralax and senna BID with chronic constipation
Assessment / Plan
-
The pt is a 63-year-old male with a PMH significant for Hep C, HLD, chronic constipation 2/2 opioids, who was recently diagnosed with ?gastric versus esophageal malignancy just started chemotherapy last week with known oozing mass, recent embolic
stroke diagnosed over the weekend when he received TNK then started on Eliquis. He presented to the ER with complaints of coughing/vomiting blood, with a drop in hemoglobin from 9.3 down to 7.8. He was started on PPI gtt and transfused with 1 unit
of PRBC. Eliquis was placed on hold.
08/18/23- EGD partially obstructing likely malignant esophageal tumor lower 1/3 of esophagus, likely malignant gastric tumor at GE junction, mucosal change in duodenum
Problem list/Recommendations:
# Bleeding -in the setting of Eliquis with an oozing gastric mass
#gastric/esophageal CA
# embolic CVA
# pancytopenia/neutropenia
#hep C
#constipation
# pain control on chronic narcotics
# PAT, tachybrady
-- Very complex case given the above history
-- hbg stable 8.3 -- only required 1 transfusion during admission
--large stool today noted dark but feeling better
-also noted pancytopenia with neutropenia with recent chemo
--Monitor for signs of ongoing bleeding
-- for abdominal X ray now to assess for stool burden -- results pending
--appreciate hospitalist input has reviewed with Dr. Salazar(OP heme/onco at [facility]) await of anticoagulation hold and restart low dose at later date. he also reviewed with cardiology(known to Dr. Farrar but reviewed with Dr. Lynch due OP follow
up next week) about anticoagulation hold.
-consult also completed with neurology -- agree with anticoagulation hold but reassess restart of Apixaban vs ASA monotherapy
-would be OK to resume ASA 81mg or 325mg daily if needed from GI standpoint -- tiger text sent to review with hospitalist and neurology to restart pt is agreeable to start
--If signs of ongoing bleeding would proceed to endoscopy
--reviewed records from [facility] last EGD sent was from 08/17 as noted
-- low residue diet
-- Continue PPI BID
---cont miralax and senna BID with chronic constipation
Subjective
Subjective
Date of Service: September 28, 2023
low residue diet, no stools feeling better with passing stools
Objective
Data Reviewed
Laboratory Data:
Laboratory Results
09/28/23 05:42
09/28/23 05:42
Laboratory Results
Magnesium 1.7 mg/dl (1.6-2.3) 09/28/23 05:42
Total Bilirubin 0.7 mg/dl (0.2-1.3) 09/28/23 05:42
AST 30 U/L (17-59) 09/28/23 05:42
ALT 16 U/L (0-50) 09/28/23 05:42
Alkaline Phosphatase 47 U/L (38-126) 09/28/23 05:42
Vital Signs and I&O:
Vital Signs
Temp Pulse Resp BP Pulse Ox
97.9 F 116 14 106/76 99
09/28/23 11:00 09/28/23 11:00 09/28/23 11:00 09/28/23 11:00 09/28/23 11:00
I&O
09/27/23 09/28/23 09/29/23
06:59 06:59 06:59
Intake Total 250 / 250 360 / 360
Output Total 500 / 500
Balance -250 / -250 360 / 360
Physical Exam
Physical Exam
HEENT: Anicteric
Cardiology: Other (tachy)
Pulmonary: Other (decreased )
GI: Soft, Distended (mild ) and Non Tender
Extremities: No Edema
Neuro: Other (forgetful to some history )
[2023-09-28 15:00] VITALS: BP 114/64
--- NOTE | 2023-09-28 15:41 | CM ---
Spoke with pt at bedside
Pt reports he lives with his in a ranch style home
Independent, ambulates well, drives
DME - cane, rolling walker in home. No longer using
Denies past SNF/HH
Has ride at d/c
PCP - Noble Goodwin PA-C
Pharm - [facility]
CM will follow for d/c needs
Plan - anticipate home no needs
--- NOTE | 2023-09-28 16:22 | W.PN.UPDATE ---
Update Note
Progress Note Update
For billing purposes
[2023-09-28] MEDS: LIPITOR 40 MG PO (17:11)
[2023-09-28] MEDS: SODIUM CHLORIDE 3% 250 IV (17:32)
--- NOTE | 2023-09-28 18:45 | W.PN.NEPH.PH ---
Today's Communication / Plan
-
3% salien with lasix
avoiding samsca with recent CVA
Assessment/Plan
-
IMP:
Upper GI bleed on Eliquis
Hx GI bleed/anemia related to esophageal gastric cancer
Acute blood loss anemia
Acute Stroke s/p tenecteplase 09/22
Acute on chr Hyponatremia
Esophageal/Gastric Cancer -Received first chemotherapy on September 20 at [facility]
Paroxysmal Atrial Tachycardia / Bradycardia
Hepatitis C-Vosevi
Hypothyroidism
Chronic Pain with Opioid Dependence
Plan:
Recent d/c for CVA now returns with GIB on 09/25
Acute on chr hyponatremia- Uosm 443, Nghia 25 on 09/22
suspect high ADH state from malignancy, chr pain
cont with FR, lasix 20mg daily,
will give 3% saline again today with IV lasix to have positive sodium balance
TSH was normal
BP are soft, cortisol level ok
hb stable post PRBC, GI and neuro follows, AC held
cytopenias from recent chemo
d/w pt and at bedside
-
-
Date of Service: September 28, 2023
CC / HPI / ROS
-
Chief Complaint:
Hyponatremia
History of Present Illness:
sodium no change at 125
BP soft, hb stable 8.3
Review of Systems:
no cp or sob at rest
pain fair control
Labs
-
Labs:
WBC 0.7 10^3/uL (4.8-10.8) L* 09/28/23 05:42
RBC 2.83 10^6/uL (4.70-6.10) L 09/28/23 05:42
Hgb 8.3 g/dL (13.0-18.0) L 09/28/23 05:42
Hct 24.2 % (39.0-52.0) L 09/28/23 05:42
Plt Count 141 10^3/uL (130-400) 09/28/23 05:42
eGFR > 60.00 09/28/23 05:42
Lxw-X-Fpvuwygdzxc Pept 183 pg/ml 09/28/23 11:21
Albumin 3.0 g/dl (3.5-5.0) L 09/28/23 05:42
Physical Exam
-
Vital Signs:
Vital Signs
Temp Pulse Resp BP Pulse Ox
98.3 F 70 17 102/57 100
09/28/23 15:00 09/28/23 17:32 09/28/23 15:00 09/28/23 17:32 09/28/23 15:00
Cardiovascular:: Regular rate and rhythm
Respiratory:: Bilateral: CTA
Lung Excursion:: Normal
Abdomen:: Nontender and Soft
Extremity Edema:: +1: Bilateral:
Salazar Catheter: No
[2023-09-28 19:41] VITALS: BP 98/59
[2023-09-28 20:51] LABS: Blood Urea Nitrogen 28 mg/dl (9-20); Calcium 7.6 mg/dl (8.4-10.2); Carbon Dioxide 27 mmol/L (22-30); Chloride 91 mmol/L (98-107); Estimated Creatinine Clearance 113 ml/min; Glucose 149 mg/dl (70-99); Potassium 3.3 mmol/L (3.5-5.1); Sodium 124 mmol/L (135-145); eGFR > 60.00
[2023-09-28] MEDS: MIRALAX PO (23:01)
[2023-09-28] MEDS: SENOKOT PO (23:02)
[2023-09-28] MEDS: PROTONIX IV 40 MG IV (23:03)
[2023-09-28] MEDS: NSS (PRESERVATIVE FREE) 10 ML IV (23:04)
[2023-09-28] MEDS: FLUSH (NSS) 2 FLUSH IV (23:06)
[2023-09-28 23:54] VITALS: BP 110/59
--- NOTE | 2023-09-29 00:07 | PTCARENOTE ---
@7013;Instructed AKBAR Em,via TT, on BMP results.
[2023-09-29] MEDS: ROXICODONE 30 MG PO ×5 (01:47→22:01)
[2023-09-29 03:53] VITALS: BP 98/57
[2023-09-29] MEDS: ARMOUR THYROID 60 MG PO (05:21)
[2023-09-29] MEDS: DILAUDID 1 MG IV (05:29)
[2023-09-29 06:35] LABS: % Eosinophils 2.3 % (0-6); % Immature Granulocytes 2.3 % (0-0.5); % Monocytes 6.8 % (1.7-9.3); % Neutrophils 38.6 % (42.2-75.2); Absolute Lymphocytes 0.2 10^3/uL (1.2-3.4); Hematocrit 24.4 % (39.0-52.0); Hemoglobin 8.3 g/dL (13.0-18.0); Mean Corpuscular Hgb 28.7 pg (27.0-31.0); Mean Corpuscular Volume 84.4 fL (80.0-94.0); Mean Platelet Volume 10.7 fL (7.4-10.4); Nucleated Red Blood Cells % 0 % (-); Platelet Count 141 10^3/uL (130-400); Red Blood Cell Count 2.89 10^6/uL (4.70-6.10); Red Cell Dist. Width 17.2 % (11.5-14.5)
[2023-09-29 06:48] LABS: Absolute Neutrophils 0.2 10^3/uL (1.4-6.5); White Blood Cell Count 0.4 10^3/uL (4.8-10.8)
[2023-09-29 06:49] LABS: ALT (SGPT) 14 U/L (0-50); AST (SGOT) 25 U/L (17-59); Alkaline Phosphatase 50 U/L (38-126); Blood Urea Nitrogen 28 mg/dl (9-20); Carbon Dioxide 30 mmol/L (22-30); Chloride 90 mmol/L (98-107); Estimated Creatinine Clearance 99 ml/min; Glucose 138 mg/dl (70-99); Potassium 3.4 mmol/L (3.5-5.1); Sodium 128 mmol/L (135-145); Total Bilirubin 0.8 mg/dl (0.2-1.3); Total Protein 5.7 g/dl (6.3-8.2); eGFR > 60.00
[2023-09-29 07:00] VITALS: BP 110/62
--- NOTE | 2023-09-29 07:44 | W.PN.NEURO.1 ---
Today's Communication / Plan
-
-Had a conversation with the patient and his family about possible options for antithrombotics. I feel that a wmyzwf-wl-kaz-road option with either aspirin 81 mg daily or half dose apixaban 2.5 mg twice daily seem most reasonable. This is a
difficult decision and they understand the risks/benefits and ramifications of each choice. Discussed with him that no antithrombotic at all would have the lowest risk of bleeding from GI malignancy but would also have a high risk of ischemic
stroke that can be potentially devastating and disabled, and on the other hand the full dose apixaban will most likely result in further bleeding and hospitalizations. Discussed the options of aspirin 81 mg daily versus apixaban 2.5 mg twice daily
and what each of these would tentatively look like in terms of quality of life and the risks and benefits associated with each. Aspirin would not be as ideal as anticoagulation but would at least offer some small degree of reduced risk of ischemic
stroke, apixaban would most likely have a higher risk of GI bleeding than aspirin
-Patient is leaning towards choosing aspirin 81 mg daily, if this is his choice would recommend starting aspirin 81 mg daily tomorrow 09/29
-Can continue to address antithrombotics as time goes on
-Would continue neurologic checks and NIH scales
-Goal normotension
Neuro Assessment/Plan
Assessment
63-year-old male with a past no history of esophageal cancer, recent ischemic stroke of suspected embolic source given findings of probable left atrial thrombus seen on transthoracic echocardiogram presents to the hospital with GI bleed most likely
upper GI bleed given esophageal malignancy.
Patient in difficult position between risks of bleeding with GI malignancy and risk of stroke due to hypercoagulable state and probable cardiac thrombus.
Luckily he has little residual deficit from the recent ischemic stroke.
Subjective/Objective
Subjective Data
Date of Service: September 29, 2023
No acute events, had bowel movement yesterday with relief of abdominal discomfort, some black color to the stool, no hematemesis, denies headache or speech difficulty or memory issues
Objective Data
Vital Signs
Temp Pulse Resp BP Pulse Ox
97.8 F 73 20 98/57 97
09/29/23 03:53 09/29/23 03:53 09/29/23 03:53 09/29/23 03:53 09/29/23 03:53
Lab Results
09/29/23 06:12
09/29/23 06:12
Sodium 128 mmol/L (135-145) L 09/29/23 06:12
Potassium 3.4 mmol/L (3.5-5.1) L 09/29/23 06:12
BUN 28 mg/dl (9-20) H 09/29/23 06:12
Glucose 138 mg/dl (70-99) H 09/29/23 06:12
Calcium 8.0 mg/dl (8.4-10.2) L 09/29/23 06:12
Ojg-O-Xikvdgzyhsq Pept 183 pg/ml 09/28/23 11:21
Patient Allergies
shellfish derived Allergy (Verified 02/04/22 07:44)
Hives
LDL Level: <70, continue statin
Review of Systems
-
History Source: Patient
All other systems: Reviewed and negative
Constitutional: No Symptoms
EENT: No Symptoms Reported
Respiratory: No Symptoms
Cardiac: No Symptoms
Abdomen/GI: No Symptoms
Genitourinary: No Symptoms
Musculoskeletal: No Symptoms
Skin: No Symptoms
Neuro: No Symptoms
Endocrine: No Symptoms
Hematologic / Lymphatic: No Symptoms
Allergy / Immunology: No Symptoms
Physical Exam
-
General: Comfortable
Eyes: No Ptosis
HEENT: Normocephalic
Neck: No Bruits Bilaterally
Respiratory: Clear to Auscultation
Cardiac: Regular Rhythm
GI: Normal Bowel Sounds
Skin: Unremarkable
Extremities: No Clubbing
Psych: Unremarkable
Extended Neurological Exam
Mood & Affect: Mood Unremarkable and Affect Unremarkable
Attention Span & Concentration: Awake, Alert and Interactive
Memory: Unremarkable
Tremor: Hand Tremor Absent
Involuntary Movement: None
Speech: Quality Unremarkable and Quantity Unremarkable; Negative Expressive Aphasia, Receptive Aphasia or Dysarthric
Cranial Nerve II: Left Eye: Pupillary Reactivity Unremarkable, Pupillary Size Unremarkable and Visual Chilel Intact
Cranial Nerve II: Right Eye: Pupillary Reactivity Unremarkable, Pupillary Size Unremarkable and Visual Chilel Intact
Cranial Nerves III, IV, : Extraocular Movement: Extraocular Movement Full in all Directions
Cranial Nerve VII: Facial Symmetry: Normal Facial Symmetry
Muscle Strength, Overall: Full Throughout
Muscle Bulk & Tone: Bulk Unremarkable
Pronator Drift: No Drift in Upper Extremities
Deep Tendon Reflexes: Trace Throughout
Touch Sensation: Unremarkable
Coordination: Bhwwum-qttj-hcdafg Testing Unremarkable
Babinski Sign: Absent Bilaterally
Data Reviewed
-
CT Head: Report Reviewed and Image Reviewed
MRI Head: Report Reviewed and Image Reviewed
Labs: Report Reviewed
[2023-09-29] MEDS: PROTONIX IV 40 MG IV ×2 (08:10→21:03)
[2023-09-29] MEDS: NSS (PRESERVATIVE FREE) 10 ML IV ×2 (08:10→21:03)
[2023-09-29] MEDS: LASIX 20 MG IV (08:11)
[2023-09-29] MEDS: MIRALAX PO ×2 (08:17→21:02)
[2023-09-29] MEDS: SENOKOT PO ×2 (08:17→21:03)
[2023-09-29] MEDS: OXYCONTIN (CONTROLLED RELEASE) 40 MG PO ×3 (08:18→21:08)
--- NOTE | 2023-09-29 08:39 | W.PN.HOSP.TC ---
Today's Communication/Plan
-
Repeat blood cultures today.
Assessment / Plan
Assessment / Plan
Physical exam:
General: Chronically ill
HEENT: Normocephalic, Atraumatic and Moist Mucous Membranes
Respiratory: Clear to Auscultation; Negative Wheezes, Rales or Rhonchi
Cardiac: Regular Rhythm and S1/S2
GI: Soft, Nontender and Nondistended
Musculoskeletal: No Clubbing, No Cyanosis and No Edema
Neuro: Awake, Alert and Oriented
Psych: Calm
A/P:
#Upper GI bleed on Eliquis
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
#Acute blood loss anemia
-Hemoglobin 8.3 remains today (hemoglobin 7.8 upon admission)
-Status post blood transfusion
-Changed IV PPI drip to IV Protonix twice a day
-GI consult appreciated
-On low residue diet
-Continue to hold Eliquis
-PT OT eval
-Discussion with patient and family about the options of no antiplatelet/anticoagulant versus starting low-dose Eliquis or aspirin--> after discussions of pros and cons patient has decided to go with only aspirin. I am in agreement with his
decision based on the increased risk for complications of all options.
Prior to today:
-I reached out to Dr. Antonio Salazar on 09/26 his outpatient requirements manager oncologist at [facility] and he is aware of pancytopenia most likely chemotherapy related. Hematology oncology aware of our plans of holding anticoagulation for now and probably
restarting a lower dose later down the road but high risk either way of increased risk of bleeding with restarting or increased risk of stroke if not. Hematology-oncology recommends neurology reevaluation and they also will restart chemotherapy as
outpatient on his scheduled appointment when reevaluate outpatient.
-I also reach out to his cardiology group (He sees Dr Gina Farrar OP)-I discussed with Dr. Lynch on 09/26 and he also agrees there is no right answer and probably leaning towards holding anticoagulation until reevaluated as outpatient. He has a
cleaning matron appointment this coming Monday.
# Positive blood culture
-Unclear if contaminant or real pathogen
-Will request ID consult
-Will repeat blood cultures today
-Hold off on antibiotics
#Constipation in the setting of narcotic use and decreased mobility
-Continue aggressive bowel regimen
-Reviewed x-ray of the abdomen and some abnormalities but clinically improving.
#Shortness of breath and peripheral edema
-Already on IV Lasix 20 mg daily
-Obtained BNP and numbers are decent
-Obtained chest x-ray PA and lateral yesterday and no acute chest pathology.
# Hyponatremia
Current NA 125
Nephrology consulted on 09/26 and appreciated input--> we will follow-up further recommendations
# Recent embolic stroke
-Neurology consulted on 09/26 and appreciated input
-Continue to hold anticoagulant and planning to restart at a lower dose when feasible
-Continue neurological checks per neurology recommendations
#Neutropenia
Most likely chemotherapy related
ANC 0.2
Neutropenic precautions
Watch for any signs of fever
Obtained blood cx
#Esophageal cancer on current chemotherapy
-Follows with Dr. Mccullough at [facility]
#Hx left upper chest wall port placed for 1 at [facility]
#Started chemo for 4 infusion at [facility] then 24-hour pump( Florouracil)
On testosterone IM every 2 weeks
#Hypokalemia
Replete and trend as needed
#Hx paroxysmal atrial tachycardia/tachybradycardia
Has refused permanent pacemaker in the past
#Hep C
-HOLD Voscevi while on IV PPI
#Chronic pain with chronic opiates
-Continue fentanyl patch 25 mcg due this evening 09/26/2023
Cont p.o. meds Xtampza, oxycodone 30 mg every 4 hours as needed
-IV Dilaudid as needed breakthrough pain
#Coronary angiography February 04, 2022�normal coronary arteries
#Hypothyroidism
Continue [place] Thyroid 60 mg daily
DVT prophylaxis
SCDs
Full code
Total time spent on today's encounter was 52 minutes which included time spent in counseling the patient/family regarding diagnosis and treatment plan as listed above, goals of care, and symptom management. Case was discussed with nursing staff,
specialists, and care coordinators/case management. All labs and imaging personally reviewed by me. Remainder the time spent in detailed review of previous records, lab data, imaging, and other medical provider documentation.
Anticipated Discharge: 24 - 48 hours
Subjective/Interval History
-
Date of Service: September 29, 2023
Patient feels better today. He had bowel movements yesterday. Denies active bleeding. Afebrile
Objective Data
-
Labs:
Laboratory Results
09/28/23 09/29/23
20:32 06:12
WBC 0.4 L*
Hgb 8.3 L
Hct 24.4 L
Plt Count 141
Sodium 124 L 128 L
Potassium 3.3 L 3.4 L
Chloride 91 L 90 L
Carbon Dioxide 27 30
BUN 28 H 28 H
Creatinine 0.7 0.8
Glucose 149 H 138 H
Calcium 7.6 L 8.0 L
Total Bilirubin 0.8
AST 25
ALT 14
Alkaline Phosphatase 50
Vital Signs:
Vital Signs
Temp Pulse Resp BP Pulse Ox
97.7 F 71 17 110/62 96
09/29/23 07:00 09/29/23 07:00 09/29/23 07:00 09/29/23 07:00 09/29/23 07:00
I&O
09/28/23 09/29/23 09/30/23
06:59 06:59 06:59
Intake Total 360 / 360 750 / 750
Balance 360 / 360 750 / 750
[2023-09-29 11:00] VITALS: BP 117/76
[2023-09-29] MEDS: KCL 40 MEQ PO ×2 (11:21→13:33)
[2023-09-29] MEDS: MAG-TAB SR 84 MG PO ×2 (11:21→21:03)
--- NOTE | 2023-09-29 13:13 | W.PN.NEPH.PH ---
Today's Communication / Plan
-
- Na 128
- likely for d/c today per patient preference
Assessment/Plan
-
IMP:
Upper GI bleed on Eliquis
Hx GI bleed/anemia related to esophageal gastric cancer
Acute blood loss anemia
Acute Stroke s/p tenecteplase 09/22
Acute on chr Hyponatremia
Esophageal/Gastric Cancer -Received first chemotherapy on September 20 at [facility]
Paroxysmal Atrial Tachycardia / Bradycardia
Hepatitis C-Vosevi
Hypothyroidism
Chronic Pain with Opioid Dependence
Plan:
Recent d/c for CVA now returns with GIB on 09/25
Acute on chr hyponatremia- Uosm 443, Nghia 25 on 09/22. repeat urine studies pending
suspect high ADH state from malignancy, chr pain
cont with FR, lasix 20mg daily as an outpatient
Na up to 128 today
replete K as that will also assist in maintain Na
patient adamant to leave today
TSH was normal
BP are soft, cortisol level ok
hb stable post PRBC, GI and neuro follows, AC held
cytopenias from recent chemo
Labs on Monday. Follow up with [facility]
d/w patient and family member at bedside
-
-
Date of Service: September 29, 2023
CC / HPI / ROS
-
Chief Complaint:
Hyponatremia
History of Present Illness:
sodium increased to 128
BP soft, hb stable 8.3
Review of Systems:
no cp or sob at rest
pain fair control
Labs
-
Labs:
WBC 0.4 10^3/uL (4.8-10.8) L* 09/29/23 06:12
RBC 2.89 10^6/uL (4.70-6.10) L 09/29/23 06:12
Hgb 8.3 g/dL (13.0-18.0) L 09/29/23 06:12
Hct 24.4 % (39.0-52.0) L 09/29/23 06:12
Plt Count 141 10^3/uL (130-400) 09/29/23 06:12
Sodium 128 mmol/L (135-145) L 09/29/23 06:12
Potassium 3.4 mmol/L (3.5-5.1) L 09/29/23 06:12
Chloride 90 mmol/L (98-107) L 09/29/23 06:12
Carbon Dioxide 30 mmol/L (22-30) 09/29/23 06:12
BUN 28 mg/dl (9-20) H 09/29/23 06:12
Creatinine 0.8 mg/dL (0.7-1.3) 09/29/23 06:12
eGFR > 60.00 09/29/23 06:12
Glucose 138 mg/dl (70-99) H 09/29/23 06:12
Calcium 8.0 mg/dl (8.4-10.2) L 09/29/23 06:12
Keu-G-Wcawvcfqqdz Pept 183 pg/ml 09/28/23 11:21
Albumin 3.0 g/dl (3.5-5.0) L 09/29/23 06:12
Physical Exam
-
Vital Signs:
Vital Signs
Temp Pulse Resp BP Pulse Ox
97.1 F 97 17 117/76 99
09/29/23 11:00 09/29/23 11:00 09/29/23 11:00 09/29/23 11:00 09/29/23 11:00
Cardiovascular:: Regular rate and rhythm
Respiratory:: Bilateral: CTA
Lung Excursion:: Normal
Abdomen:: Nontender and Soft
Bowel Sounds:: Normal
Extremity Edema:: None: Bilateral:
Salzaar Catheter: No
--- NOTE | 2023-09-29 14:46 | CM ---
Case management following for d/c planning
Neutropenic
Had + blood culture - repeating
ID consult
Diuresing
PT - no needs
Plan - anticipate home no needs
[2023-09-29 15:00] VITALS: BP 104/72
[2023-09-29] MEDS: ROCEPHIN 2000 MG IV (15:05)
[2023-09-29] MEDS: STERILE WATER FOR INJECTION 20 ML IV (15:05)
--- NOTE | 2023-09-29 15:36 | CON.ID ---
Consultation
-
Date/Time Consultation Requested: 09/29/23 13:15
Date/Time Consultation Performed: 09/29/23 15:37
Requesting Provider: Dr Gilman
Performing Provider: Dr Gibbs
Reason for Consultation: positive blood culture eval
Chief Complaint / Past History
Chief Complaint
Hemoptysis/hematemesis on Eliquis
History of Present Illness
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 Laparosocpy done last week for staging.
Denies vomiting or retching blood, reports its coughing. Does report dark black stool after a week of constipation. No dysphagia or nausea on arrival. No abdominal pain. Since admission does report some dysphagia relieved with magic mouth wash
Since arrival here he has been afebrile, bp overall stable, wbc on arrival 2.9 now 0.4, hgb 8.3, plt 141, ANC on arrival 2.3 today 0.2, there was initially L shift, cr 0.8, na 128 today, t bili 0.8, ast 25, alt 14, alk phos 50, blood culture 1/2 on
arrival with 3 coli, 6 imaging studies done since arrival all reviewed and collectively they are notable for Severe chronic lung disease in the lung apices. Possible pulmonary nodules, multiple small ischemic infarcts, port in place, repeat blood
cultures are in progress - no growth to date
Past History
Additional Past Medical History:
TNK on 09/23/2023 for acute CVA,
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
Hepatitis C
Hypothyroidism
Paroxysmal Atrial Tachycardia / Bradycardia
Chronic Pain with Opioid Dependence
Additional Past Surgical History:
Right Rotator Cuff
Port placement 09/18/2023 you can
EGD 3 1, 09/18/2023 [facility]
Laparoscopic abdominal surgery 09/18/2023 [facility] [place]
Allergy History:
shellfish derived Allergy (Verified 02/04/22 07:44)
Hives
Medications Reviewed: Yes
Social History
Tobacco: Former Smoker
Alcohol: Former
Drug: None
Family History
Family History: Not Pertinent
Review of Systems
Review of Systems
General: Negative Fever or Chills
All systems: All other systems were reviewed and were negative
Vital Signs
Temp Pulse Resp BP Pulse Ox
97.1 F 97 17 117/76 99
09/29/23 11:00 09/29/23 11:00 09/29/23 11:00 09/29/23 11:00 09/29/23 11:00
Physical Exam
Physical Exam
Constitutional: No Acute Distress
Pharynx: Other (no visible oral ulcers or thrush)
Cardiovascular: Regular Rate and S1/S2; Negative Murmur or Rub
Pulmonary: Clear and Symmetric; Negative Wheezes, Rales or Rhonchi
Gastrointestinal: Soft, Non Tender, Non Distended and Normal Bowel Sounds
Skin: Warm and Dry; Negative Rash or Jaundice
Lab / Diagnostic Study Results
09/29/23 06:12
09/29/23 06:12
Abs Immat Gran (auto) 0.0 10^3/uL (0-0.05) 09/29/23 06:12
Absolute Neuts (auto) 0.2 10^3/uL (1.4-6.5) L* 09/29/23 06:12
Absolute Lymphs (auto) 0.2 10^3/uL (1.2-3.4) L 09/29/23 06:12
Absolute Monos (auto) 0.0 10^3/uL (0.1-0.6) L 09/29/23 06:12
Absolute Basos (auto) 0.0 10^3/uL (0-0.2) 09/29/23 06:12
Immature Gran % 2.3 % (0-0.5) H 09/29/23 06:12
Neutrophils % 38.6 % (42.2-75.2) L 09/29/23 06:12
Lymphocytes % 50.0 % (20.5-51.1) 09/29/23 06:12
Monocytes % 6.8 % (1.7-9.3) 09/29/23 06:12
Eosinophils % 2.3 % (0-6) 09/29/23 06:12
Basophils % 0.0 % (0-2) 09/29/23 06:12
Microbiology Results
Micro:
09/28/23 12:40 Blood Culture - Preliminary
Blood/Venous No Growth in 24 hours- Final report to follow
09/28/23 11:21 Blood Culture - Preliminary
Blood/Venous Escherichia coli
Gram Stain - Preliminary
09/29/23 09:32 Blood Culture - Pending
Blood/Venous
09/29/23 09:02 Blood Culture - Pending
Blood/Venous
Assessment / Plan
E coli bacteremia - likely translocation
Neurtropenia
Esophageal Cancer on Chemotherapy
- repeat blood cultures no growth to date
- likely from translocation given known mass and hemoptysis; neutropenia is concerning
- start ceftriaxone
- follow clinically
[2023-09-29] MEDS: LIPITOR 20 MG PO (17:39)
[2023-09-29] MEDS: NON-FORMULARY ITEM 1 UNIT PO (17:40)
[2023-09-29 19:00] VITALS: BP 99/60
[2023-09-29] MEDS: DURAGESIC 25 MCG/HR PATCH 1 PATCH TRANSDERM (21:04)
[2023-09-29 21:07] LABS: Osmolality Urine 773 mOsm/kg (300-900)
[2023-09-29 21:20] LABS: Urine Sodium 7 mmol/L (30-90)
[2023-09-29 23:00] VITALS: BP 96/64
[2023-09-30 03:00] VITALS: BP 111/64
[2023-09-30] MEDS: ROXICODONE 30 MG PO ×4 (04:05→20:37)
[2023-09-30 06:00] VITALS: BMI 20.8
[2023-09-30] MEDS: ARMOUR THYROID 60 MG PO (06:22)
[2023-09-30 07:21] VITALS: BP 126/83
[2023-09-30] MEDS: LASIX 20 MG PO (08:28)
[2023-09-30] MEDS: NSS (PRESERVATIVE FREE) 10 ML IV ×2 (08:28→20:34)
[2023-09-30] MEDS: MAG-TAB SR 84 MG PO ×2 (08:28→20:32)
[2023-09-30] MEDS: PROTONIX IV 40 MG IV ×2 (08:28→20:37)
[2023-09-30] MEDS: OXYCONTIN (CONTROLLED RELEASE) 40 MG PO ×3 (08:28→22:26)
[2023-09-30] MEDS: SENOKOT PO ×2 (08:32→20:32)
[2023-09-30] MEDS: MIRALAX PO ×2 (08:32→20:32)
--- NOTE | 2023-09-30 08:38 | W.PN.HOSP.TC ---
Today's Communication/Plan
-
IV antibiotics. Tbo-filgrastim.
Assessment / Plan
Assessment / Plan
Physical exam:
General: Chronically ill
HEENT: Normocephalic, Atraumatic and Moist Mucous Membranes
Respiratory: Clear to Auscultation; Negative Wheezes, Rales or Rhonchi
Cardiac: Regular Rhythm and S1/S2
GI: Soft, Nontender and Nondistended
Musculoskeletal: No Clubbing, No Cyanosis and No Edema
Neuro: Awake, Alert and Oriented
Psych: Calm
A/P:
#Upper GI bleed on Eliquis
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
#Acute blood loss anemia
-Hemoglobin 8.3 remains today (hemoglobin 7.8 upon admission)
-Status post blood transfusion
-Changed IV PPI drip to IV Protonix twice a day
-GI consult appreciated
-On low residue diet
-Continue to hold Eliquis
-PT OT eval
-Discussion with patient and family about the options of no antiplatelet/anticoagulant versus starting low-dose Eliquis or aspirin--> after discussions of pros and cons patient has decided to go with only aspirin. I am in agreement with his
decision based on the increased risk for complications of all options.
Prior to today:
-I reached out to Dr. Antonio Salazar on 09/26 his outpatient software sales manager oncologist at [place] and he is aware of pancytopenia most likely chemotherapy related. Hematology oncology aware of our plans of holding anticoagulation for now and probably
restarting a lower dose later down the road but high risk either way of increased risk of bleeding with restarting or increased risk of stroke if not. Hematology-oncology recommends neurology reevaluation and they also will restart chemotherapy as
outpatient on his scheduled appointment when reevaluate outpatient.
-I also reach out to his cardiology group (He sees Dr Gina Farrar OP)-I discussed with Dr. Lynch on 09/26 and he also agrees there is no right answer and probably leaning towards holding anticoagulation until reevaluated as outpatient. 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
# E. coli bacteremia (suspicion for translocation source)
-ID consulted
-Blood cultures repeated on 09/28 and still positive for E. coli.
-Started on IV Rocephin 2 g daily
#Constipation in the setting of narcotic use and decreased mobility
-Continue aggressive bowel regimen
-Reviewed x-ray of the abdomen and some abnormalities but clinically improving.
#Shortness of breath and peripheral edema
-Already on IV Lasix 20 mg daily but changed to oral now.
-Obtained BNP and numbers are decent
-Obtained chest x-ray PA and lateral and no acute chest pathology.
# Hyponatremia
Current NA 125
Nephrology consulted on 09/26 and appreciated input--> we will follow-up further recommendations
# Recent embolic stroke
-Neurology consulted on 09/26 and appreciated input
-Continue to hold anticoagulant and planning to restart at a lower dose when feasible
-Continue neurological checks per neurology recommendations
#Neutropenia
Most likely chemotherapy related
ANC 0.2
Neutropenic precautions
Watch for any signs of fever
Obtained blood cx
Hematology consulted---> hematology is going to start him on Granix today on 09/29 (480 mcg x 1)
#Esophageal cancer on current chemotherapy
-Follows with Dr. Mccullough at [facility]
#Hx left upper chest wall port placed for 1 at [facility]
#Started chemo for 4 infusion at Center then 24-hour pump( Florouracil)
On testosterone IM every 2 weeks
#Hypokalemia
Replete and trend as needed
#Hx paroxysmal atrial tachycardia/tachybradycardia
Has refused permanent pacemaker in the past
#Hep C
-HOLD Voscevi while on IV PPI
#Chronic pain with chronic opiates
-Continue fentanyl patch 25 mcg due this evening 09/26/2023
Cont p.o. meds Xtampza, oxycodone 30 mg every 4 hours as needed
-IV Dilaudid as needed breakthrough pain
#Coronary angiography February 04, 2022�normal coronary arteries
#Hypothyroidism
Continue Eugene Thyroid 60 mg daily
DVT prophylaxis
SCDs
Full code
Total time spent on today's encounter was 52 minutes which included time spent in counseling the patient/family regarding diagnosis and treatment plan as listed above, goals of care, and symptom management. Case was discussed with nursing staff,
specialists, and care coordinators/case management. All labs and imaging personally reviewed by me. Remainder the time spent in detailed review of previous records, lab data, imaging, and other medical provider documentation.
Anticipated Discharge: > 48 hours
Subjective/Interval History
-
Date of Service: September 30, 2023
Patient denies any new complaints today. No bleeding. No chest pain or shortness of breath. Afebrile
Objective Data
-
Labs:
Laboratory Results
09/30/23
08:29
WBC Pending
Hgb Pending
Hct Pending
Plt Count Pending
Sodium Pending
Potassium Pending
Chloride Pending
Carbon Dioxide Pending
BUN Pending
Creatinine Pending
Glucose Pending
Calcium Pending
Vital Signs:
Vital Signs
Temp Pulse Resp BP Pulse Ox
97.9 F 71 18 111/64 97
09/30/23 03:00 09/30/23 03:00 09/30/23 03:00 09/30/23 03:00 09/30/23 03:00
I&O
09/29/23 09/30/23 10/01/23
06:59 06:59 06:59
Intake Total 1410 / 1410 1060 / 1060
Output Total 325 / 325
Balance 1410 / 1410 735 / 735
[2023-09-30 08:49] LABS: % Lymphocytes 65.5 % (20.5-51.1); % Neutrophils 15.5 % (42.2-75.2); Absolute Lymphocytes 0.4 10^3/uL (1.2-3.4); Absolute Monocytes 0.1 10^3/uL (0.1-0.6); Hematocrit 24.6 % (39.0-52.0); Hemoglobin 8.2 g/dL (13.0-18.0); Mean Corp Hgb Conc. 33.3 g/dL (33.0-37.0); Mean Corpuscular Hgb 28.2 pg (27.0-31.0); Mean Corpuscular Volume 84.5 fL (80.0-94.0); Nucleated Red Blood Cells % 5.2 % (-); Red Blood Cell Count 2.91 10^6/uL (4.70-6.10); Red Cell Dist. Width 17.2 % (11.5-14.5)
[2023-09-30 09:10] LABS: White Blood Cell Count 0.6 10^3/uL (4.8-10.8)
[2023-09-30 10:25] LABS: Mean Platelet Volume 10.8 fL (7.4-10.4); Platelet Count 140 10^3/uL (130-400)
[2023-09-30 10:27] LABS: Absolute Neutrophils 0.1 10^3/uL (1.4-6.5)
[2023-09-30 10:49] LABS: Blood Urea Nitrogen 34 mg/dl (9-20); Calcium 8.3 mg/dl (8.4-10.2); Carbon Dioxide 29 mmol/L (22-30); Chloride 94 mmol/L (98-107); Estimated Creatinine Clearance 106 ml/min; Glucose 132 mg/dl (70-99); Potassium 3.8 mmol/L (3.5-5.1); Sodium 128 mmol/L (135-145); eGFR > 60.00
[2023-09-30] MEDS: GRANIX 480 MCG SC (12:22)
--- NOTE | 2023-09-30 13:42 | W.PN.NEPH.PH ---
Today's Communication / Plan
-
- sign off
Assessment/Plan
-
IMP:
Upper GI bleed on Eliquis
Hx GI bleed/anemia related to esophageal gastric cancer
Acute blood loss anemia
Acute Stroke s/p tenecteplase 09/22
Acute on chr Hyponatremia
Esophageal/Gastric Cancer -Received first chemotherapy on September 20 at [place]
Paroxysmal Atrial Tachycardia / Bradycardia
Hepatitis C-Vosevi
Hypothyroidism
Chronic Pain with Opioid Dependence
Plan:
Recent d/c for CVA now returns with GIB on 09/25
Acute on chr hyponatremia- Uosm 443, Nghia 25 on 09/22. repeat urine studies pending
suspect high ADH state from malignancy, chr pain
cont with FR, lasix 20mg daily as an outpatient, increase osm intake
Na stable at 128
patient hoping to leave today, defer to ID
TSH was normal
BP are soft, cortisol level ok
hb stable post PRBC, GI and neuro follows, AC held
cytopenias from recent chemo
Labs on Monday. Follow up with coty [facility]
Sign off
d/w patient and family member at bedside
-
-
Date of Service: September 30, 2023
CC / HPI / ROS
-
Chief Complaint:
Hyponatremia
History of Present Illness:
sodium stable to 128
BP soft, hb stable 8.3
Review of Systems:
no cp or sob at rest
pain fair control
Labs
-
Labs:
WBC 0.6 10^3/uL (4.8-10.8) L* 09/30/23 08:29
RBC 2.91 10^6/uL (4.70-6.10) L 09/30/23 08:29
Hgb 8.2 g/dL (13.0-18.0) L 09/30/23 08:29
Hct 24.6 % (39.0-52.0) L 09/30/23 08:29
Plt Count 140 10^3/uL (130-400) 09/30/23 08:29
Sodium 128 mmol/L (135-145) L 09/30/23 08:29
Potassium 3.8 mmol/L (3.5-5.1) 09/30/23 08:29
Chloride 94 mmol/L (98-107) L 09/30/23 08:29
Carbon Dioxide 29 mmol/L (22-30) 09/30/23 08:29
BUN 34 mg/dl (9-20) H 09/30/23 08:29
Creatinine 0.7 mg/dL (0.7-1.3) 09/30/23 08:29
eGFR > 60.00 09/30/23 08:29
Glucose 132 mg/dl (70-99) H 09/30/23 08:29
Calcium 8.3 mg/dl (8.4-10.2) L 09/30/23 08:29
Vss-D-Djnqirwpktt Pept 183 pg/ml 09/28/23 11:21
Albumin 3.0 g/dl (3.5-5.0) L 09/29/23 06:12
Physical Exam
-
Vital Signs:
Vital Signs
Temp Pulse Resp BP Pulse Ox
98.0 F 98 20 126/83 100
09/30/23 07:21 09/30/23 07:21 09/30/23 07:21 09/30/23 07:21 09/30/23 07:21
Cardiovascular:: Regular rate and rhythm
Respiratory:: Bilateral: Coarse
Lung Excursion:: Normal
Abdomen:: Nontender and Soft
Bowel Sounds:: Normal
Extremity Edema:: None: Bilateral:
Salazar Catheter: No
[2023-09-30] MEDS: STERILE WATER FOR INJECTION 20 ML IV (14:54)
[2023-09-30] MEDS: ROCEPHIN 2000 MG IV (14:54)
[2023-09-30 15:00] VITALS: BP 113/71
[2023-09-30] MEDS: LOW STRENGTH ASPIRIN 81 MG PO (16:19)
--- NOTE | 2023-09-30 16:58 | CON.ONC ---
Impression
Impression
GI bleed
pancytopenia
ecoli bacteremia
esophagogastric cancer - s/p FLOT x1
CVA
Plan
Plan
1. Esophagogastic cancer -
-locally advanced malignancy - receiving neoadjuvant chemo - s/p FLOT x1 - w/ potential plans for resection if adequate response obtained
-followed by Dr. Mccullough at [facility]
2. Pancytopenia - w/ ecoli bacteremia
-antibiotics as per ID
-start GCSF - monitor WBC
-transfusional support as needed for hemoglobin and plts
-follow CBC
Will continue to follow with you.
Patient History
History of Present Illness
63y/o male seen in consultation today regarding locally advanced esophagogastic cancer. He is currently being followed at [facility], under the care of Dr. Antonio Mccullough, receiving his 1st cycle of FLOT last week. He did not receive neulasta.
Following his 1st treatment, he was admitted to [facility] w/CVA and started on anticoagulation. He developed GI bleeding prompting this admission. His CBC now demonstrated cytopenias related to chemotherapy. He has also developed ecoli bacteremia
and is on broad spectrum abx.
Clinically, he is feeling better today. No SOB, chest pain, palpitations. He is tired. No abdominal pain. No fevers or chills.
Past-Medical/Surgical History
PMH:
esophagogastric cancer - followed at [facility] - Dr. Mccullough - s/p FLOT x1 - no GCSF
hepatitis C
hemochromatosis
Hypothyroidism
Paroxysmal Atrial Tachycardia / Bradycardia
Chronic Pain with Opioid Dependence
Chr hyponatremia
recent CVA embolic 09/23/23
PSH:
Right Rotator Cuff
Port placement 09/18/2023
EGD
[facility] Laparoscopic abdominal surgery 09/18/2023 . [place])
Social History
Tobacco: Former Smoker (20-year 1 pack a day quit 20 years ago)
Alcohol: Former (20yrs ago)
Drug: None
Living: With Family
Family History
Family History: Not Pertinent
Allergies: NKDA
Patient Medication
�Medication �Instructions �Recorded �Confirmed �Last Taken �Type
oxycodone 30 mg tablet,oral ONLY 30 mg PO Q4HPRN PRN breakthrough 02/04/22 09/26/23 09/26/23 11:30 History
(not feeding tubes) pain
Fluorouracil Pump 1 dose IV Q2W Autoimmune Disorder 09/23/23 09/26/23 09/22/23 History
albuterol sulfate 90 mcg/actuation 2 puff inhalation Q4HPRN PRN 09/23/23 09/26/23 1 Week Ago History
aerosol inhaler WHEEZING/SOB ~09/19/23
fentanyl 25 mcg/hr transdermal 25 mcg transdermal Q3D Pain 09/23/23 09/26/23 09/23/23 History
patch
ondansetron HCl 4 mg tablet 4 mg PO Q6HPRN PRN NAUSEA 09/23/23 09/26/23 Unknown History
oxycodone myristate 36 mg capsule 36 mg PO Q8 Pain 09/23/23 09/26/23 09/26/23 08:10 History
sprinkle extended release
12hr(DON'T CRUSH) (Xtampza ER)
prochlorperazine maleate 10 mg 10 mg PO Q6HPRN PRN NAUSEA 09/23/23 09/26/23 Unknown History
tablet
sofosbuvir 400 mg-velpatasvir 100 1 tab PO DAILY@1500 HEPATITIS C 09/23/23 09/26/23 09/25/23 16:00 History
mg-voxilaprevir 100 mg tablet
(Vosevi)
testosterone enanthate 200 mg/mL 100 mg IM Q2W Hormonal Agent 09/23/23 09/26/23 09/21/23 History
intramuscular oil
thyroid (pork) 30 mg tablet 60 mg PO DAILY@0700 Thyroid 09/23/23 09/26/23 09/26/23 History
(Mellen Thyroid)
apixaban 5 mg tablet (Eliquis) 5 mg PO BID #60 tabs 09/25/23 09/26/23 09/25/23 20:00 Rx
atorvastatin 40 mg tablet 40 mg PO QPM 30 days #30 tabs 09/25/23 09/26/23 09/25/23 Rx
furosemide 20 mg tablet (Lasix) 20 mg PO DAILY #30 tabs 09/25/23 09/26/23 Unknown Rx
bisacodyl 5 mg tablet 5 mg PO DAILYPRN PRN constipation 09/26/23 09/26/23 09/25/23 History
docusate sodium 100 mg capsule 100 mg PO DAILY 09/26/23 09/26/23 09/25/23 History
(Colace)
Active Medications
Generic Name Dose Route Start Last Admin
Trade Name Freq PRN Reason Stop Dose Admin
Albuterol 2 puff 09/26/23 20:04
Albuterol Hfa [90 Mcg/Dose] Inhaler INH
R Q4HPRN PRN
WHEEZING/SOB
Protocol
Aspirin 81 mg 09/30/23 16:00 09/30/23 16:19
Aspirin 81 Mg Chewable Tablet PO 10/28/23 15:59 81 mg
DAILY GEOR[place]IANA Administration
Atorvastatin Calcium 20 mg 09/29/23 18:00 09/29/23 17:39
Atorvastatin (Lipitor) 20 Mg Tablet PO 10/27/23 17:59 20 mg
QPM GE[place]NA Administration
Bisacodyl 10 mg 09/26/23 20:04 09/28/23 11:42
Bisacodyl 10 Mg Rectal Suppository RECTAL 10/24/23 20:03 10 mg
DAILYPRN PRN Administration
constipation
Ceftriaxone Sodium 2,000 mg 09/29/23 15:00 09/30/23 14:54
Ceftriaxone 2,000 Mg/20 Ml Vial IV 2,000 mg
Q24H [place]NA Administration
Fentanyl 1 patch 09/26/23 22:00 09/29/23 21:04
Fentanyl 25 Mcg/Hr Patch TRANSDERM 10/10/23 21:59 1 patch
Q72H [place] Administration
Furosemide 20 mg 09/30/23 08:00 09/30/23 08:28
Furosemide 20 Mg Tablet PO 10/28/23 07:59 20 mg
DAILY [place]NA Administration
Hydromorphone HCl 1 mg 09/26/23 19:31 09/29/23 05:29
Hydromorphone 0.5 Mg/0.5 Ml Syringe IV 10/10/23 19:30 1 mg
Q4HPRN PRN Administration
severe pain
Magnesium 84 mg 09/29/23 09:00 09/30/23 08:28
Magnesium Lactate 84 Mg Tablet PO 10/27/23 08:59 84 mg
BID GEOR[place]IANA Administration
Sofosbuvir- 0 unit 09/29/23 17:00 09/29/23 17:40
Velpatasvir- PO 10/27/23 16:59 1 unit
Voxilaprevir 400-100 DAILY@1700 GEOR[place]IANA Administration
-100mg Tablet [
Vosevi] - 1 Tablet
Po Daily@1700
Ondansetron HCl 4 mg 09/26/23 20:04
Ondansetron 4 Mg Tablet PO 10/24/23 20:03
Q6HPRN PRN
NAUSEA
Oxycodone HCl 30 mg 09/26/23 20:15 09/30/23 16:19
Oxycodone 15 Mg Regular Release Tablet PO 10/10/23 20:14 30 mg
Q4HPRN PRN Administration
breakthrough pain
Oxycodone HCl 40 mg 09/26/23 22:00 09/30/23 15:00
Oxycontin 40 Mg Controlled Release Tablet PO 10/10/23 21:59 40 mg
TID [place]NA Administration
Pantoprazole Sodium 40 mg 09/28/23 20:00 09/30/23 08:28
Pantoprazole Sodium 40 Mg/10 Ml Vial IV 10/26/23 19:59 40 mg
BID [place]NA Administration
Patch Removal 0 patch 09/26/23 22:00 09/29/23 21:12
Remove Fentanyl Patch REMOVE 10/10/23 21:59 1 patch
Q72H [place] Administration
Polyethylene Glycol 17 grams 09/28/23 12:00 09/30/23 08:32
Polyethylene Glycol Powder 17 Grams Packet PO 10/26/23 11:59 Not Given
BID GE[place]NA
Sennosides 8.6 mg 09/28/23 20:00 09/30/23 08:32
Sennosides (Senokot) 8.6 Mg Tablet PO 10/26/23 19:59 Not Given
BID GEOR[place]IANA
Sodium Chloride 0 flush 09/26/23 21:00 09/28/23 23:06
Sodium Chloride 0.9% (Flush) Syringe IV 10/24/23 20:59 2 flush
PER PROTOCOL GE[place]NA Administration
Sodium Chloride 10 ml 09/28/23 20:00 09/30/23 08:28
Sodium Chloride 0.9% (Preservative Free) 10 Ml Vial IV 10/26/23 19:59 10 ml
BID [place]NA Administration
Sterile Water 20 ml 09/29/23 15:00 09/30/23 14:54
Sterile Water For Injection 20 Ml Vial IV 10/27/23 14:59 20 ml
DAILY@1500 GEOR[place]IANA Administration
Thyroid 60 mg 09/27/23 07:00 09/30/23 06:22
Thyroid 30 Mg (0.5 Grain) Tablet PO 10/25/23 06:59 60 mg
DAILY@0700 GE[place]NA Administration
Review of Systems
-
A ROS was obtained w/ pertinent findings as per HPI.
Physical Exam
-
General: Well Developed and No Apparent Distress
Cardiology: Normal Sinus Rhythm
Pulmonary: Clear
GI: Soft
Extremities: No C/C/E
Labs
Lab Results
WBC 0.6 10^3/uL (4.8-10.8) L* 09/30/23
RBC 2.91 10^6/uL (4.70-6.10) L 09/30/23
Hgb 8.2 g/dL (13.0-18.0) L 09/30/23
Hct 24.6 % (39.0-52.0) L 09/30/23
MCV 84.5 fL (80.0-94.0) 09/30/23
MCH 28.2 pg (27.0-31.0) 09/30/23
MCHC 33.3 g/dL (33.0-37.0) 09/30/23
RDW 17.2 % (11.5-14.5) H 09/30/23
Plt Count 140 10^3/uL (130-400) 09/30/23
MPV 10.8 fL (7.4-10.4) H 09/30/23
Abs Immat Gran (auto) 0.0 10^3/uL (0-0.05) 09/30/23
Absolute Neuts (auto) 0.1 10^3/uL (1.4-6.5) L* 09/30/23
Absolute Lymphs (auto) 0.4 10^3/uL (1.2-3.4) L 09/30/23
Absolute Monos (auto) 0.1 10^3/uL (0.1-0.6) 09/30/23
Absolute Eos (auto) 0.0 10^3/uL (0-0.7) 09/30/23
Absolute Basos (auto) 0.0 10^3/uL (0-0.2) 09/30/23
Immature Gran % 0.0 % (0-0.5) 04/13/24 08:29
Neutrophils % 15.5 % (42.2-75.2) L 09/30/23 08:29
Lymphocytes % 65.5 % (20.5-51.1) H 09/30/23 08:29
Monocytes % 19.0 % (1.7-9.3) H 09/30/23 08:29
Eosinophils % 0.0 % (0-6) 09/30/23 08:29
Basophils % 0.0 % (0-2) 09/30/23 08:29
Creatinine 0.7 mg/dL (0.7-1.3) 09/30/23 08:29
Vital Signs
Vital Signs
Temp Pulse Resp BP Pulse Ox
98.0 F 98 20 126/83 100
09/30/23 07:21 09/30/23 07:21 09/30/23 07:21 09/30/23 07:21 09/30/23 07:21
--- NOTE | 2023-09-30 17:08 | W.PN.ID1 ---
Date of Service
Date of Service: September 30, 2023
Today's Communication
continue ceftriaxone
Assessment / Plan
E coli bacteremia - likely translocation
Neurtropenia
Esophageal Cancer on Chemotherapy
- repeat blood cultures also with E coli
- send another set now that on antibiotics
- likely from translocation given known mass and hemoptysis; neutropenia is concerning
- continue ceftriaxone
- follow clinically
Chief Complaint
-: Bacteremia
Subjective / Review of Systems
afebrile
bp stable
neutropenia ongoing
cr stable
blood cultures remain positive
Vital Signs / Physical Exam
Vital Signs
Vital Signs
Temp Pulse Resp BP Pulse Ox
98.0 F 98 20 126/83 100
09/30/23 07:21 09/30/23 07:21 09/30/23 07:21 09/30/23 07:21 09/30/23 07:21
Physical Exam
Constitutional: No Acute Distress
Cardiovascular: Regular Rate and S1/S2; Negative Murmur or Rub
Pulmonary: Clear and Symmetric; Negative Wheezes or Rales
Gastrointestinal: Soft, Non Tender, Non Distended and Normal Bowel Sounds
Skin: Warm and Dry; Negative Rash or Jaundice
Objective Data
Lab Data
Lab Results
09/30/23 08:29
09/30/23 08:29
Estimated Creat Clear 106 ml/min 09/30/23 08:29
Total Bilirubin 0.8 mg/dl (0.2-1.3) 09/29/23 06:12
AST 25 U/L (17-59) 09/29/23 06:12
ALT 14 U/L (0-50) 09/29/23 06:12
Alkaline Phosphatase 50 U/L (38-126) 09/29/23 06:12
Most recent labs reviewed.
Micro Results:
09/28/23 12:40 Blood Culture - Preliminary
Blood/Venous No Growth in 48 hours- Final report to follow
09/29/23 09:32 Blood Culture - Preliminary
Blood/Venous Escherichia coli
Gram Stain - Final
09/29/23 09:02 Blood Culture - Preliminary
Blood/Venous Escherichia coli
Gram Stain - Final
09/28/23 11:21 Blood Culture - Preliminary
Blood/Venous Escherichia coli
Gram Stain - Preliminary
[2023-09-30] MEDS: LIPITOR 20 MG PO (18:19)
[2023-09-30] MEDS: NON-FORMULARY ITEM 1 UNIT PO (18:19)
[2023-09-30 23:55] VITALS: BP 113/69
[2023-10-01] MEDS: ROXICODONE 30 MG PO ×5 (02:57→20:49)
[2023-10-01] MEDS: ARMOUR THYROID 60 MG PO (05:53)
[2023-10-01 06:00] VITALS: BMI 20.6
[2023-10-01 07:00] VITALS: BP 129/81
[2023-10-01] MEDS: OXYCONTIN (CONTROLLED RELEASE) 40 MG PO ×3 (07:47→22:21)
[2023-10-01] MEDS: MIRALAX PO ×2 (08:50→20:50)
[2023-10-01] MEDS: SENOKOT PO ×2 (08:50→20:50)
--- NOTE | 2023-10-01 08:51 | W.PN.HOSP.TC ---
Today's Communication/Plan
-
IV antibiotics.
Assessment / Plan
Assessment / Plan
Physical exam:
General: Chronically ill
HEENT: Normocephalic, Atraumatic and Moist Mucous Membranes
Respiratory: Clear to Auscultation; Negative Wheezes, Rales or Rhonchi
Cardiac: Regular Rhythm and S1/S2
GI: Soft, Nontender and Nondistended
Musculoskeletal: No Clubbing, No Cyanosis and No Edema
Neuro: Awake, Alert and Oriented
Psych: Calm
A/P:
#Upper GI bleed on Eliquis
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
#Acute blood loss anemia
-No further bleeding since admission
-Hemoglobin 7.5 today (hemoglobin 7.8 upon admission)
-Status post blood transfusion
-Changed IV PPI drip to IV Protonix twice a day
-GI consult appreciated
-On low residue diet
-Continue to hold Eliquis
-PT OT eval
-Discussion with patient and family about the options of no antiplatelet/anticoagulant versus starting low-dose Eliquis or aspirin--> after discussions of pros and cons patient has decided to go with only aspirin on 09/29. I am in agreement with his
decision based on the increased risk for complications of all options.
-Started on aspirin since yesterday and tolerated so far but needs to follow-up closely.
-Updated at bedside today on 09/30.
Prior to today:
-I reached out to Dr. Antonio Salazar on 09/26 his outpatient advertising executive oncologist at [place] and he is aware of pancytopenia most likely chemotherapy related. Hematology oncology aware of our plans of holding anticoagulation for now and probably
restarting a lower dose or antiplatelet later down the road but high risk either way of increased risk of bleeding with restarting or increased risk of stroke if not. Hematology-oncology recommends neurology reevaluation and they also will restart
chemotherapy as outpatient on his scheduled appointment when reevaluate outpatient.
-I also reach out to his cardiology group (He sees Dr Gina Farrar OP)-I discussed with Dr. Lynch on 09/26 and he also agrees there is no right answer and probably leaning towards holding anticoagulation until reevaluated as outpatient. He has a
instrument repair specialist appointment this coming Monday but most likely will need to be postponed.
# E. coli bacteremia (suspicion for translocation source)
-ID consult appreciated
-Blood cultures repeated on 09/28 and still positive for E. coli. Blood cultures repeated on 09/29 after antibiotics initiated and pending.
-Cont on IV Rocephin 2 g daily
#Constipation in the setting of narcotic use and decreased mobility
-Continue aggressive bowel regimen
-Reviewed x-ray of the abdomen and some abnormalities but clinically improving.
#Shortness of breath and peripheral edema
-Already on IV Lasix 20 mg daily but changed to oral.
-Obtained BNP and numbers are decent
-Obtained chest x-ray PA and lateral and no acute chest pathology.
# Hyponatremia
Current NA 127
Nephrology consulted on 09/26 and appreciated input
# Recent embolic stroke
-Neurology consulted on 09/26 and appreciated input
-Continue to hold anticoagulant
-Started on aspirin 81 mg daily
-Continue statin and lowered the dose due to med interactions.
-Continue neurological checks per neurology recommendations
#Neutropenia/ Pancytopenia
Most likely chemotherapy related
ANC 0.1
Neutropenic precautions
Watch for any signs of fever
Obtained blood cx
Hematology consulted---> hematology started him on G-CSF Granix on 09/29 (480 mcg x 1)
#Esophageal cancer on current chemotherapy
-Follows with Dr. Mccullough at [facility]
#Hx left upper chest wall port placed for 1 at [facility]
#Started chemo for 4 infusion at Center then 24-hour pump( Fluorouracil). S/P FLOT x1.
On testosterone IM every 2 weeks
#Hypokalemia
Replete and trend as needed
#hypomagnesemia
-stop oral mg since mg is up
#Hx paroxysmal atrial tachycardia/tachybradycardia
Has refused permanent pacemaker in the past
#Hep C
-Resume Voscevi
#Chronic pain with chronic opiates
-Continue fentanyl patch 25 mcg due this evening 09/26/2023
Cont p.o. meds Xtampza, oxycodone 30 mg every 4 hours as needed
-d/c IV Dilaudid since patient feels this could create more confusion and he just wants the oral pain medications.
-He wants to discuss with physician about his pain regimen if he stays here longer and possibly to reach out to his pain services as outpatient tomorrow.
#Coronary angiography February 04, 2022�normal coronary arteries
#Hypothyroidism
Continue [place] Thyroid 60 mg daily
DVT prophylaxis
SCDs
Full code
Total time spent on today's encounter was 52 minutes which included time spent in counseling the patient/family regarding diagnosis and treatment plan as listed above, goals of care, and symptom management. Case was discussed with nursing staff,
specialists, and care coordinators/case management. All labs and imaging personally reviewed by me. Remainder the time spent in detailed review of previous records, lab data, imaging, and other medical provider documentation.
Anticipated Discharge: > 48 hours
Subjective/Interval History
-
Date of Service: October 01, 2023
Patient denies any signs of bleeding. Denies any chest pain or shortness of breath. He does have his chronic pain. Afebrile
Objective Data
-
Labs:
Laboratory Results
10/01/23
08:26
WBC Pending
Hgb Pending
Hct Pending
Plt Count Pending
Sodium Pending
Potassium Pending
Chloride Pending
Carbon Dioxide Pending
BUN Pending
Creatinine Pending
Glucose Pending
Calcium Pending
Vital Signs:
Vital Signs
Temp Pulse Resp BP Pulse Ox
97.7 F 73 18 129/81 99
10/01/23 07:00 10/01/23 07:00 10/01/23 07:00 10/01/23 07:00 10/01/23 07:00
I&O
09/30/23 10/01/23 10/02/23
06:59 06:59 06:59
Intake Total 1060 / 1060 1240 / 1240
Output Total 325 / 325
Balance 735 / 735 1240 / 1240
Review of Systems
-
All other systems: Reviewed and negative
[2023-10-01 08:55] LABS: Hematocrit 22.4 % (39.0-52.0); Hemoglobin 7.5 g/dL (13.0-18.0); Mean Corp Hgb Conc. 33.5 g/dL (33.0-37.0); Mean Corpuscular Hgb 28.7 pg (27.0-31.0); Mean Corpuscular Volume 85.8 fL (80.0-94.0); Mean Platelet Volume 10.1 fL (7.4-10.4); Platelet Count 136 10^3/uL (130-400); Red Blood Cell Count 2.61 10^6/uL (4.70-6.10); Red Cell Dist. Width 17.4 % (11.5-14.5)
[2023-10-01 09:08] LABS: White Blood Cell Count 0.5 10^3/uL (4.8-10.8)
[2023-10-01 09:25] LABS: Blood Urea Nitrogen 34 mg/dl (9-20); Calcium 7.9 mg/dl (8.4-10.2); Carbon Dioxide 32 mmol/L (22-30); Chloride 89 mmol/L (98-107); Estimated Creatinine Clearance 105 ml/min; Glucose 121 mg/dl (70-99); Magnesium 2.4 mg/dl (1.6-2.3); Potassium 3.4 mmol/L (3.5-5.1); Sodium 127 mmol/L (135-145); eGFR > 60.00
[2023-10-01] MEDS: LASIX 20 MG PO (09:51)
[2023-10-01] MEDS: MAG-TAB SR 84 MG PO (09:51)
[2023-10-01] MEDS: NSS (PRESERVATIVE FREE) 10 ML IV ×2 (09:52→20:49)
[2023-10-01] MEDS: LOW STRENGTH ASPIRIN 81 MG PO (09:52)
[2023-10-01] MEDS: PROTONIX IV 40 MG IV ×2 (09:53→20:49)
[2023-10-01] MEDS: KCL 40 MEQ PO (11:51)
[2023-10-01 15:00] VITALS: BP 123/64
--- NOTE | 2023-10-01 15:30 | W.PN.ONC ---
Today's Communication / Plan
-
cont antibiotics
GCSF
follow CBC
supportive care
Impression
Impression
GI bleed
pancytopenia
ecoli bacteremia
esophagogastric cancer - s/p FLOT x1
CVA
Plan
Plan
1. Esophagogastic cancer -
-locally advanced malignancy - receiving neoadjuvant chemo - s/p FLOT x1 - w/ potential plans for resection if adequate response obtained
-followed by Dr. Mccullough at [facility]
2. Pancytopenia - w/ ecoli bacteremia
-antibiotics as per ID
-start GCSF - another dose today - monitor WBC
-transfusional support as needed for hemoglobin and plts
-follow CBC
Will continue to follow with you.
Subjective/Objective
Subjective/Objective
Feels slightly better, no fevers
Vital Signs:
Vital Signs
Temp Pulse Resp BP Pulse Ox
97.7 F 73 18 129/81 99
10/01/23 07:00 10/01/23 07:00 10/01/23 07:00 10/01/23 07:00 10/01/23 07:00
Lab Results:
Laboratory Data
WBC 0.5 10^3/uL (4.8-10.8) L* 10/01/23 08:26
Hgb 7.5 g/dL (13.0-18.0) L 10/01/23 08:26
Plt Count 136 10^3/uL (130-400) 10/01/23 08:26
eGFR > 60.00 10/01/23 08:26
Exam: unchanged
Orders
Orders
Orders From Last 24 Hours
10/01/23 15:29
Tbo-Filgrastim [Granix] 480 mcg SC ONCE ONE
[2023-10-01] MEDS: STERILE WATER FOR INJECTION 20 ML IV (16:17)
[2023-10-01] MEDS: ROCEPHIN 2000 MG IV (16:17)
[2023-10-01] MEDS: FLUSH (NSS) 2 FLUSH IV ×2 (16:26→20:51)
[2023-10-01] MEDS: GRANIX 480 MCG SC (16:32)
--- NOTE | 2023-10-01 16:32 | W.PN.ID1 ---
Date of Service
Date of Service: October 01, 2023
Today's Communication
- follow clinically; patient hoping for dc tomorrow - will depend on blood cultures, ANC
Assessment / Plan
E coli bacteremia - likely translocation
Neurtropenia
Esophageal Cancer on Chemotherapy
- repeat blood cultures also with E coli
- send another set now that on antibiotics
- likely from translocation given known mass and hemoptysis; neutropenia is concerning
- continue ceftriaxone
- follow clinically; patient hoping for dc tomorrow - will depend on blood cultures, ANC
Chief Complaint
-: Bacteremia
Subjective / Review of Systems
afebrile
bp stable
remains leukopenic and neutropenic
sensitivities back
no new complaints
Vital Signs / Physical Exam
Vital Signs
Vital Signs
Temp Pulse Resp BP Pulse Ox
97.7 F 73 18 129/81 99
10/01/23 07:00 10/01/23 07:00 10/01/23 07:00 10/01/23 07:00 10/01/23 07:00
Physical Exam
Constitutional: No Acute Distress
Cardiovascular: Regular Rate and S1/S2; Negative Murmur or Rub
Pulmonary: Clear and Symmetric; Negative Wheezes or Rales
Gastrointestinal: Soft, Non Tender, Non Distended and Normal Bowel Sounds
Skin: Warm and Dry; Negative Rash or Jaundice
Objective Data
Lab Data
Lab Results
10/01/23 08:26
10/01/23 08:26
Estimated Creat Clear 105 ml/min 10/01/23 08:26
Total Bilirubin 0.8 mg/dl (0.2-1.3) 09/29/23 06:12
AST 25 U/L (17-59) 09/29/23 06:12
ALT 14 U/L (0-50) 09/29/23 06:12
Alkaline Phosphatase 50 U/L (38-126) 09/29/23 06:12
Most recent labs reviewed.
Micro Results:
09/28/23 12:40 Blood Culture - Preliminary
Blood/Venous No Growth in 72 hours- Final report to follow
09/29/23 09:32 Blood Culture - Final
Blood/Venous Escherichia coli
Gram Stain - Final
09/29/23 09:02 Blood Culture - Final
Blood/Venous Escherichia coli
Gram Stain - Final
09/28/23 11:21 Blood Culture - Preliminary
Blood/Venous Escherichia coli
Gram Stain - Preliminary
09/30/23 17:40 Blood Culture - Pending
Blood/Venous
09/30/23 17:41 Blood Culture - Pending
Blood/Venous
[2023-10-01] MEDS: OXYCONTIN (CONTROLLED RELEASE) PO (16:34)
[2023-10-01] MEDS: LIPITOR 20 MG PO (16:35)
[2023-10-01] MEDS: NON-FORMULARY ITEM 1 UNIT PO (18:28)
[2023-10-01 23:00] VITALS: BP 112/78
[2023-10-02] MEDS: ROXICODONE 30 MG PO ×5 (01:02→18:21)
[2023-10-02 02:29] VITALS: BMI 20.5
[2023-10-02] MEDS: ARMOUR THYROID 60 MG PO (05:27)
[2023-10-02 06:02] LABS: Hematocrit 23.1 % (39.0-52.0); Hemoglobin 7.9 g/dL (13.0-18.0); Mean Corp Hgb Conc. 34.2 g/dL (33.0-37.0); Mean Corpuscular Hgb 28.6 pg (27.0-31.0); Mean Corpuscular Volume 83.7 fL (80.0-94.0); Mean Platelet Volume 10.3 fL (7.4-10.4); Platelet Count 141 10^3/uL (130-400); Red Blood Cell Count 2.76 10^6/uL (4.70-6.10); Red Cell Dist. Width 17.5 % (11.5-14.5)
[2023-10-02 06:27] LABS: ALT (SGPT) 14 U/L (0-50); AST (SGOT) 26 U/L (17-59); Albumin 2.7 g/dl (3.5-5.0); Alkaline Phosphatase 50 U/L (38-126); Blood Urea Nitrogen 30 mg/dl (9-20); Calcium 7.8 mg/dl (8.4-10.2); Carbon Dioxide 31 mmol/L (22-30); Chloride 91 mmol/L (98-107); Estimated Creatinine Clearance 122 ml/min; Glucose 124 mg/dl (70-99); Sodium 129 mmol/L (135-145); Total Bilirubin 0.4 mg/dl (0.2-1.3); Total Protein 5.6 g/dl (6.3-8.2); eGFR > 60.00
--- NOTE | 2023-10-02 06:30 | W.PN.HOSP.TC ---
Today's Communication/Plan
-
cont abx as per ID
filgastrim as per Hematology
increased Fentanyl patch
baclofen started for hiccups
maintain neutropenic precautions
Assessment / Plan
Assessment / Plan
Physical exam:
General: Chronically ill
HEENT: Normocephalic, Atraumatic and Moist Mucous Membranes
Respiratory: Clear to Auscultation; Negative Wheezes, Rales or Rhonchi
Cardiac: Regular Rhythm and S1/S2
GI: Soft, Nontender and Nondistended
Musculoskeletal: No Clubbing, No Cyanosis and No Edema
Neuro: Awake, Alert and Oriented
Psych: Calm
A/P:
#Upper GI bleed on Eliquis
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
#Acute blood loss anemia
-No further bleeding since admission
-Hemoglobin 7.5 today (hemoglobin 7.8 upon admission)
-Status post blood transfusion
-Changed IV PPI drip to IV Protonix twice a day
-GI consult appreciated
-On low residue diet
-Continue to hold Eliquis
-PT OT eval
-prior Hospitalist discussion with patient and family about the options of no antiplatelet/anticoagulant versus starting low-dose Eliquis or aspirin--> after discussions of pros and cons patient decided to go with only aspirin on 09/29
-So far tolerating asa
Hospitalist reached out to Dr. Antonio Salazar on 09/26 his outpatient regional manager oncologist at [place] and he is aware of pancytopenia, most likely chemotherapy related. Hematology oncology aware of our plans of holding anticoagulation for now and
restarting antiplatelet due to high risk either way of increased risk of bleeding with restarting or increased risk of stroke if not. Hematology-oncology recommends neurology reevaluation and they also will restart chemotherapy as outpatient on his
scheduled appointment when reevaluated outpatient.
Hospitalist also reached out to his cardiology group (He sees Dr Gina Farrar OP)- discussed with Dr. Lynch on 09/26 and he also agrees there is no right answer and probably leaning towards holding anticoagulation until reevaluated as outpatient.
# E. coli bacteremia (suspicion for translocation source)
-ID consult appreciated
-Blood cultures repeated on 09/28 and still positive for E. coli. Blood cultures repeated on 09/29 after antibiotics initiated, NGTD.
-Cont on IV Rocephin 2 g daily
#Constipation in the setting of narcotic use and decreased mobility
-Continue aggressive bowel regimen
-Reviewed x-ray of the abdomen and some abnormalities but clinically improving.
#Shortness of breath and peripheral edema
-Already on IV Lasix 20 mg daily but changed to oral.
-Obtained BNP and numbers are decent
-Obtained chest x-ray PA and lateral and no acute chest pathology.
# Hyponatremia
Current NA 127
Nephrology consulted on 09/26 and appreciated input
# Recent embolic stroke
-Neurology consulted on 09/26 and appreciated input
-Continue to hold anticoagulant
-Started on aspirin 81 mg daily
-Continue statin and lowered the dose due to med interactions.
-Continue neurological checks per neurology recommendations
#Neutropenia/ Pancytopenia
Most likely chemotherapy related
ANC 0.1
Neutropenic precautions
Watch for any signs of fever
Obtained blood cx
Hematology consulted---> hematology started him on G-CSF Granix on 09/29 (480 mcg x 1)
#Esophageal cancer on current chemotherapy
-Follows with Dr. Mccullough at [facility]
#Hx left upper chest wall port placed for 1 at [facility]
#Started chemo for 4 infusion at Center then 24-hour pump( Fluorouracil). S/P FLOT x1.
On testosterone IM every 2 weeks
#Hypokalemia
Replete and trend as needed
#hypomagnesemia
-stop oral mg since mg is up
#Hx paroxysmal atrial tachycardia/tachybradycardia
Has refused permanent pacemaker in the past
#Hep C
-Resume Voscevi
#Chronic pain with chronic opiates
-Continue fentanyl patch dose increased to 50 mcg d/t frequent requirement prn
Cont p.o. meds Xtampza, oxycodone 30 mg every 4 hours as needed
-prior discontinued IV Dilaudid since patient feels this could create more confusion and he just wants the oral pain medications.
#Coronary angiography February 04, 2022�normal coronary arteries
#Hypothyroidism
Continue [place] Thyroid 60 mg daily
#Baclofen started for Hiccups 10/01
DVT prophylaxis
SCDs
Full code
discussed with patient and his Nelli at bedside
Total time spent on today's encounter was 55 minutes which included time spent in counseling the patient/family regarding diagnosis and treatment plan as listed above, goals of care, and symptom management. Case was discussed with nursing staff,
specialists, and care coordinators/case management. All labs and imaging personally reviewed by me. Remainder the time spent in detailed review of previous records, lab data, imaging, and other medical provider documentation.
Anticipated Discharge: 24 - 48 hours
Subjective/Interval History
-
Date of Service: October 02, 2023
Seen and examined at bedside with patient's Nelli present during evaluation.
Reports pain uncontrolled typically requiring frequent PRN at home. Patient also reports significant hiccups for the past few days.
Objective Data
-
Labs:
Laboratory Results
10/02/23
05:22
WBC Pending
Hgb Pending
Hct Pending
Plt Count Pending
Sodium 129 L
Potassium Pending
Chloride 91 L
Carbon Dioxide 31 H
BUN 30 H
Creatinine 0.6 L
Glucose 124 H
Calcium 7.8 L
Total Bilirubin 0.4
AST 26
ALT 14
Alkaline Phosphatase 50
Vital Signs:
Vital Signs
Temp Pulse Resp BP Pulse Ox
97.9 F 94 16 112/78 98
10/01/23 23:00 10/01/23 23:00 10/01/23 23:00 10/01/23 23:00 10/01/23 23:00
I&O
09/30/23 10/01/23 10/02/23
06:59 06:59 06:59
Intake Total 1060 / 1060 1240 / 1240 960 / 960
Output Total 325 / 325
Balance 735 / 735 1240 / 1240 960 / 960
[2023-10-02 06:31] LABS: Potassium 3.7 mmol/L (3.5-5.1)
[2023-10-02 06:54] LABS: White Blood Cell Count 0.6 10^3/uL (4.8-10.8)
[2023-10-02 07:30] VITALS: BP 124/79
[2023-10-02] MEDS: PROTONIX IV 40 MG IV ×2 (07:56→20:55)
[2023-10-02] MEDS: LOW STRENGTH ASPIRIN 81 MG PO (07:56)
[2023-10-02] MEDS: LASIX 20 MG PO (07:56)
[2023-10-02] MEDS: OXYCONTIN (CONTROLLED RELEASE) 40 MG PO ×3 (07:56→21:37)
[2023-10-02] MEDS: NSS (PRESERVATIVE FREE) 10 ML IV ×2 (07:56→20:55)
[2023-10-02] MEDS: SENOKOT PO (07:59)
[2023-10-02] MEDS: MIRALAX PO ×2 (07:59→20:54)
[2023-10-02 08:03] LABS: Anisocytosis 1+; Band Neutrophils 0 % (0-3); Lymphocytes 70 % (20-51); Monocytes 20 % (2-9); Normal RBC Morphology No; Platelets Checked Yes; Segmented Neutrophils 10 % (42-75)
[2023-10-02 08:04] LABS: Hypochromasia 1+; Ovalocytes FEW; Polychromasia Slight; Total Cells Counted 100
[2023-10-02] MEDS: LIORESAL 5 MG PO ×3 (11:53→21:37)
[2023-10-02] MEDS: DURAGESIC 50 MCG/HR PATCH 1 PATCH TRANSDERM (14:01)
[2023-10-02] MEDS: STERILE WATER FOR INJECTION 20 ML IV (14:12)
[2023-10-02] MEDS: ROCEPHIN 2000 MG IV (14:13)
--- NOTE | 2023-10-02 15:26 | W.PN.ONC ---
Today's Communication / Plan
-
GCSF ordered daily x 3 doses
neutropenic precautions
continue abx
supportive care
follow CBC
Impression
Impression
GI bleed
pancytopenia
ecoli bacteremia
esophagogastric cancer - s/p FLOT x1
CVA
Plan
Plan
1. Esophagogastic cancer -
-locally advanced malignancy - receiving neoadjuvant chemo - s/p FLOT x1 - w/ potential plans for resection if adequate response obtained
-followed by Dr. Mccullough at [facility]
2. Pancytopenia - w/ ecoli bacteremia
-antibiotics as per ID
-continue GCSF- monitor WBC
-transfusional support as needed for hemoglobin and plts
-follow CBC
Will continue to follow with you.
Subjective/Objective
Subjective/Objective
afebrile, hiccups, chronic pain
Vital Signs:
Vital Signs
Temp Pulse Resp BP Pulse Ox
97.7 F 83 18 129/79 97
10/02/23 07:30 10/02/23 07:56 10/02/23 07:30 10/02/23 07:56 10/02/23 10:56
Lab Results:
Laboratory Data
WBC 0.6 10^3/uL (4.8-10.8) L* 10/02/23 05:22
Hgb 7.9 g/dL (13.0-18.0) L 10/02/23 05:22
Plt Count 141 10^3/uL (130-400) 10/02/23 05:22
eGFR > 60.00 10/02/23 05:22
Orders
Orders
Orders From Last 24 Hours
10/02/23 22:00
Tbo-Filgrastim [Granix] 480 mcg SC HS
[2023-10-02 16:00] VITALS: BP 100/66
--- NOTE | 2023-10-02 16:11 | CM ---
Case management following for d/c planning
Remains on IV Antibiotics
Following blood cx
ID following
merchandising manager will cont to follow
Plan - anticipate home no needs
--- NOTE | 2023-10-02 17:17 | W.PN.ID1 ---
Date of Service
Date of Service: October 02, 2023
Today's Communication
continue ceftriaxone pending improving ANC
Assessment / Plan
E coli bacteremia - likely translocation
Neurtropenia
Esophageal Cancer on Chemotherapy
- repeat blood cultures also with E coli
- send another set now that on antibiotics
- likely from translocation given known mass and hemoptysis; neutropenia is concerning
- continue ceftriaxone
- follow clinically
Chief Complaint
-: Bacteremia
Subjective / Review of Systems
ANC remains 600
no fevers
tolerating current therapies
hiccups
Vital Signs / Physical Exam
Vital Signs
Vital Signs
Temp Pulse Resp BP Pulse Ox
98.8 F 66 16 100/66 98
10/02/23 16:00 10/02/23 16:00 10/02/23 16:00 10/02/23 16:00 10/02/23 16:00
Physical Exam
Constitutional: No Acute Distress and Chronically Ill
Cardiovascular: Regular Rate
Pulmonary: Symmetric and Non Labored
Gastrointestinal: Non Distended
Neurological: Awake
Objective Data
Lab Data
Lab Results
10/02/23 05:22
10/02/23 05:22
Estimated Creat Clear 122 ml/min 10/02/23 05:22
Total Bilirubin 0.4 mg/dl (0.2-1.3) 10/02/23 05:22
AST 26 U/L (17-59) 10/02/23 05:22
ALT 14 U/L (0-50) 10/02/23 05:22
Alkaline Phosphatase 50 U/L (38-126) 10/02/23 05:22
Most recent labs reviewed.
Micro Results:
09/28/23 12:40 Blood Culture - Preliminary
Blood/Venous No Growth in 4 days- Final report to follow
09/29/23 09:32 Blood Culture - Final
Blood/Venous Escherichia coli
Gram Stain - Final
09/29/23 09:02 Blood Culture - Final
Blood/Venous Escherichia coli
Gram Stain - Final
09/30/23 17:40 Blood Culture - Preliminary
Blood/Venous No Growth in 24 hours- Final report to follow
09/30/23 17:41 Blood Culture - Preliminary
Blood/Venous No Growth in 24 hours- Final report to follow
09/28/23 11:21 Blood Culture - Preliminary
Blood/Venous Escherichia coli
Gram Stain - Preliminary
[2023-10-02] MEDS: NON-FORMULARY ITEM 1 UNIT PO (17:40)
[2023-10-02] MEDS: LIPITOR 20 MG PO (17:41)
[2023-10-02 19:00] VITALS: BP 108/79
[2023-10-02] MEDS: SENOKOT 8.59999999999999964 MG PO (20:55)
[2023-10-02] MEDS: GRANIX 480 MCG SC (21:37)
[2023-10-02 23:00] VITALS: BP 107/65
[2023-10-03] VITALS (9 sets, daily range): BP systolic 93–127; BP diastolic 57–93; BMI 20.2
[2023-10-03] MEDS: ROXICODONE 30 MG PO ×5 (03:10→21:56)
[2023-10-03] MEDS: ARMOUR THYROID 60 MG PO (06:05)
[2023-10-03 06:27] LABS: % Immature Granulocytes 3.7 % (0-0.5); % Lymphocytes 55.6 % (20.5-51.1); % Neutrophils 3.7 % (42.2-75.2); Absolute Lymphocytes 0.3 10^3/uL (1.2-3.4); Absolute Monocytes 0.2 10^3/uL (0.1-0.6); Hematocrit 24.7 % (39.0-52.0); Hemoglobin 8.4 g/dL (13.0-18.0); Mean Corpuscular Hgb 28.4 pg (27.0-31.0); Mean Corpuscular Volume 83.4 fL (80.0-94.0); Mean Platelet Volume 9.8 fL (7.4-10.4); Nucleated Red Blood Cells % 11.1 % (-); Platelet Count 157 10^3/uL (130-400); Red Blood Cell Count 2.96 10^6/uL (4.70-6.10); Red Cell Dist. Width 17.3 % (11.5-14.5)
[2023-10-03 06:35] LABS: White Blood Cell Count 0.5 10^3/uL (4.8-10.8)
[2023-10-03 06:51] LABS: Blood Urea Nitrogen 30 mg/dl (9-20); Calcium 7.9 mg/dl (8.4-10.2); Carbon Dioxide 32 mmol/L (22-30); Chloride 91 mmol/L (98-107); Estimated Creatinine Clearance 103 ml/min; Glucose 124 mg/dl (70-99); Magnesium 2.3 mg/dl (1.6-2.3); Phosphorus 2.5 mg/dl (2.5-4.5); Sodium 128 mmol/L (135-145); eGFR > 60.00
[2023-10-03 06:58] LABS: Potassium 3.3 mmol/L (3.5-5.1)
--- NOTE | 2023-10-03 07:58 | W.PN.HOSP.TC ---
Today's Communication/Plan
-
cont abx as per ID
filgastrim as per hematology
baclofen dose increased for treatment hiccups
encourage compliance with bowel regimen, constipation potentially contributing to hiccups
pain control
neutropenic precautions
Assessment / Plan
Assessment / Plan
Physical exam:
General: Chronically ill
HEENT: Normocephalic, Atraumatic and Moist Mucous Membranes
Respiratory: Clear to Auscultation; Negative Wheezes, Rales or Rhonchi
Cardiac: Regular Rhythm and S1/S2
GI: Soft, Nontender and Nondistended
Musculoskeletal: No Clubbing, No Cyanosis and No Edema
Neuro: Awake, Alert and Oriented
Psych: Calm
A/P:
#Upper GI bleed on Eliquis
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
#Acute blood loss anemia
-No further bleeding since admission
-Hemoglobin 7.5 today (hemoglobin 7.8 upon admission)
-Status post blood transfusion
-Changed IV PPI drip to IV Protonix twice a day
-GI consult appreciated
-On low residue diet
-Continue to hold Eliquis
-PT OT eval
-prior Hospitalist discussion with patient and family about the options of no antiplatelet/anticoagulant versus starting low-dose Eliquis or aspirin--> after discussions of pros and cons patient decided to go with only aspirin on 09/29
-So far tolerating asa
Hospitalist reached out to Dr. Antonio Salazar on 09/26 his outpatient piledriver carpenter oncologist at [place] and he is aware of pancytopenia, most likely chemotherapy related. Hematology oncology aware of our plans of holding anticoagulation for now and
restarting antiplatelet due to high risk either way of increased risk of bleeding with restarting or increased risk of stroke if not. Hematology-oncology recommends neurology reevaluation and they also will restart chemotherapy as outpatient on his
scheduled appointment when reevaluated outpatient.
Hospitalist also reached out to his cardiology group (He sees Dr Gina Farrar OP)- discussed with Dr. Lynch on 09/26 and he also agrees there is no right answer and probably leaning towards holding anticoagulation until reevaluated as outpatient.
# E. coli bacteremia (suspicion for translocation source)
-ID consult appreciated
-Blood cultures repeated on 09/28 and still positive for E. coli. Blood cultures repeated on 09/29 after antibiotics initiated, NGTD.
-Cont on IV Rocephin 2 g daily
#Shortness of breath and peripheral edema
-Already on IV Lasix 20 mg daily but changed to oral.
-Obtained BNP and numbers are decent
-Obtained chest x-ray PA and lateral and no acute chest pathology.
# Hyponatremia
Current NA 127
Nephrology consulted on 09/26 and appreciated input
# Recent embolic stroke
-Neurology consulted on 09/26 and appreciated input
-Continue to hold anticoagulant
-Started on aspirin 81 mg daily
-Continue statin and lowered the dose due to med interactions.
-Continue neurological checks per neurology recommendations
#Neutropenia/ Pancytopenia
Most likely chemotherapy related
ANC 0.1
Neutropenic precautions
Watch for any signs of fever
Obtained blood cx
Hematology consulted---> hematology started him on G-CSF Granix on 09/29 (480 mcg x 1)
#Esophageal cancer on current chemotherapy
-Follows with Dr. Mccullough at [facility]
#Hx left upper chest wall port placed for 1 at [facility]
#Started chemo for 4 infusion at Center then 24-hour pump( Fluorouracil). S/P FLOT x1.
On testosterone IM every 2 weeks
#Hypokalemia
Replete and trend as needed
#hypomagnesemia
-stop oral mg since mg is up
#Hx paroxysmal atrial tachycardia/tachybradycardia
Has refused permanent pacemaker in the past
#Hep C
-Resume Voscevi
#Chronic pain with chronic opiates
-Continue fentanyl patch dose increased to 50 mcg d/t frequent requirement prn
Cont p.o. meds Xtampza, oxycodone 30 mg every 4 hours as needed
-prior discontinued IV Dilaudid since patient feels this could create more confusion and he just wants the oral pain medications.
#Coronary angiography February 04, 2022�normal coronary arteries
#Hypothyroidism
Continue [place] Thyroid 60 mg daily
#Baclofen started for Hiccups 10/01
initially 5 mg TID with some improvement noted since titrated up to 10 mg TID
Constipation likely contributing to hiccups as well.
#Constipation in the setting of narcotic use and decreased mobility
-Continue aggressive bowel regimen (patient intermittently refusing)
-Reviewed x-ray of the abdomen and some abnormalities but clinically improving.
DVT prophylaxis
SCDs
Full code
discussed with patient and his Nelli at bedside
Total time spent on today's encounter was 55 minutes which included time spent in counseling the patient/family regarding diagnosis and treatment plan as listed above, goals of care, and symptom management. Case was discussed with nursing staff,
specialists, and care coordinators/case management. All labs and imaging personally reviewed by me. Remainder the time spent in detailed review of previous records, lab data, imaging, and other medical provider documentation.
Anticipated Discharge: 24 - 48 hours
Subjective/Interval History
-
Date of Service: October 03, 2023
Notes some improvement hiccups with baclofen. Pain control also improved somewhat with increased Fentanyl Patch. Reports constipation started taking his scheduled laxatives again (previously had been refusing)
Objective Data
-
Labs:
Laboratory Results
10/03/23 10/03/23
05:43 06:00
WBC 0.5 L* Cancelled
Hgb 8.4 L Cancelled
Hct 24.7 L Cancelled
Plt Count 157 Cancelled
Sodium 128 L
Potassium 3.3 L
Chloride 91 L
Carbon Dioxide 32 H
BUN 30 H
Creatinine 0.7
Glucose 124 H
Calcium 7.9 L
Vital Signs:
Vital Signs
Temp Pulse Resp BP Pulse Ox
98.3 F 113 18 127/78 96
10/03/23 03:00 10/03/23 03:00 10/03/23 03:00 10/03/23 03:00 10/03/23 03:00
I&O
10/02/23 10/03/23 10/04/23
06:59 06:59 06:59
Intake Total 960 / 960 700 / 700 480 / 480
Balance 960 / 960 700 / 700 480 / 480
[2023-10-03] MEDS: KCL 40 MEQ PO (08:47)
[2023-10-03] MEDS: LASIX 20 MG PO (08:48)
[2023-10-03] MEDS: LOW STRENGTH ASPIRIN 81 MG PO (08:49)
[2023-10-03] MEDS: MIRALAX 17 GRAMS PO ×2 (08:49→21:27)
[2023-10-03] MEDS: SENOKOT 8.59999999999999964 MG PO ×2 (08:49→21:26)
[2023-10-03] MEDS: LIORESAL 5 MG PO (08:49)
[2023-10-03] MEDS: PROTONIX IV 40 MG IV ×2 (08:51→21:26)
[2023-10-03] MEDS: NSS (PRESERVATIVE FREE) 10 ML IV ×2 (08:51→21:27)
[2023-10-03] MEDS: OXYCONTIN (CONTROLLED RELEASE) 40 MG PO ×3 (08:52→23:01)
--- NOTE | 2023-10-03 13:42 | W.PN.ONC ---
Today's Communication / Plan
-
Continue antibiotics for E Coli bacteremia (cultures+ 09/27, 09/28); 09/28 and 09/29 blood cultures are NGTD
Continue G-CSF daily, monitor CBC
Watch for further GI bleeding, continue PPI, DOAC on hold
ASA for recent CVA
Tentatively scheduled for next visit with Dr. Mccullough on 10/09/23, with chemo to follow. May need to be rescheduled pending recovery
Impression
Impression
GI bleed
pancytopenia
ecoli bacteremia
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 Mccullough, [place])
CVA
Plan
Plan
Continue antibiotics for E Coli bacteremia (cultures+ 09/27, 09/28); 09/28 and 09/29 blood cultures are NGTD
Continue G-CSF daily, monitor CBC
Watch for further GI bleeding, continue PPI, DOAC on hold
ASA for recent CVA
Tentatively scheduled for next visit with Dr. Mccullough on 10/09/23, with chemo to follow. May need to be rescheduled pending recovery
Subjective/Objective
Subjective/Objective
sleepy. Family at bedside, noted he was OOB this am, now exhausted.
Vital Signs:
Vital Signs
Temp Pulse Resp BP Pulse Ox
97.2 F 74 18 104/66 99
10/03/23 12:00 10/03/23 12:00 10/03/23 12:00 10/03/23 12:00 10/03/23 12:00
Lab Results:
Laboratory Data
WBC Cancelled 10/03/23 06:00
Hgb Cancelled 10/03/23 06:00
Plt Count Cancelled 10/03/23 06:00
eGFR > 60.00 10/03/23 05:43
--- NOTE | 2023-10-03 13:46 | CM ---
Addendum entered by Delaney Trujillo 10/03/23 14:58:
Accepted by [facility] for [facility] needs
Original Note:
CM following for d/c planning
Neutropenic precautions
Cont abx as per ID
Increased Fentanyl patch
Heme, Onc, ID, Neph following
at bedside - family requesting VN - no preference - referral sent to [facility]
Waiting on acceptance
Plan - home with VN - pend acceptance by [facility]
[2023-10-03] MEDS: ROCEPHIN 2000 MG IV (15:04)
[2023-10-03] MEDS: STERILE WATER FOR INJECTION 20 ML IV (15:04)
[2023-10-03] MEDS: LIORESAL 10 MG PO (15:51)
[2023-10-03] MEDS: NON-FORMULARY ITEM 1 UNIT PO (16:01)
--- NOTE | 2023-10-03 17:06 | W.PN.ID1 ---
Date of Service
Date of Service: October 03, 2023
Today's Communication
- continue ceftriaxone - shift to orals for 2 week course when ANC normalizing
Assessment / Plan
E coli bacteremia - likely translocation
Neurtropenia
Esophageal Cancer on Chemotherapy
- blood cultures clearing
- likely from translocation given known mass and hemoptysis
- continue ceftriaxone - shift to orals for 2 week course when ANC normalizing
- follow clinically
Chief Complaint
-: Bacteremia
Subjective / Review of Systems
afebrile
bp stable
ANC 0
no new complaints
Vital Signs / Physical Exam
Vital Signs
Vital Signs
Temp Pulse Resp BP Pulse Ox
97.2 F 74 18 104/66 99
10/03/23 12:00 10/03/23 12:00 10/03/23 12:00 10/03/23 12:00 10/03/23 12:00
Physical Exam
Constitutional: No Acute Distress
Cardiovascular: Regular Rate and S1/S2; Negative Murmur or Rub
Pulmonary: Clear and Symmetric; Negative Wheezes or Rales
Gastrointestinal: Soft, Non Tender, Non Distended and Normal Bowel Sounds
Skin: Warm and Dry; Negative Rash or Jaundice
Objective Data
Lab Data
Lab Results
10/03/23 06:00
10/03/23 05:43
Estimated Creat Clear 103 ml/min 10/03/23 05:43
Total Bilirubin 0.4 mg/dl (0.2-1.3) 10/02/23 05:22
AST 26 U/L (17-59) 10/02/23 05:22
ALT 14 U/L (0-50) 10/02/23 05:22
Alkaline Phosphatase 50 U/L (38-126) 10/02/23 05:22
Most recent labs reviewed.
Micro Results:
09/28/23 12:40 Blood Culture - Final
Blood/Venous No Growth - Final Report
09/30/23 17:40 Blood Culture - Preliminary
Blood/Venous No Growth in 48 hours- Final report to follow
09/30/23 17:41 Blood Culture - Preliminary
Blood/Venous No Growth in 48 hours- Final report to follow
09/29/23 09:32 Blood Culture - Final
Blood/Venous Escherichia coli
Gram Stain - Final
09/29/23 09:02 Blood Culture - Final
Blood/Venous Escherichia coli
Gram Stain - Final
09/28/23 11:21 Blood Culture - Preliminary
Blood/Venous Escherichia coli
Gram Stain - Preliminary
[2023-10-03] MEDS: LIPITOR 20 MG PO (17:26)
[2023-10-03] MEDS: GRANIX 480 MCG SC (21:56)
[2023-10-03] MEDS: LIORESAL PO (22:37)
[2023-10-04] VITALS (7 sets, daily range): BP systolic 101–117; BP diastolic 63–84; BMI 20.5
--- NOTE | 2023-10-04 04:46 | DOWNTIME ---
There was a [employer] Downtime on 10/04/2023 from 0100 to 10/04/2023 at 0439. Downtime documentation of patient's care, including medication administrations, has been reconciled in the electronic record per guidelines. Refer to the
patient's paper chart under the miscellaneous tab to see printed paper medication records and downtime forms.
[2023-10-04] MEDS: ROXICODONE 30 MG PO ×5 (05:30→22:55)
[2023-10-04] MEDS: ARMOUR THYROID 60 MG PO (06:09)
--- NOTE | 2023-10-04 07:12 | W.PN.ONC2 ---
Today's Communication / Plan
-
Seems to be improving. Spoke with him and regarding transitioning care to [facility] for convenience.
Impression
Impression
GI bleed
pancytopenia
ecoli bacteremia
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 Mccullough, [place])
CVA
Plan
Plan
Continue antibiotics for E Coli bacteremia (cultures+ 09/27, 09/28); 09/28 and 09/29 blood cultures are NGTD
Continue G-CSF daily, monitor CBC
Watch for further GI bleeding, continue PPI, DOAC on hold
ASA for recent CVA
Tentatively scheduled for next visit with Dr. Mccullough on 10/09/23, with chemo to follow. May need to be rescheduled pending recovery
Subjective/Objective
Chief Complaint
ACS Heme Onc
Subjective
Feels tired (just woke up). Overall feeling improved.
Vital Signs:
Vital Signs
Temp Pulse Resp BP Pulse Ox
97.2 F 134 19 111/79 96
10/04/23 03:09 10/04/23 03:09 10/04/23 03:09 10/04/23 03:09 10/04/23 03:09
Lab Results:
Laboratory Data
WBC Cancelled 10/03/23 06:00
Hgb Cancelled 10/03/23 06:00
Plt Count Cancelled 10/03/23 06:00
eGFR > 60.00 10/03/23 05:43
Physical Exam
HEENT: No Jaundice
Cardiology: S1 and S2
Pulmonary: Clear
GI: Soft
Extremities: No C/C/E
[2023-10-04 07:37] LABS: Hematocrit 26.2 % (39.0-52.0); Hemoglobin 8.9 g/dL (13.0-18.0); Mean Corpuscular Hgb 28.8 pg (27.0-31.0); Mean Corpuscular Volume 84.8 fL (80.0-94.0); Mean Platelet Volume 10.5 fL (7.4-10.4); Nucleated Red Blood Cells % 2.4 % (-); Platelet Count 185 10^3/uL (130-400); Red Blood Cell Count 3.09 10^6/uL (4.70-6.10); Red Cell Dist. Width 17.5 % (11.5-14.5)
--- NOTE | 2023-10-04 07:39 | PTCARENOTE ---
NEWSPAPER EDITOR made aware @0451 about patient's HR going up into the 140s and sustaining in the 130s, with BP 98/76. NEWSPAPER EDITOR had labs drawn immediately, results pending, patient asymptomatic stating 'that happens all the time', will continue plan of care.
[2023-10-04 07:40] LABS: White Blood Cell Count 0.8 10^3/uL (4.8-10.8)
[2023-10-04 08:11] LABS: Band Neutrophils 4 % (0-3); Lymphocytes 66 % (20-51); Monocytes 16 % (2-9); Segmented Neutrophils 14 % (42-75)
[2023-10-04 08:12] LABS: Absolute Neutrophils -Man Diff 0.1 10^3/uL (1.4-6.5); Anisocytosis 1+; Hypochromasia 1+; Normal RBC Morphology No; Ovalocytes Slight; Platelets Checked Yes; Polychromasia Slight; Total Cells Counted 100
--- NOTE | 2023-10-04 08:38 | W.PN.HOSP.TC ---
Today's Communication/Plan
-
increased Fentanyl pain control
resume patient's own med Testosterone IM injection
compressive stockings
Baclofen dose reduced back to 5 mg TID d/t oversedation
Maalox AC added
Cont abx as per ID
Granix as per Hematology
Assessment / Plan
Assessment / Plan
Physical exam:
General: Chronically ill
HEENT: Normocephalic, Atraumatic and Moist Mucous Membranes
Respiratory: Clear to Auscultation; Negative Wheezes, Rales or Rhonchi
Cardiac: Regular Rhythm and S1/S2
GI: Soft, Nontender and Nondistended
Musculoskeletal: No Clubbing, No Cyanosis, Lower ext pedal Edema +1 noted b/l
Neuro: Awake, Alert and Oriented
Psych: Calm
A/P:
#Upper GI bleed on Eliquis
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
#Acute blood loss anemia
-No further bleeding since admission
-Hemoglobin 7.5 today (hemoglobin 7.8 upon admission)
-Status post blood transfusion
-Changed IV PPI drip to IV Protonix twice a day
-GI consult appreciated
-On low residue diet
-Continue to hold Eliquis
-PT OT eval
-prior Hospitalist discussion with patient and family about the options of no antiplatelet/anticoagulant versus starting low-dose Eliquis or aspirin--> after discussions of pros and cons patient decided to go with only aspirin on 09/29
-So far tolerating asa
Hospitalist reached out to Dr. Antonio Salazar on 09/26 his outpatient senior it assistant oncologist at [place] and he is aware of pancytopenia, most likely chemotherapy related. Hematology oncology aware of our plans of holding anticoagulation for now and
restarting antiplatelet due to high risk either way of increased risk of bleeding with restarting or increased risk of stroke if not. Hematology-oncology recommends neurology reevaluation and they also will restart chemotherapy as outpatient on his
scheduled appointment when reevaluated outpatient.
Hospitalist also reached out to his cardiology group (He sees Dr Gina Farrar OP)- discussed with Dr. Lynch on 09/26 and he also agrees there is no right answer and probably leaning towards holding anticoagulation until reevaluated as outpatient.
# E. coli bacteremia (suspicion for translocation source)
-ID consult appreciated
-Blood cultures repeated on 09/28 and still positive for E. coli. Blood cultures repeated on 09/29 after antibiotics initiated, NGTD.
-Cont on IV Rocephin 2 g daily
#Shortness of breath and peripheral edema
-Already on IV Lasix 20 mg daily but changed to oral.
-BNP wnl
-chest x-ray PA and lateral and no acute chest pathology.
-compressive stockings, TEDs lower ext ordered
# Hyponatremia
Na stable high 120s
Nephrology consulted on 09/26 and appreciated input
# Recent embolic stroke
-Neurology consulted on 09/26 and appreciated input
-Continue to hold anticoagulant
-Started on aspirin 81 mg daily, tolerating, cont
-Continue statin, dose lowered due to med interactions.
-Continue neurological checks per neurology recommendations
#Neutropenia/ Pancytopenia
Most likely chemotherapy related
ANC 0.1
Neutropenic precautions
Watch for any signs of fever
Hematology consult appreciated
G-CSF Granix started on 09/29, cont as per Hematology
#Esophageal cancer on current chemotherapy
-Follows with Dr. Mccullough at [facility]
#Hx left upper chest wall port placed for 1 at [facility]
#Started chemo for 4 infusion at Center then 24-hour pump( Fluorouracil). S/P FLOT x1.
On testosterone IM every 2 weeks
#Hypokalemia
Replete and trend as needed
#hypomagnesemia
-stop oral mg since mg is up
#Hx paroxysmal atrial tachycardia/tachybradycardia
Has refused permanent pacemaker in the past
#Hep C
-Resume Voscevi
#Chronic pain with chronic opiates
-Continue fentanyl patch dose gradually increased from 25 to 75 mcg d/t frequent requirement prn
Cont p.o. meds Xtampza, oxycodone 30 mg every 4 hours as needed
-prior discontinued IV Dilaudid since patient feels this could create more confusion and he just wants the oral pain medications.
#Coronary angiography February 04, 2022�normal coronary arteries
#Hypothyroidism
Continue [place] Thyroid 60 mg daily
#Baclofen started for Hiccups 10/01
initially 5 mg TID with some improvement noted since titrated up to 10 mg TID, reduced back to 5 mg d/t oversedation
Constipation likely contributing to hiccups as well.
#Constipation in the setting of narcotic use and decreased mobility
-Continue aggressive bowel regimen (patient intermittently refused)
-Reviewed x-ray of the abdomen and some abnormalities but clinically improving.
#Hiccups likely exacerbated by GERD
cont PPI
Maalox AC added
Severe Malnutrition
DVT prophylaxis
SCDs
Full code
discussed with patient and his Nelli at bedside
Total time spent on today's encounter was 55 minutes which included time spent in counseling the patient/family regarding diagnosis and treatment plan as listed above, goals of care, and symptom management. Case was discussed with nursing staff,
specialists, and care coordinators/case management. All labs and imaging personally reviewed by me. Remainder the time spent in detailed review of previous records, lab data, imaging, and other medical provider documentation.
Anticipated Discharge: 24 - 48 hours
Subjective/Interval History
-
Date of Service: October 04, 2023
reports some improvement in pain and hiccups. Constipation persists. present during evaluation notes concern oversedation baclofen along with lower ext swelling (reporting typical use compressive stockings at home)
Objective Data
-
Labs:
Laboratory Results
10/04/23
05:15
WBC 0.8 L*
Hgb 8.9 L
Hct 26.2 L
Plt Count 185
Sodium Pending
Potassium Pending
Chloride Pending
Carbon Dioxide Pending
BUN Pending
Creatinine Pending
Glucose Pending
Calcium Pending
Vital Signs:
Vital Signs
Temp Pulse Resp BP Pulse Ox
97.2 F 134 19 111/79 96
10/04/23 03:09 10/04/23 03:09 10/04/23 03:09 10/04/23 03:09 10/04/23 03:09
I&O
10/03/23 10/04/23 10/05/23
06:59 06:59 06:59
Intake Total 700 / 700 1000 / 1000
Balance 700 / 700 1000 / 1000
[2023-10-04 09:14] LABS: Blood Urea Nitrogen 35 mg/dl (9-20); Calcium 7.7 mg/dl (8.4-10.2); Carbon Dioxide 31 mmol/L (22-30); Chloride 93 mmol/L (98-107); Estimated Creatinine Clearance 105 ml/min; Glucose 123 mg/dl (70-99); Magnesium 2.4 mg/dl (1.6-2.3); Phosphorus 2.4 mg/dl (2.5-4.5); Potassium 3.6 mmol/L (3.5-5.1); Sodium 129 mmol/L (135-145); eGFR > 60.00
[2023-10-04] MEDS: OXYCONTIN (CONTROLLED RELEASE) 40 MG PO ×3 (09:58→21:16)
[2023-10-04] MEDS: LOW STRENGTH ASPIRIN 81 MG PO (10:02)
[2023-10-04] MEDS: SENOKOT 8.59999999999999964 MG PO (10:02)
[2023-10-04] MEDS: LASIX 20 MG PO (10:02)
[2023-10-04] MEDS: NSS (PRESERVATIVE FREE) 10 ML IV ×2 (10:06→21:04)
[2023-10-04] MEDS: PROTONIX IV 40 MG IV ×2 (10:07→21:04)
--- NOTE | 2023-10-04 10:43 | PN.CDI ---
CDI
- -
CDI:
Physician Documentation Request
Admit Date: 09/26/23 14:29
Dear Doctor Ne,
10/02 note states 'Reported weight history demonstrates a significant weight loss of 6.3% x 1 week, 14.9% x 1 month. NFPE: severe muscle and fat loss noted. Per ASPEN/AND guidelines, pt meets for severe malnutrition in context of chronic illness
as evidenced by < 50% intake est needs x 1 month. 14.9% weight loss x 1 month, moderate muscle and fat loss'
Based on the information, which of the following most accurately represents the patient's nutritional status?
Malnutrition (specify if moderate or severe)
No nutritional deficiency
Other (please specify)
[place] Criteria ([facility] Hospitalist 2017)
2 or more criteria must be present for either
non severe or severe malnutrition
Note that the criteria differs related to the
presence of an acute or chronic illness
Acute Illness Chronic Illness
Energy Intake Non Severe: <75% for >7 days Non Severe: <75% for >1 month
Severe: <50% for >5 days Severe: <75% for >1 month
Weight Loss Non Severe: 1-2% over 1 week Non Severe: 5% over 1 month
5% over 1 month 7.5% over 3 months
7.5% over 3 months 10% over 6 months
1 year N/A 20% over 1 year
Severe: >2% over 1 week Severe: >5% over 1 month
>5% over 1 month >7.5% over 3 months
>7.5% over 3 months >10% over 6 months
1 year N/A >20% over 1 year
Body Fat Non Severe: Mild Decrease Non Severe: Mild Loss
Severe: Moderate Decrease Severe: Severe Loss
Muscle Mass Non Severe: Mild Decrease Non Severe: Mild Loss
Severe: Moderate Decrease Severe: Severe Loss
Fluid Accumulation Non Severe: Mild Accumulation Non Severe: Mild Accumulation
Severe: Moderate to severe Severe: Moderate to severe
accumulation accumulation
Reduced [employer] Strength Non Severe: N/A Non Severe: N/A
Severe: Measurably reduced Severe: Measurably reduced
Additional criteria that can be used to Determine if Mild or Moderate Malnutrition (Merck Manual 2018)
Mild Moderate Severe
Albumin gm/dl <3.0 gm/dl <2.5 gm/dl <2.0 gm/dl
Pre Albumin mg/dl <15 gm/dl <10 mg/dl <5.0 mg/dl
BMI <18.5 <17 <16
Use of terms such as suspected, likely, concern for, or probable (associated with a specific diagnosis that is being evaluated, monitored, or treated as if it exists) are acceptable and can be coded in the inpatient setting, when documented at the
time of discharge.
Thank you,
Anna Duenas RN, BSN
CDI Specialist
tiger text
Please use your independent medical judgment in providing your response.
[2023-10-04] MEDS: MIRALAX PO (11:54)
[2023-10-04] MEDS: LIORESAL PO (11:57)
[2023-10-04] MEDS: DURAGESIC 75 MCG/HR PATCH 1 PATCH TRANSDERM (13:07)
[2023-10-04] MEDS: MAALOX 30 ML PO ×2 (13:08→15:37)
[2023-10-04] MEDS: LIORESAL 5 MG PO ×3 (13:08→21:16)
[2023-10-04] MEDS: ROCEPHIN 2000 MG IV (15:16)
[2023-10-04] MEDS: STERILE WATER FOR INJECTION 20 ML IV (15:17)
--- NOTE | 2023-10-04 15:36 | CM ---
Case management following for d/c planning
Pt accepted by [facility] for home care needs
at bedside - made aware
Plan - Home with [facility] when medically ready
--- NOTE | 2023-10-04 16:40 | W.PN.ID1 ---
Date of Service
Date of Service: October 04, 2023
Today's Communication
continue ceftriaxone
Assessment / Plan
E coli bacteremia - likely translocation
Neurtropenia
Esophageal Cancer on Chemotherapy
- blood cultures clearing
- likely from translocation given known mass and hemoptysis
- continue ceftriaxone - shift to orals for 2 week course when ANC normalizing
- follow clinically
Chief Complaint
-: Bacteremia
Subjective / Review of Systems
sleeping and not disturbed
remains neutropenic
cr stable
09/29 blood cultures clearing
Vital Signs / Physical Exam
Vital Signs
Vital Signs
Temp Pulse Resp BP Pulse Ox
97.8 F 92 17 101/63 97
10/04/23 15:00 10/04/23 15:00 10/04/23 15:00 10/04/23 15:00 10/04/23 15:00
Physical Exam
Constitutional: No Acute Distress and Comfortable
Cardiovascular: Regular Rate
Pulmonary: Symmetric and Non Labored
Gastrointestinal: Non Distended
Neurological: Negative Awake
Objective Data
Lab Data
Lab Results
10/04/23 05:15
10/04/23 05:15
Estimated Creat Clear 105 ml/min 10/04/23 05:15
Total Bilirubin 0.4 mg/dl (0.2-1.3) 10/02/23 05:22
AST 26 U/L (17-59) 10/02/23 05:22
ALT 14 U/L (0-50) 10/02/23 05:22
Alkaline Phosphatase 50 U/L (38-126) 10/02/23 05:22
Most recent labs reviewed.
Micro Results:
09/30/23 17:40 Blood Culture - Preliminary
Blood/Venous No Growth in 72 hours- Final report to follow
09/30/23 17:41 Blood Culture - Preliminary
Blood/Venous No Growth in 72 hours- Final report to follow
09/28/23 12:40 Blood Culture - Final
Blood/Venous No Growth - Final Report
09/29/23 09:32 Blood Culture - Final
Blood/Venous Escherichia coli
Gram Stain - Final
09/29/23 09:02 Blood Culture - Final
Blood/Venous Escherichia coli
Gram Stain - Final
09/28/23 11:21 Blood Culture - Preliminary
Blood/Venous Escherichia coli
Gram Stain - Preliminary
[2023-10-04] MEDS: LIPITOR 20 MG PO (17:16)
[2023-10-04] MEDS: NON-FORMULARY ITEM 1 UNIT PO (17:16)
[2023-10-04] MEDS: MIRALAX 17 GRAMS PO (21:04)
[2023-10-04] MEDS: SENOKOT PO ×2 (21:04→21:30)
[2023-10-04] MEDS: GRANIX 480 MCG SC (21:16)
[2023-10-05] MEDS: ROXICODONE 30 MG PO ×3 (03:29→13:35)
[2023-10-05 03:34] VITALS: BP 109/66
[2023-10-05 06:00] VITALS: BMI 20.4
[2023-10-05] MEDS: ARMOUR THYROID 60 MG PO (06:18)
[2023-10-05 06:28] LABS: Hematocrit 23.8 % (39.0-52.0); Hemoglobin 7.8 g/dL (13.0-18.0); Mean Corp Hgb Conc. 32.8 g/dL (33.0-37.0); Mean Corpuscular Hgb 27.5 pg (27.0-31.0); Mean Corpuscular Volume 83.8 fL (80.0-94.0); Mean Platelet Volume 10.4 fL (7.4-10.4); Nucleated Red Blood Cells % 1.2 % (-); Platelet Count 176 10^3/uL (130-400); Red Blood Cell Count 2.84 10^6/uL (4.70-6.10); Red Cell Dist. Width 17.6 % (11.5-14.5)
[2023-10-05 06:50] LABS: Blood Urea Nitrogen 38 mg/dl (9-20); Calcium 7.5 mg/dl (8.4-10.2); Carbon Dioxide 35 mmol/L (22-30); Chloride 93 mmol/L (98-107); Estimated Creatinine Clearance 104 ml/min; Glucose 100 mg/dl (70-99); Magnesium 2.4 mg/dl (1.6-2.3); Phosphorus 2.5 mg/dl (2.5-4.5); Potassium 3.4 mmol/L (3.5-5.1); Sodium 129 mmol/L (135-145); eGFR > 60.00
[2023-10-05 07:00] VITALS: BP 105/73
--- NOTE | 2023-10-05 07:28 | W.PN.HOSP.TC ---
Addendum entered and electronically signed by Xochilt Olivia MD 10/05/23 16:05:
correction to documentation. Patient has not been pancytopenic. Plt count has remained normal throughout stay. He has been anemic and leukopenic
Original Note:
Today's Communication/Plan
-
discharge
Assessment / Plan
Assessment / Plan
Physical exam:
General: Chronically ill
HEENT: Normocephalic, Atraumatic and Moist Mucous Membranes
Respiratory: Clear to Auscultation; Negative Wheezes, Rales or Rhonchi
Cardiac: Regular Rhythm and S1/S2
GI: Soft, Nontender and Nondistended
Musculoskeletal: No Clubbing, No Cyanosis, Lower ext pedal Edema +1 noted b/l
Neuro: Awake, Alert and Oriented
Psych: Calm
A/P:
#Upper GI bleed on Eliquis
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
#Acute blood loss anemia
-No further bleeding since admission
-Hemoglobin 7.5 today (hemoglobin 7.8 upon admission)
-Status post blood transfusion
-Changed IV PPI drip to IV Protonix twice a day
-GI consult appreciated
-On low residue diet
-Continue to hold Eliquis
-PT OT eval
-prior Hospitalist discussion with patient and family about the options of no antiplatelet/anticoagulant versus starting low-dose Eliquis or aspirin--> after discussions of pros and cons patient decided to go with only aspirin on 09/29
-So far tolerating asa
Hospitalist reached out to Dr. Antonio Salazar on 09/26 his outpatient adjunct teacher oncologist at [place] and he is aware of pancytopenia, most likely chemotherapy related. Hematology oncology aware of our plans of holding anticoagulation for now and
restarting antiplatelet due to high risk either way of increased risk of bleeding with restarting or increased risk of stroke if not. Hematology-oncology recommends neurology reevaluation and they also will restart chemotherapy as outpatient on his
scheduled appointment when reevaluated outpatient.
Hospitalist discussed with his cardiology group (sees Dr Gina Farrar OP)- discussed with Dr. Lynch on 09/26 and he also agrees there is no right answer and probably leaning towards holding anticoagulation until reevaluated as outpatient.
# E. coli bacteremia (suspicion for translocation source)
-ID consult appreciated
-Blood cultures repeated on 09/28 and still positive for E. coli. Blood cultures repeated on 09/29 after antibiotics initiated, NGTD 4 days.
-Following improvement in neutropenia, IV Rocephin 2 g daily transitioned to ciprofloxacin 5 more days, cleared for discharge as per ID
#Shortness of breath and peripheral edema
-Already on IV Lasix 20 mg daily but changed to oral.
-BNP wnl
-chest x-ray PA and lateral and no acute chest pathology.
-compressive stockings, TEDs lower ext ordered
# Hyponatremia
Na stable high 120s
Nephrology consulted on 09/26 and appreciated input
# Recent embolic stroke
-Neurology consulted on 09/26 and appreciated input
-Continue to hold anticoagulant
-Started on aspirin 81 mg daily, tolerating, cont
-Continue statin, dose lowered due to med interactions.
-Continue neurological checks per neurology recommendations
#Neutropenia/ Pancytopenia
Most likely chemotherapy related
ANC improving
cont Neutropenic precautions
Hematology consult eval appreciated completed 5 days of granix, outpt hematology follow up recommended
discussed with Hematology, clear for discharge
#Esophageal cancer on current chemotherapy
-Follows with Dr. Mccullough at [facility]
#Hx left upper chest wall port placed for 1 at [facility]
#Started chemo for 4 infusion at [facility] then 24-hour pump( Fluorouracil). S/P FLOT x1.
On testosterone IM every 2 weeks
#Hypokalemia
Monitor and replete as necessary
started schedule potassium supplementation 20 MeQ daily
#hypomagnesemia resolved
#Hx paroxysmal atrial tachycardia/tachybradycardia
Has refused permanent pacemaker in the past
#Hep C
-Resumed Voscevi
#Chronic pain with chronic opiates
-Continue fentanyl patch dose gradually increased from 25 to 75 mcg d/t frequent requirement prn
Cont p.o. meds Xtampza, oxycodone 30 mg every 4 hours as needed
-prior discontinued IV Dilaudid since patient feels this could create more confusion and he just wants the oral pain medications.
#Coronary angiography February 04, 2022�normal coronary arteries
#Hypothyroidism
Continue [place] Thyroid 60 mg daily
#Baclofen started for Hiccups 10/01
initially 5 mg TID with some improvement noted since titrated up to 10 mg TID, reduced back to 5 mg d/t oversedation
Constipation likely contributing to hiccups as well.
#Constipation in the setting of narcotic use and decreased mobility
-Continue aggressive bowel regimen (patient intermittently refused)
-Reviewed x-ray of the abdomen and some abnormalities but clinically improving.
#Hiccups likely exacerbated by GERD
cont PPI
Maalox AC added
Severe Malnutrition
DVT prophylaxis
SCDs
Full code
Medically Stable for discharge home with outpatient follow up recommendations.
discussed with patient and his Nelli at bedside
Total Time Preparing Discharge ___60___ minutes including examination of the patient, summary of the hospital stay, instructions for continuing care to all relevant caregivers; and preparation of discharge records, prescriptions, and referral forms
if necessary.
Anticipated Discharge: Today
Subjective/Interval History
-
Date of Service: October 05, 2023
reports improvement in hiccups and pain though remain present. Constipation resolved. present during evaluation. denies new acute issues at this time. eager to go home .
Objective Data
-
Labs:
Laboratory Results
10/05/23
05:54
WBC Pending
Hgb 7.8 L
Hct 23.8 L
Plt Count 176
Sodium 129 L
Potassium 3.4 L
Chloride 93 L
Carbon Dioxide 35 H
BUN 38 H
Creatinine 0.7
Glucose 100 H
Calcium 7.5 L
Vital Signs:
Vital Signs
Temp Pulse Resp BP Pulse Ox
97.2 F 85 17 109/66 96
10/05/23 03:34 10/05/23 03:34 10/05/23 03:34 10/05/23 03:34 10/05/23 03:34
I&O
10/04/23 10/05/23 10/06/23
06:59 06:59 06:59
Intake Total 1000 / 1000
Balance 1000 / 1000
[2023-10-05 07:45] LABS: Band Neutrophils 12 % (0-3); Segmented Neutrophils 28 % (42-75)
[2023-10-05 07:46] LABS: Anisocytosis 1+; Hypochromasia 1+; Lymphocytes 46 % (20-51); Monocytes 14 % (2-9); Normal RBC Morphology No; Ovalocytes Slight; Platelets Checked Yes; Polychromasia Slight; Total Cells Counted 100
[2023-10-05 07:47] LABS: Absolute Neutrophils -Man Diff 0.6 10^3/uL (1.4-6.5); White Blood Cell Count 1.6 10^3/uL (4.8-10.8)
[2023-10-05] MEDS: SENOKOT 8.59999999999999964 MG PO (08:03)
[2023-10-05] MEDS: MAALOX 30 ML PO ×2 (08:03→13:28)
[2023-10-05] MEDS: LOW STRENGTH ASPIRIN 81 MG PO (08:03)
[2023-10-05] MEDS: LASIX 20 MG PO (08:03)
[2023-10-05] MEDS: LIORESAL 5 MG PO ×2 (08:04→16:06)
[2023-10-05] MEDS: NSS (PRESERVATIVE FREE) 10 ML IV (08:05)
[2023-10-05] MEDS: PROTONIX IV 40 MG IV (08:05)
[2023-10-05] MEDS: MIRALAX PO (08:21)
[2023-10-05] MEDS: OXYCONTIN (CONTROLLED RELEASE) 40 MG PO ×2 (10:07→16:00)
--- NOTE | 2023-10-05 10:07 | W.PN.ONC ---
Today's Communication / Plan
-
Continue antibiotics for E Coli bacteremia (cultures+ 09/27, 09/28); 09/28 and 09/29 blood cultures are NGTD
Continue G-CSF daily, monitor CBC
Watch for further GI bleeding, continue PPI, DOAC on hold
ASA for recent CVA
Tentatively scheduled for next visit with Dr. Mccullough on 10/09/23, with chemo to follow. May need to be rescheduled pending recovery
Impression
Impression
GI bleed
pancytopenia
ecoli bacteremia
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 Mccullough, [place])
CVA
Subjective/Objective
Subjective/Objective
Vital Signs:
Vital Signs
Temp Pulse Resp BP Pulse Ox
97.5 F 88 18 105/73 98
10/05/23 07:00 10/05/23 07:00 10/05/23 07:00 10/05/23 07:00 10/05/23 07:00
Lab Results:
Laboratory Data
WBC 1.6 10^3/uL (4.8-10.8) L* 10/05/23 05:54
Hgb 7.8 g/dL (13.0-18.0) L 10/05/23 05:54
Plt Count 176 10^3/uL (130-400) 10/05/23 05:54
eGFR > 60.00 10/05/23 05:54
[2023-10-05 11:00] VITALS: BP 117/76
--- NOTE | 2023-10-05 11:43 | W.PN.ONC ---
Today's Communication / Plan
-
Continue antibiotics for E Coli bacteremia (cultures+ 09/27, 09/28); 09/28 and 09/29 blood cultures are NGTD
Continue G-CSF daily, monitor CBC
Watch for further GI bleeding, continue PPI, DOAC on hold
ASA for recent CVA
Tentatively scheduled for next visit with Dr. Mccullough on 10/09/23
May want to follow-up with [facility] for increased outpatient support and infusion of FLOT
Impression
Impression
GI bleed
pancytopenia
ecoli bacteremia
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 Mccullough, [facility])
CVA
Subjective/Objective
Subjective/Objective
Patient troubled by paroxysms of intractable hiccups. Generally feeling stronger. Denies shaking chills or fever
Vital Signs:
Vital Signs
Temp Pulse Resp BP Pulse Ox
97.5 F 88 18 105/73 98
10/05/23 07:00 10/05/23 07:00 10/05/23 07:00 10/05/23 07:00 10/05/23 07:00
General: Cachectic
HEENT: No scleral icterus
Lungs: Clear
Extremities: without pretibial edema or asymmetry
Lab Results:
Laboratory Data
WBC 1.6 10^3/uL (4.8-10.8) L* 10/05/23 05:54
Hgb 7.8 g/dL (13.0-18.0) L 10/05/23 05:54
Plt Count 176 10^3/uL (130-400) 10/05/23 05:54
eGFR > 60.00 10/05/23 05:54
[2023-10-05] MEDS: ROCEPHIN 2000 MG IV (14:05)
[2023-10-05] MEDS: STERILE WATER FOR INJECTION 20 ML IV (14:05)
--- NOTE | 2023-10-05 14:10 | W.PN.ID1 ---
Date of Service
Date of Service: October 05, 2023
Today's Communication
- blood cultures clearing 09/29
- ANC up to 600
- switch to ciprofloxacin x5 more days
- stable for dc from ID perspective
Assessment / Plan
E coli bacteremia - likely translocation
Neurtropenia
Esophageal Cancer on Chemotherapy
- blood cultures clearing 09/29
- ANC up to 600
- switch to ciprofloxacin x5 more days
- stable for dc from ID perspective
Chief Complaint
-: Bacteremia
Subjective / Review of Systems
afebrile
bp stable
improving wbc
ANC up to 0.6
blood cultures have cleared
in good spirits
Vital Signs / Physical Exam
Vital Signs
Vital Signs
Temp Pulse Resp BP Pulse Ox
97.4 F 88 20 117/76 98
10/05/23 11:00 10/05/23 11:00 10/05/23 11:00 10/05/23 11:00 10/05/23 11:00
Physical Exam
Constitutional: No Acute Distress
Cardiovascular: Regular Rate and S1/S2; Negative Murmur or Rub
Pulmonary: Clear and Symmetric; Negative Wheezes or Rales
Gastrointestinal: Soft, Non Tender, Non Distended and Normal Bowel Sounds
Skin: Warm and Dry; Negative Rash or Jaundice
Objective Data
Lab Data
Lab Results
10/05/23 05:54
10/05/23 05:54
Estimated Creat Clear 104 ml/min 10/05/23 05:54
Total Bilirubin 0.4 mg/dl (0.2-1.3) 10/02/23 05:22
AST 26 U/L (17-59) 10/02/23 05:22
ALT 14 U/L (0-50) 10/02/23 05:22
Alkaline Phosphatase 50 U/L (38-126) 10/02/23 05:22
Most recent labs reviewed.
Micro Results:
09/28/23 11:21 Blood Culture - Final
Blood/Venous Escherichia coli
Gram Stain - Final
09/30/23 17:40 Blood Culture - Preliminary
Blood/Venous No Growth in 4 days- Final report to follow
09/30/23 17:41 Blood Culture - Preliminary
Blood/Venous No Growth in 4 days- Final report to follow
09/28/23 12:40 Blood Culture - Final
Blood/Venous No Growth - Final Report
09/29/23 09:32 Blood Culture - Final
Blood/Venous Escherichia coli
Gram Stain - Final
09/29/23 09:02 Blood Culture - Final
Blood/Venous Escherichia coli
Gram Stain - Final
Care Review
Plan reviewed with: Physician (Dr Ne clark)
[2023-10-05 15:00] VITALS: BP 113/76
--- NOTE | 2023-10-05 15:59 | CM ---
Case management following for d/c planning
Pt accepted by [facility] for home care needs
Has ride home with at d/c
Plan - home with [facility]
Fax - [phone]
[2023-10-05] MEDS: KLOR-CON 20 MEQ PO (16:00)
--- NOTE | 2023-10-05 16:49 | W.DCSUMMARY ---
Discharge Summary
Discharge Data
Date of Admission: 09/26/23
Date of Discharge: 10/05/23
-
Pending Results: Yes
Additional Pending Results:
official Culture results
Hospital Course
63M p/w hemoptysis and coffee-ground emesis and very tiny clots last evening. Reported compliance with home Eliquis. He also had scants amount of bloody mucus morning. He reported ongoing leg edema for 3 weeks with episodic bleeding over the past
2 and half weeks and dark black stool day prior after being constipated for 1 week. He states he had diagnostic laparoscopic abdominal surgery on 09/18/2023 looking for any cancerous lesion. Status post TNK on 09/23/2023 for acute CVA, nonischemic TX
and hyponatremia, he had echo showing echodensity and was placed on oral Eliquis along with Lasix 20 mg daily. He is currently being treated for esophageal cancer with chemotherapy. He stated he had EGD along with port placement and laparoscopy on
09/18/2023 at [facility]. Other PMH included esophageal/gastric cancer on chemo, A-fib with bradycardia has refused pacemaker, hep C, hypothyroidism, chronic pain on chronic oral opiates. Upper GI bleed on Eliquis, Hx GI bleed/anemia related
to esophageal gastric cancer, Acute blood loss anemia, Eliquis was held and no further bleeding was noted since admission. Patient was treated with IV Protonix BID and received transfusion. GI evaluated and diet was advanced to low residue. Prior
Hospitalist discussion with patient and family about the options of no antiplatelet/anticoagulant versus starting low-dose Eliquis or aspirin. After discussions of pros and cons patient decided to go with only aspirin on 09/29. Tolerated ASA
throughout hospitalization. Hospitalist reached out to Dr. Antonio Salazar on 09/26 his outpatient emergency medicine physician oncologist at [place] who is aware of pancytopenia, most likely chemotherapy related. Hematology oncology aware of plans of holding
anticoagulation for now and restarting antiplatelet due to high risk either way of increased risk of bleeding with restarting or increased risk of stroke if not. Hematology-oncology recommended neurology reevaluation and they also will restart
chemotherapy as outpatient on his scheduled appointment when reevaluated outpatient. Neuro evaluation was appreciated. Hospitalist discussed with his cardiology group (sees Dr Gina Farrar OP)- discussed with Cardiology agreed there is no right
answer and leaned towards holding anticoagulation until reevaluated as outpatient. E. coli bacteremia (suspicion for translocation source). ID consult appreciated blood cultures repeated on 09/28 and still positive for E. coli. Blood cultures
repeated on 09/29 after antibiotics initiated, NGTD. Following improvement in neutropenia, IV Rocephin 2 g daily transitioned to ciprofloxacin 5 more days, cleared for discharge as per ID. Neutropenia anemia most likely chemotherapy related.
Hematology evaluated and treated with 5 days of Granix. Neutropenia started improving prior discharge. Chronic pain, opiate dependent, continue fentanyl patch dose gradually increased from 25 to 75 mcg d/t frequent requirement prn. Prior
discontinued prn IV Dilaudid as patient felt contributing to confusion and he just wanted to stick to oral pain medications. Baclofen was started for Hiccups 10/01, initially 5 mg TID with some improvement noted since titration up to 10 mg TID,
reduced back to 5 mg d/t oversedation. Constipation likely contributing to hiccups as well. Constipation in the setting of narcotic use and decreased mobility. Continue aggressive bowel regimen (patient intermittently refused). Reviewed x-ray of
the abdomen and some abnormalities but clinically improved. Hiccups likely exacerbated by GERD, PPI was continued and Maalox AC was added. Medically stable, patient was discharged home with outpatient follow up recommendations.
Discharge Plan
-
Patient Disposition: Home with Home Care
Discharge Diagnosis/Procedures: Leukopenia, Neutropenia, Anemia, Esophageal Cancer on Chemotherapy, E coli Bacteremia, GI bleed, Acute Blood Loss Anemia, history embolic stroke, Hyponatremia,
Condition: Fair
Diet: Low Residue
Additional Diets: maintain 40 oz fluid restriction, adhere to neutropenic diet precautions until neutropenia resolves, (neutropenic diet along with general neutropenic precaution instructions attached)
Activity: As tolerated
Driving Restrictions: Not until seen by your Dr
Bathing Restrictions: None
Blood Work: Please repeat CBC with differential and BMP with primary care provider or Hematology in 1 week of discharge.
Activity Restrictions/Additional Instructions:
Please follow up with primary care provider and Hematology in 1 week of discharge.
Home Medications
oxycodone 30 mg tablet,oral ONLY (not feeding tubes) 30 mg PO Q4HPRN PRN breakthrough pain
Fluorouracil Pump 1 dose IV Q2W Autoimmune Disorder
albuterol sulfate 90 mcg/actuation aerosol inhaler 2 puff inhalation Q4HPRN PRN WHEEZING/SOB
ondansetron HCl 4 mg tablet 4 mg PO Q6HPRN PRN NAUSEA
oxycodone myristate 36 mg capsule sprinkle extended release 12hr(DON'T CRUSH) (Xtampza ER) 36 mg PO Q8 Pain
prochlorperazine maleate 10 mg tablet 10 mg PO Q6HPRN PRN NAUSEA
sofosbuvir 400 mg-velpatasvir 100 mg-voxilaprevir 100 mg tablet (Vosevi) 1 tab PO DAILY@1500 HEPATITIS C
testosterone enanthate 200 mg/mL intramuscular oil 100 mg IM Q2W Hormonal Agent
thyroid (pork) 30 mg tablet ([place] Thyroid) 60 mg PO DAILY@0700 Thyroid
furosemide 20 mg tablet (Lasix) 20 mg PO DAILY for peripheral lower extremity edema
bisacodyl 5 mg tablet 5 mg PO DAILYPRN PRN constipation
New/Changed Medications
aluminum-mag hydroxide-simethicone 200 mg-200 mg-20 mg/5 mL oral susp (Antacid-Antigas) 30 ml PO TIDPRN PRN Heartburn/indigestion/GERD
aspirin 81 mg chewable tablet (Children's Aspirin) 81 mg PO DAILY for stroke risk reduction
atorvastatin 20 mg tablet 20 mg PO QPM for stroke risk reduction, dose reduced from original home dose 40 mg to 20 mg in order to minimize medication interactions
baclofen 5 mg tablet 5 mg PO TID for hiccups
ciprofloxacin HCl 500 mg tablet 500 mg PO BID 5 days for E. coli bacteremia
docusate sodium 100 mg capsule (Colace) 100 mg PO BID opiate induced constipation prophylaxis, dose increased to twice a day from daily
fentanyl 75 mcg/hr transdermal patch 1 patch transdermal Q72H 9 day supply prescribed for pain control (replacing original home 25 mcg/hr patch for better pain control)
omeprazole 40 mg capsule,delayed release 40 mg PO BID to reduce risk GI malignancy bleed
polyethylene glycol 3350 17 gram oral powder packet (HealthyLax) 17 g PO DAILYPRN PRN constipation
potassium chloride 20 mEq oral packet 20 meq PO DAILY potassium electrolyte supplementation, to reduce/prevent recurrence hypokalemia
sennosides 8.6 mg tablet (Senna Laxative) 8.6 mg PO BID opiate induced constipation prophylaxis

Eliquis has been discontinued due to high risk recurrence GI malignancy bleed. Please discuss with primary care provider and/or other healthcare provider involved in your care before considering to resume.
Please take medications as prescribed/recommended and follow up with primary care provider and/or other healthcare provider involved in your care for refills and/or further adjustment to your medication regimen as necessary.
Instructions: Neutropenia (DC)
Referrals:
Khalif Castellon DO [Active] - in one week
Noble Goodwin PA-C [Family Provider] - in one week
Prescriptions:
New
sennosides [Senna Laxative] 8.6 mg Tablet
8.6 mg PO BID 30 Days Qty: 60 0RF
Rx Instructions:
hold if diarrhea or regular bowel movements
atorvastatin 20 mg Tablet
20 mg PO QPM 30 Days Qty: 30 0RF
ciprofloxacin HCl 500 mg Tablet
500 mg PO BID 5 Days Qty: 10 0RF
potassium chloride 20 mEq Packet
20 meq PO DAILY 30 Days Qty: 30 0RF
aspirin [Children's Aspirin] 81 mg Tablet,Chewable
81 mg PO DAILY 30 Days Qty: 30 0RF
alum-mag hydroxide-simeth [Antacid-Antigas] 200-200-20 mg/5 mL Suspension
30 ml PO TIDPRN PRN (Reason: Heartburn/indigestion/GERD) Qty: 3000 0RF
fentanyl 75 mcg/hr Patch 72 Hour
1 patch transdermal Q72H Qty: 3 0RF
baclofen 5 mg Tablet
5 mg PO TID 30 Days Qty: 90 0RF
polyethylene glycol 3350 [HealthyLax] 17 gram Powder In Packet
17 g PO DAILYPRN PRN (Reason: constipation) Qty: 30 0RF
omeprazole 40 mg capsule,delayed release(DR/EC)
40 mg PO BID 30 Days Qty: 60 0RF
Continued
oxycodone 30 mg Tablet, Oral Only
30 mg PO Q4HPRN PRN (Reason: breakthrough pain)
Patient Comments:
09/23/2023: last filled 09/22/23, 30 tabs for 10 days from [place]
ondansetron HCl 4 mg tablet
4 mg PO Q6HPRN PRN (Reason: NAUSEA)
prochlorperazine maleate 10 mg tablet
10 mg PO Q6HPRN PRN (Reason: NAUSEA)
albuterol sulfate 90 mcg/actuation HFA aerosol inhaler
2 puff INHALATION Q4HPRN PRN (Reason: WHEEZING/SOB)
thyroid (pork) [[place] Thyroid] 30 mg tablet
60 mg PO DAILY@0700
Xtampza ER 36 mg cap,sprinkl,ER12hr(DONT CRUSH)
36 mg PO Q8
Patient Comments:
09/23/2023: last filled 09/20/23, 90 tabs for 30 days from [facility]
Vosevi 400-100-100 mg tablet
1 tab PO DAILY@1500
testosterone enanthate 200 mg/mL oil
100 mg IM Q2W
Fluorouracil Pump
1 dose IV Q2W
Patient Comments:
09/23/2023: 5-FU 2600mg/m2* BSA 1.99= 5174mg IV over 24 hrs every 2 weeks
furosemide [Lasix] 20 mg tablet
20 mg PO DAILY Qty: 30 0RF
bisacodyl 5 mg Tablet
5 mg PO DAILYPRN PRN (Reason: constipation)
Changed
docusate sodium [Colace] 100 mg Capsule
100 mg PO BID Qty: 0 0RF
Discontinued
fentanyl 25 mcg/hr patch 72 hour
25 mcg transdermal Q3D
Patient Comments:
09/23/2023: last filled 09/21/23, 10 patches for 30 days from [place], started 09/22/23
Rx Instructions:
CURRENT PATCH PLACED 09/22/23
atorvastatin 40 mg Tablet
40 mg PO QPM 30 Days Qty: 30 0RF
Eliquis 5 mg tablet
5 mg PO BID Qty: 60 0RF
Discharge Orders:
Discharge Patient (As Directed); Ordered 10/05/23
Ordered By: Xochilt Olivia
Discharge Date and Time
Discharge Date/Time: 10/05/23 17:21
Print Language: BURKINAN
== END 2023-10-05 17:21 | disposition home health service (06) | DRG 377 ==
LOC: 3 WEST ACU 14:29
PROVIDERS: Clinical Nurse Specialist Family Health; Emergency Medicine; Nurse Practitioner Family; Student in an Organized Health Care Education/Training Program; ADMITTING PHYSICIAN Hospitalist; ATTENDING PHYSICIAN Internal Medicine; CONSULT PHYSICIAN Internal Medicine; CONSULT PHYSICIAN Internal Medicine Hematology & Oncology; CONSULT PHYSICIAN Student in an Organized Health Care Education/Training Program; EMERGENCY PHYSICIAN Emergency Medicine; FAMILY PHYSICIAN Physician Assistant Medical
PROC: 30233N1 Transfusion of Nonautologous Red Blood Cells into Peripheral Vein, Percutaneous Approach (ICD-10-PCS; 2023-09-26)
DX: K92.2 Gastrointestinal hemorrhage, unspecified (principal); E43 Unspecified severe protein-calorie malnutrition; E87.1 Hypo-osmolality and hyponatremia; D68.32 Hemorrhagic disorder due to extrinsic circulating anticoagulants; D62 Acute posthemorrhagic anemia; I47.19 Other supraventricular tachycardia; F11.20 Opioid dependence, uncomplicated; R78.81 Bacteremia; C16.0 Malignant neoplasm of cardia; E87.6 Hypokalemia; T45.1X5A Adverse effect of antineoplastic and immunosuppressive drugs, initial encounter; E83.42 Hypomagnesemia; B19.20 Unspecified viral hepatitis C without hepatic coma; G89.29 Other chronic pain; E03.9 Hypothyroidism, unspecified; Z68.20 Body mass index [BMI] 20.0-20.9, adult; Z86.73 Personal history of transient ischemic attack (TIA), and cerebral infarction without residual deficits
CPT/HCPCS: 71046; 74019; 80048; 80053; 82533; 83735; 83880; 83935; 84100; 84295; 84300; 85014; 85018; 85025; 85027; 86850; 86900; 86901; 86920; 87040; 87149; 87186; 87205; 93005; 96374; 97162; 97165; 99285; J1447; P9016

== ENCOUNTER → 2023-10-17 08:58 | Outpatient (REF) | payer OTHER, SELFPAY | LOC: RSP 08:58 | PROVIDERS: ATTENDING PHYSICIAN Nurse Practitioner Family; FAMILY PHYSICIAN Physician Assistant Medical; REFERRING PHYSICIAN Internal Medicine Cardiovascular Disease | DX: G47.33 Obstructive sleep apnea (adult) (pediatric) (principal); C15.9 Malignant neoplasm of esophagus, unspecified; R06.02 Shortness of breath | CPT/HCPCS: 94727; 94729; 94010 ==

== ENCOUNTER 2023-10-22 15:32 | Emergency (ER) | payer OTHER, SELFPAY ==
[2023-10-22 15:48] VITALS: BP 122/95
--- NOTE | 2023-10-22 16:06 | ED.GENMED ---
History of Present Illness
General
Chief Complaint: Dehydration Symptoms
Source: patient
Exam Limitations: none
Time Seen by Provider: 10/22/23 15:51
Nursing documentation reviewed up to this point in time: agreed with
Travel History
Have you had any contact with someone who has COVID-19?: No
Do you have any symptoms of coronavirus? Fever > 100 degrees, chills, cough, shortness of breath, sore throat, loss of taste or smell, muscle aches, or headache?: No
History of Present Illness
History of Present Illness:
Patient sent to ED by oncology for IV hydration. He is currently being treated for esophageal and stomach CA. New diagnosis. He has had 2 chemo treatment, last 10/12. Family reports CVA after Chemo 09/22. Also treated for anema from bleeding
stomach tumor and sepsis during that hospitalization. Now reports sores in mouth and throat. Given medication by Dr. Caballero (antifungal?) last week, he reports minimal improvement. Has had less than 3oz of fluid in the past 24 hours, advised by
onc to come to ED for hydration. He is scheduled for rehydration at the infusion center on Monday.
Past History
Past History
ED Past Medical History: Arrthythmia (atrial tachycardia), Asthma, Cancer (esophageal, stomach 09/2023), Hypothyroidism and Other (Hemochromatosis, Sleep apnea, Hep C)
ED Past Surgical History: Other (laparoscopy 09/2023, port placement 09/2023)
Social History
Tobacco: Non-smoker
Alcohol: Former (age 43)
Drug: None
Personal:
Living: with family
Family History
Family History: Other (reviewed and non-contributory)
Review of Systems
Review of Systems
Allergies reviewed?: Yes
All Other Systems: ROS reviewed and negative except as documented in HPI and ROS
Constitutional: Reports fatigue
EENT: Reports other (mouth and esophageal sores)
Respiratory: Reports no symptoms
Cardiac: Reports no symptoms
ABD/GI: Reports other (unable to eat or drink due to mouth sores.)
: Reports other (decreased output)
Musculoskeletal: Reports no symptoms
Skin: Reports no symptoms
Neurological: Reports weakness
Psychiatric: Reports no symptoms
Phy Exam
General Physical Exam
General Presentation: moderate distress
General age: appears older than age
General Skin: dry and ashen
General Habitus: cachetic and frail
General Mental: alert
General Hydration: dry mucous membranes and poor skin turgor
Cardiovascular Exam
Cardiovascular Exam: regular rate/rhythm
Pulmonary Exam
Pulmonary Exam: lungs clear and no respiratory distress
Gastrointestinal Exam
Gastrointestinal Exam: normal bowel sounds, non tender, soft, no organomegaly, non distended and no cva tenderness
Musculoskeletal Exam
Musculoskeletal Exam: full ROM and neuro vasc intact
Skin Exam
Skin Exam: warm/dry, no rash and pallor
Psychiatric Exam
Psychiatric Exam: normal mood/affect
Course
Orders/Labs/Results
Orders:
Orders
10/22/23 16:05
0.9% Sodium Chloride 1000 ml [Nss] 1,000 ml IV BOLUS
10/22/23 16:27
Complete Blood Count/With Diff Urgent
Comprehensive Metabolic Panel Urgent
Magnesium Urgent
Comment: ADD ON
10/22/23 17:29
Add On- LAB Urgent
Tests Added?: Magnesium
10/22/23 17:31
Potassium Chloride 10% Elixir [KCl Elixir] 40 meq PO NOW STA
Viscous Lidocaine 2% [Xylocaine Viscous Cup] 15 ml PO NOW STA
10/22/23 17:38
Potassium Chloride [KCl] 40 meq 0.9% Sodium Chloride 250 ml [Nss] 250 ml IV NOW
10/22/23 20:03
0.9% Sodium Chloride 1000 ml [Nss] 1,000 ml IV BOLUS
Abnormal Lab Results
10/22/23
16:27
WBC 0.2 L* 10^3/uL
(4.8-10.8)
RBC 2.65 L 10^6/uL
(4.70-6.10)
Hgb 7.4 L g/dL
(13.0-18.0)
Hct 21.2 L %
(39.0-52.0)
RDW 19.1 H %
(11.5-14.5)
Plt Count 106 L 10^3/uL
(130-400)
Absolute Neuts (auto) 0.0 L* 10^3/uL
(1.4-6.5)
Absolute Lymphs (auto) 0.1 L 10^3/uL
(1.2-3.4)
Absolute Monos (auto) 0.0 L 10^3/uL
(0.1-0.6)
Immature Gran % 6.3 H %
(0-0.5)
Neutrophils % 6.2 L %
(42.2-75.2)
Lymphocytes % 75.0 H %
(20.5-51.1)
Monocytes % 12.5 H %
(1.7-9.3)
Sodium 128 L mmol/L
(135-145)
Potassium 2.8 L mmol/L
(3.5-5.1)
Chloride 89 L mmol/L
(98-107)
Carbon Dioxide 35 H mmol/L
(22-30)
BUN 45 H mg/dl
(9-20)
Calcium 8.1 L mg/dl
(8.4-10.2)
Total Protein 5.4 L g/dl
(6.3-8.2)
Albumin 2.5 L g/dl
(3.5-5.0)
10/22/23 16:27
10/22/23 16:27
Vital Signs
Initial and Last Documented VS:
Initial Vital Signs
Temp Pulse Resp BP Pulse Ox
98.3 F 82 18 122/95 89
10/22/23 15:48 10/22/23 15:48 10/22/23 15:48 10/22/23 15:48 10/22/23 15:48
Last Documented Vital Signs
Temp Pulse Resp BP Pulse Ox
98.3 F 76 13 95/82 99
10/22/23 15:48 10/22/23 22:15 10/22/23 20:30 10/22/23 22:00 10/22/23 22:15
*Critical Care Note
Total Time (30-74mins, 75-104mins- exclusive of procedures): Not Applicable
Update Note
Update Note:
Patient to ED for IVF. Currently receiving treatment for esophageal and stomach CA. Complains of sores in his throat and mouth and has been unable to swallow. At infusion center on for IVF and was schedule to return to infusion center on
for additional fluids. Sent by oncology today because he is still unable to swallow. Labs reviewed. Hypokalemic at 2.8 Given K rider in ED. Unable to swallow KCL elixer. 2L NSS infused. Recommended admission due to electrolyte
deficiencies but he has refused. Discussed risks with patient and spouse but he continues to refuse. Dr. Gan notified via [employer]. Patient has signed AMA form and was taken home by spouse. Will follow up with Dr. Caballero in AM
ED Attending Note
-
Portions of this chart may have been created with voice recognition software.� Occasional wrong word or��sound alike� substitutions may have occurred due to the inherent limitations of voice recognition software.
Discharge Plan
Departure
Patient Disposition: Against Medical Advice
Date of Disposition: 10/22/23
Time of Disposition: 22:21
Patient with high blood pressure during this ER visit?: No
Condition: Fair
Covid-19: Not Applicable
Discharge Problem:
Anemia, Hypokalemia, Acute dehydration, Leukopenia
Instructions: Hypokalemia, Dehydration, Adult (DC)
Prescriptions:
No Action
oxycodone 30 mg Tablet, Oral Only
30 mg PO Q4HPRN PRN (Reason: breakthrough pain)
Patient Comments:
10/22/2023: last filled 10/06/23, 180 tabs for 30 days from [place]
ondansetron HCl 4 mg tablet
4 mg PO Q6HPRN PRN (Reason: NAUSEA)
prochlorperazine maleate 10 mg tablet
10 mg PO Q6HPRN PRN (Reason: NAUSEA)
albuterol sulfate 90 mcg/actuation HFA aerosol inhaler
2 puff INHALATION R Q4HPRN PRN (Reason: WHEEZING/SOB)
thyroid (pork) [[place] Thyroid] 30 mg tablet
60 mg PO DAILY@0700
Xtampza ER 36 mg cap,sprinkl,ER12hr(DONT CRUSH)
36 mg PO Q8
Patient Comments:
10/22/2023: last filled 10/17/23, 90 tabs for 30 days from [facility]
testosterone enanthate 200 mg/mL oil
100 mg IM Q2W
Patient Comments:
10/22/2023: Due today
Fluorouracil Pump
1 dose IV Q2W
Patient Comments:
09/23/2023: 5-FU 2600mg/m2* BSA 1.99= 5174mg IV over 24 hrs every 2 weeks
furosemide [Lasix] 20 mg tablet
20 mg PO DAILY Qty: 30 0RF
bisacodyl 5 mg Tablet
5 mg PO DAILYPRN PRN (Reason: constipation)
atorvastatin 20 mg Tablet
20 mg PO QPM 30 Days Qty: 30 0RF
alum-mag hydroxide-simeth [Antacid-Antigas] 200-200-20 mg/5 mL Suspension
30 ml PO TIDPRN PRN (Reason: Heartburn/indigestion/GERD) Qty: 3000 0RF
fentanyl 75 mcg/hr Patch 72 Hour
1 patch transdermal Q72H Qty: 3 0RF
Patient Comments:
10/22/2023: last filled 10/06/23, 10 patches for 30 days from [place]
baclofen 5 mg Tablet
5 mg PO TID 30 Days Qty: 90 0RF
sucralfate 100 mg/mL suspension
10 ml PO TID PRN (Reason: swallowing difficulty)
dexamethasone 0.5 mg/5 mL solution
1 mg PO TID
potassium chloride 20 mEq tablet,ER particles/crystals
20 meq PO DAILY
Eliquis 2.5 mg tablet
2.5 mg PO BID
Magic Mouthwash
2 tsp PO Q4H PRN (Reason: mouth pain)
Referrals:
Khalif Caballero, DO [Active] - Tomorrow
Noble Goodwin PA-C [Family Provider] -
Interventions
Interventions:
*Risk Screen - Suicide Last Done: 10/22/23 16:16
*General Assessment Last Done: 10/22/23 16:16
*Neglect/Abuse Screening Last Done: 10/22/23 16:16
ED- Fall Risk Assessment Last Done: 10/22/23 16:16
*ED COVID-19 Vaccine History Last Done: 10/22/23 16:02
*Nursing Disposition Last Done: 10/22/23 23:02
ED- Cardiac Assessment Last Done: 10/22/23 16:16
ED- Neurological Assessment Last Done: 10/22/23 16:16
ED- Pulmonary Assessment Last Done: 10/22/23 16:16
Discharge Date and Time
Discharge Date/Time: 10/22/23 23:04
Print Language: PERUVIAN
[2023-10-22 16:16] VITALS: BMI 19.8
[2023-10-22 16:20] VITALS: BP 101/85
[2023-10-22] MEDS: NSS 1000 IV ×2 (16:32→20:30)
[2023-10-22 16:39] LABS: % Immature Granulocytes 6.3 % (0-0.5); % Monocytes 12.5 % (1.7-9.3); % Neutrophils 6.2 % (42.2-75.2); Absolute Lymphocytes 0.1 10^3/uL (1.2-3.4); Hematocrit 21.2 % (39.0-52.0); Hemoglobin 7.4 g/dL (13.0-18.0); Mean Corp Hgb Conc. 34.9 g/dL (33.0-37.0); Mean Corpuscular Hgb 27.9 pg (27.0-31.0); Mean Platelet Volume 10.1 fL (7.4-10.4); Nucleated Red Blood Cells % 0 % (-); Platelet Count 106 10^3/uL (130-400); Red Blood Cell Count 2.65 10^6/uL (4.70-6.10); Red Cell Dist. Width 19.1 % (11.5-14.5)
[2023-10-22 16:52] LABS: ALT (SGPT) 15 U/L (0-50); AST (SGOT) 27 U/L (17-59); Albumin 2.5 g/dl (3.5-5.0); Alkaline Phosphatase 62 U/L (38-126); Blood Urea Nitrogen 45 mg/dl (9-20); Calcium 8.1 mg/dl (8.4-10.2); Carbon Dioxide 35 mmol/L (22-30); Chloride 89 mmol/L (98-107); Estimated Creatinine Clearance 59 ml/min; Glucose 98 mg/dl (70-99); Potassium 2.8 mmol/L (3.5-5.1); Sodium 128 mmol/L (135-145); Total Bilirubin 0.6 mg/dl (0.2-1.3); Total Protein 5.4 g/dl (6.3-8.2); eGFR > 60.00
[2023-10-22 17:00] VITALS: BP 96/63
[2023-10-22 17:20] LABS: White Blood Cell Count 0.2 10^3/uL (4.8-10.8)
[2023-10-22] MEDS: KCL 270 MEQ IV (17:56)
[2023-10-22] MEDS: XYLOCAINE VISCOUS CUP 15 ML PO (17:56)
[2023-10-22 18:00] VITALS: BP 116/89
[2023-10-22 18:35] LABS: Magnesium 1.8 mg/dl (1.6-2.3)
[2023-10-22 22:00] VITALS: BP 95/82
== END 2023-10-22 23:04 | disposition left against medical advice (07) ==
LOC: EMR 15:32
PROVIDERS: Nurse Practitioner; EMERGENCY PHYSICIAN Emergency Medicine; FAMILY PHYSICIAN Physician Assistant Medical
DX: D64.9 Anemia, unspecified (principal); E87.6 Hypokalemia; E86.0 Dehydration; D72.819 Decreased white blood cell count, unspecified; J45.909 Unspecified asthma, uncomplicated; E03.9 Hypothyroidism, unspecified
CPT/HCPCS: 99283; 80053; 83735; 85025

== ENCOUNTER 2023-10-23 17:07 | Inpatient (IN) | payer OTHER, SELFPAY ==
[2023-10-23] VITALS (16 sets, daily range): BP systolic 89–121; BP diastolic 66–93; BMI 19.8; BMI 18.6; BMI 18.8
[2023-10-23] MEDS: VENTOLIN NEBULES 2.5 MG INH (11:17)
[2023-10-23 11:48] LABS: % Immature Granulocytes 5.9 % (0-0.5); % Lymphocytes 76.5 % (20.5-51.1); % Monocytes 17.6 % (1.7-9.3); Absolute Lymphocytes 0.1 10^3/uL (1.2-3.4); Hematocrit 22.4 % (39.0-52.0); Hemoglobin 7.7 g/dL (13.0-18.0); Mean Corp Hgb Conc. 34.4 g/dL (33.0-37.0); Mean Corpuscular Hgb 28.2 pg (27.0-31.0); Mean Corpuscular Volume 82.1 fL (80.0-94.0); Mean Platelet Volume 10.7 fL (7.4-10.4); Nucleated Red Blood Cells % 0 % (-); Platelet Count 88 10^3/uL (130-400); Red Blood Cell Count 2.73 10^6/uL (4.70-6.10); Red Cell Dist. Width 19.6 % (11.5-14.5)
[2023-10-23 11:58] LABS: Lactic Acid 1.5 mmol/L (0.7-2.0)
[2023-10-23] MEDS: NSS 500 IV (12:00)
[2023-10-23] MEDS: OFIRMEV 100 IV (12:01)
[2023-10-23 12:06] LABS: White Blood Cell Count 0.2 10^3/uL (4.8-10.8)
[2023-10-23 12:13] LABS: ALT (SGPT) 17 U/L (0-50); AST (SGOT) 36 U/L (17-59); Albumin 2.5 g/dl (3.5-5.0); Alkaline Phosphatase 74 U/L (38-126); Blood Urea Nitrogen 49 mg/dl (9-20); Calcium 7.8 mg/dl (8.4-10.2); Carbon Dioxide 35 mmol/L (22-30); Chloride 94 mmol/L (98-107); Estimated Creatinine Clearance 51 ml/min; Glucose 73 mg/dl (70-99); Potassium 3.3 mmol/L (3.5-5.1); Sodium 132 mmol/L (135-145); Total Bilirubin 0.6 mg/dl (0.2-1.3); Total Protein 5.4 g/dl (6.3-8.2); eGFR 56.48
[2023-10-23 13:02] LABS: Urine Albumin Trace (Neg - Trace); Urine Bilirubin Negative (Negative); Urine Character Clear (Clear); Urine Color Yellow; Urine Glucose Negative (Negative); Urine Ketone Negative (Negative); Urine Leukocyte Negative (Negative); Urine Nitrite Negative (Negative); Urine Occult Blood Negative (Negative); Urine Specific Gravity 1.015 (<1.030); Urine Urobilinogen Negative (Neg - 1+)
--- NOTE | 2023-10-23 13:19 | ED.GENMED ---
History of Present Illness
General
Chief Complaint: Weakness
Source: patient and family
Exam Limitations: none
Time Seen by Provider: 10/23/23 10:52
Nursing documentation reviewed up to this point in time: agreed with
Travel History
Have you had any contact with someone who has COVID-19?: No
Do you have any symptoms of coronavirus? Fever > 100 degrees, chills, cough, shortness of breath, sore throat, loss of taste or smell, muscle aches, or headache?: No
History of Present Illness
History of Present Illness:
Patient with history of esophageal cancer, presents to ED secondary to worsening generalized weakness over the past few days. Patient was seen and treated in ED yesterday secondary to dehydration and received IV fluids prior to discharge. Since he
has been home, patient still has not been able to eat. Denies fever or chills. Denies difficulty with swallowing. Denies nausea, vomiting, or diarrhea. Denies chest pain or shortness of breath. Denies coughing.
Past History
Past History
ED Past Medical History: Arrthythmia (atrial tachycardia), Asthma, Cancer (esophageal, stomach 09/2023), Hypothyroidism and Other (Hemochromatosis, Sleep apnea, Hep C)
ED Past Surgical History: Other (laparoscopy 09/2023, port placement 09/2023)
Social History
Tobacco: Non-smoker
Alcohol: Former (age 43)
Drug: None
Personal:
Living: with family
Family History
Family History: Other (reviewed and non-contributory)
Review of Systems
Review of Systems
Allergies reviewed?: Yes
All Other Systems: ROS reviewed and negative except as documented in HPI and ROS
Constitutional: Reports no symptoms
EENT: Reports no symptoms
Respiratory: Reports trouble breathing
Cardiac: Reports no symptoms
ABD/GI: Reports no symptoms
Musculoskeletal: Reports no symptoms
Skin: Reports no symptoms
Neurological: Reports weakness; Denies dizzy
Phy Exam
Physical Exam
Physical Exam:
Physical Exam
General: moderate distress, acutely ill. ill appearing. afebrile. cachetic.
Head: nc/at. eomi
Neck: supple. no meningeal signs.
Heart: s1/s2 regular rate and rhythm, no murmur. equal radial pulses.
Lungs: mild respiratory distress. diminished breath sounds bilaterally
Abdomen: normal bowel sounds. not tender.
Neuro: alert and oriented x 3. no focal neurological deficits
Skin: no rash
Psychiatric: well kept. interactive and cooperative
Extremities: no edema. no calf tenderness.
Course
Orders/Labs/Results
Orders:
Orders
10/23/23 11:09
0.9% Sodium Chloride 500 ml [Nss] 500 ml IV BOLUS
Albuterol Nebs [Ventolin Nebules] 2.5 mg INH R NOW STA
CR Chest Portable - 1 View Urgent
Comment:
Reason For Exam: sob/hypoxia
Reason Study Needs to be Portable: Patient Unstable
10/23/23 11:15
Blood Culture Q30M
SYLVIE Source: Blood/Venous
Specimen Description:
10/23/23 11:16
Acetaminophen 1000MG/100Ml [Ofirmev] 1,000 mg in 100 ml IV ONCE
Acetaminophen IV Indication:: ED Narcotic Naive Pt-ONCE
10/23/23 11:38
Complete Blood Count/With Diff Urgent
Comprehensive Metabolic Panel Urgent
Lactic Acid Q4H
Comment: CANCEL 2nd LACTIC ACID IF 1st LACTIC ACID IS LESS THAN 2
Magnesium Urgent
NT-proBNP Urgent
Comment: ADD ON
10/23/23 11:45
Blood Culture Q30M
SYLVIE Source: Blood/Venous
Specimen Description:
10/23/23 12:54
Urinalysis Reflex To Culture Urgent
Date Specimen was Collected: 10/23/23
Time Specimen was Collected: 11:22
10/23/23 Dinner
Regular
At Your Request: Limited Participation
10/23/23 15:49
Add On- LAB Routine
Tests Added?: P CHF BNP
10/23/23 16:08
Admit/Transfer Patient As Directed
Co-Sign Provider:
Level of Care: Inpatient admission
Assign to:: IMU- Intermediate Care
Physician / Group: Sherita
Diagnosis: Hypoxia
Reason for Hospitalization: Above
Expected length of stay greater than two midnights?: Yes
ELOS- Estimated Length of Stay in days: 2
I certify the patient meets the requirements for IP care: Yes
10/23/23 16:16
Code Status As Directed
Resuscitation Status: Full Code
10/23/23 19:44
0.9% Sodium Chloride 1000 ml [Nss] 1,000 ml IV 100 mls/hr
Albuterol [ProAIR HFA INHALER] 2 puff INH R Q4HPRN PRN
Atorvastatin [Lipitor] 20 mg PO QPM
Baclofen [Lioresal] 5 mg PO TIDPRN PRN
Ondansetron Injectable [Zofran] 4 mg IV Q6HPRN PRN
Sucralfate Suspension [Carafate Suspension] 1 gm PO TIDPRN PRN
10/23/23 19:44
Fentanyl Patch Confirmation BID@0700,1900
Speech Therapy Eval & Treat Routine
10/23/23 19:54
Mag&Al/Sim/Diphenhyd/Lidocaine [First-Mouthwash Blm Suspension] 5 ml PO Q4HPRN PRN
10/23/23 20:00
Enoxaparin Sodium [Lovenox] 60 mg SC Q12H
FentaNYL 75 MCG/HR PATCH [Duragesic 75 Mcg/Hr Patch] 1 patch TRANSDERM Q72H
Oxycodone [Roxicodone] 30 mg PO Q4
Potassium Chloride [KCl] 20 meq PO BID
REMOVE fentaNYL PATCH [Remove Duragesic Patch] See Dose Instructions REMOVE Q72H
10/23/23 21:14
ABG [Arterial Blood Gas] Routine
%Oxygen/Room Air: 50%
10/23/23 22:00
Dexamethasone [Decadron] 1 mg PO TID
10/24/23 03:34
CBC/With Diff [Complete Blood Count/With Diff] IN AM
CMP [Comprehensive Metabolic Panel] IN AM
10/24/23 06:00
Thyroid [[place] Thyroid] 60 mg PO DAILY@0600
Abnormal Lab Results
10/23/23
11:38
WBC 0.2 L* 10^3/uL
(4.8-10.8)
RBC 2.73 L 10^6/uL
(4.70-6.10)
Hgb 7.7 L g/dL
(13.0-18.0)
Hct 22.4 L %
(39.0-52.0)
RDW 19.6 H %
(11.5-14.5)
Plt Count 88 L 10^3/uL
(130-400)
MPV 10.7 H fL
(7.4-10.4)
Absolute Neuts (auto) 0.0 L* 10^3/uL
(1.4-6.5)
Absolute Lymphs (auto) 0.1 L 10^3/uL
(1.2-3.4)
Absolute Monos (auto) 0.0 L 10^3/uL
(0.1-0.6)
Immature Gran % 5.9 H %
(0-0.5)
Neutrophils % 0.0 L %
(42.2-75.2)
Lymphocytes % 76.5 H %
(20.5-51.1)
Monocytes % 17.6 H %
(1.7-9.3)
Sodium 132 L mmol/L
(135-145)
Potassium 3.3 L mmol/L
(3.5-5.1)
Chloride 94 L mmol/L
(98-107)
Carbon Dioxide 35 H mmol/L
(22-30)
BUN 49 H mg/dl
(9-20)
Creatinine 1.4 H mg/dL
(0.7-1.3)
Calcium 7.8 L mg/dl
(8.4-10.2)
Total Protein 5.4 L g/dl
(6.3-8.2)
Albumin 2.5 L g/dl
(3.5-5.0)
10/23/23 11:38
10/23/23 11:38
Vital Signs
Initial and Last Documented VS:
Initial Vital Signs
Temp Pulse Resp BP Pulse Ox
98.1 F 88 20 89/69 75
10/23/23 10:38 10/23/23 10:38 10/23/23 10:38 10/23/23 10:38 10/23/23 10:38
Last Documented Vital Signs
Temp Pulse Resp BP Pulse Ox
97.9 F 137 9 87/73 92
10/24/23 04:33 10/24/23 06:22 10/24/23 06:22 10/24/23 06:22 10/24/23 06:22
MDM/Problems Addressed
MDM/Problems Addressed:
Pt with hypoxia, requiring venturi mask, with improvement. Doubt PE, as patient has been on Eliquis until yesterday.
CXR: no acute findings.
History/exam concerning for moderate dehydration. Will continue hydration.
*Critical Care Note
Total Time (30-74mins, 75-104mins- exclusive of procedures): Not Applicable
ED Attending Note
-
Portions of this chart may have been created with voice recognition software.� Occasional wrong word or��sound alike� substitutions may have occurred due to the inherent limitations of voice recognition software.
Discharge Plan
Departure
Patient Disposition: Admit
Date of Disposition: 10/23/23
Time of Disposition: 13:31
Admit to: IMU
Presentation/result/management discussed w/ accepting MD/DO: Hospitalist
Discharge Problem:
Weakness, Dehydration, Acute renal failure superimposed on chronic kidney disease, Hypoxia
Interventions
Interventions:
*Risk Screen - Suicide Last Done: 10/23/23 19:54
*General Assessment Last Done: 10/23/23 10:38
*Neglect/Abuse Screening Last Done: 10/23/23 10:38
ED- Fall Risk Assessment Last Done: 10/23/23 11:15
*ED COVID-19 Vaccine History Last Done: 10/23/23 19:54
*Nursing Disposition Last Done: 10/23/23 19:50
ED- Cardiac Assessment Last Done: 10/23/23 11:15
ED- Neurological Assessment Last Done: 10/23/23 11:15
ED- Pulmonary Assessment Last Done: 10/23/23 11:15
Discharge Date and Time
Discharge Date/Time: 10/23/23 19:51
--- NOTE | 2023-10-23 16:24 | HPS.HSE ---
Family Physician
-
Family Physician: YAMILKA PAPPAS PA-C
Chief Complaint
-
Generalized fatigue and weakness
History of Present Illness
Patient is a 63 years old male with complicated medical history and comorbidities including esophageal cancer on chemotherapy, history embolic CVA with intracardiac clot, paroxysmal atrial tachycardia who presents to the emergency room for severe
fatigue. Patient has low oral intake and not able to keep any oral medications given nausea and vomiting. He was seen in the emergency room day prior with IV hydration, although referred back to the emergency room by oncologist today given
persistent symptoms. While in emergency room patient found to be hypoxic with pulse ox down to 70s on room air. Patient is not on home oxygen prior to this admission. He was placed on Ventimask at 50% with improved distress and currently with
saturation at around 90-94%. Patient denies any chest pain, hemoptysis. His main complaint is being generally weak and short of breath on exertion.
Medical History
Past Medical History
Past Medical History: Reports Arrhythmia (Paroxysmal atrial tachycardia), Cancer (Esophageal cancer), CVA (Embolic), Hypothyroidism and Other (Hepatitis C); Denies IDDM or NIDDM
Past Surgical History: Reports None
Social History
Tobacco: Non-smoker
Alcohol: None
Personal:
Living: With Family
Family History
Family History: Not pertinent
Allergies / Home Medications
Allergies reflects when Allergies were last updated in [facility].
Home Medications with original date entered in [facility]
Allergy/Medication List:
Allergies
Allergy/AdvReac Type Severity Reaction Status Date / Time
shellfish derived Allergy Hives Verified 10/23/23 10:53
Home Medications
oxycodone 30 mg tablet,oral ONLY (not feeding tubes) 30 mg PO Q4 02/04/22
Fluorouracil Pump 1 dose IV Q2W Autoimmune Disorder 09/23/23
albuterol sulfate 90 mcg/actuation aerosol inhaler 2 puff inhalation R Q4HPRN PRN WHEEZING/SOB 09/23/23
ondansetron HCl 4 mg tablet 4 mg PO Q6HPRN PRN NAUSEA 09/23/23
oxycodone myristate 36 mg capsule sprinkle extended release 12hr(DON'T CRUSH) (Xtampza ER) 36 mg PO Q8 Pain 09/23/23
prochlorperazine maleate 10 mg tablet 10 mg PO Q6HPRN PRN NAUSEA 09/23/23
thyroid (pork) 30 mg tablet ([place] Thyroid) 60 mg PO DAILY@0700 Thyroid 09/23/23
furosemide 20 mg tablet (Lasix) 20 mg PO DAILY #30 tabs 09/25/23
atorvastatin 20 mg tablet 20 mg PO QPM 30 days #30 tabs 10/05/23
fentanyl 75 mcg/hr transdermal patch 1 patch transdermal Q72H #3 ea 10/05/23
Magic Mouthwash 2 tsp PO Q4H PRN mouth pain 10/22/23
apixaban 2.5 mg tablet (Eliquis) 2.5 mg PO BID 10/22/23
dexamethasone 0.5 mg/5 mL oral solution 1 mg PO TID 10/22/23
potassium chloride 20 mEq tablet,extended release(part/cryst) 20 meq PO DAILY 10/22/23
sucralfate 100 mg/mL oral suspension 10 ml PO TID PRN swallowing difficulty 10/22/23
baclofen 5 mg tablet 5 mg PO TIDPRN PRN muscle spasms 10/23/23
testosterone cypionate 200 mg/mL intramuscular oil 200 mg IM Q2W 10/23/23
Review of Systems
-
A 12 point ROS was completed and negative except as noted: Yes
Physical Exam
Vital Signs
Vital Signs
Temp Pulse Resp BP Pulse Ox
98.1 F 81 14 97/82 92
10/23/23 10:38 10/23/23 16:00 10/23/23 16:00 10/23/23 15:00 10/23/23 16:00
Physical Exam
General: Well Developed, Well Nourished and No Apparent Distress
HEENT: NormoCephalic, Moist mucous membranes and Atraumatic
Respiratory: Clear
Cardiac: S1/S2 and Regular Rhythm; No Murmur or Rub
GI: Soft, Non Tender, Non Distended and Normal Bowel Sounds; No Organomegaly
Rectal: Deferred by Provider
Musculoskeletal: No Clubbing, No Cyanosis and Other (3+ lower extremity edema)
Skin: No Rash
Neuro: Awake, Alert, Oriented, AO x 3 and Nonfocal/grossly intact
Laboratory Results
-
10/23/23 11:38
10/23/23 11:38
Laboratory Results
Lactic Acid Cancelled 10/23/23 15:15
Total Bilirubin 0.6 mg/dl (0.2-1.3) 10/23/23 11:38
AST 36 U/L (17-59) 10/23/23 11:38
ALT 17 U/L (0-50) 10/23/23 11:38
Alkaline Phosphatase 74 U/L (38-126) 10/23/23 11:38
Data Reviewed
-
Diagnostic Radiology: Report Reviewed by me
Lab Data: Labs Reviewed by me
Impression/Plan
-
IMPRESSION:
Presentation with severe fatigue and weakness.
Acute hypoxic respiratory failure with oxygen saturations down to 70% on room air. Patient is not on home O2 prior to presentation.
Hyponatremia
Hypokalemia
Acute kidney injury creatinine 1.4
Pancytopenia secondary to chemotherapy
Conditions prior to admission:
Esophageal carcinoma on chemotherapy.
-Follows with Dr. Mccullough at [facility].
-On chemotherapy with fluorouracil, status post FLOT x 1, on Decadron and testosterone
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
E. coli bacteremia secondary to translocation in patient with esophageal malignancy and neutropenia.
Embolic CVA.
Paroxysmal atrial tachycardia
Anticoagulation with Eliquis
Hepatitis C treated with Vosevi
Malignant pain with narcotic dependence
Chronic lower extremity edema on Lasix.
Hypothyroidism
Severe protein calorie malnutrition with BMI of 19
PLAN:
Presentation with severe fatigue and weakness likely multifactorial in patient with advanced esophageal carcinoma, severe cachexia and malnutrition, also with what looks like worsening and acute hypoxia.
Acute hypoxic respiratory failure
Pulse ox noted to be at 70s on room air on presentation
Improved with Venturi mask at 50%. Will switch to mid flow and monitor closely.
Differential diagnosis thromboembolic event (high risk given esophageal carcinoma as well as i reported missed doses of Eliquis due 2 nausea and emesis). In addition patient is on reduced dose of Eliquis at 2.5 mg twice daily for thrombolic
prophylaxis.
Chest x-ray with borderline interstitial pattern.
In review of most recent echocardiogram 10/10 patient has preserved biventricular function as well as recently normal pro CHF BNP.
Continue oxygen supplementation
Check lower extremity Doppler.
Update CHF BNP.
Repeat echocardiogram.
Start anticoagulation with weight-based Lovenox.
Attempt to wean off oxygen as tolerates.
Continue preadmission dose of dexamethasone
Speech and swallow evaluation with concern for possible aspiration
Acute kidney injury with creatinine 1.4. Baseline 1.0�1.2
Suspect intravascular depletion
Hold Lasix
Gentle hydration with isotonic solution
Hyponatremia mild. Follow response to IV fluids.
Hypokalemia, replete
Follow BMP
Pancytopenia secondary to chemotherapy.
Monitor hemoglobin closely. Consider transfusion if drop below 7. Blood transfusion consent signed by patient in ED.
Neutropenia monitor closely, would be low threshold for empiric antibiotic treatment if febrile.
Thrombocytopenia secondary to above. Monitor closely while on anticoagulation
Chronic malignant pain with opiate dependence.
Continue preadmission opiate regimen including transdermal fentanyl, oxycodone. 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 Adjust accordingly.
History of CVA.
Monitor neurologic status closely.
Continue anticoagulation currently on Lovenox, likely transition back to Eliquis if negative workup for above.
Paroxysmal atrial tachycardia
Patient is not on any antiarrhythmics or AV eve blocking agents prior to presentation
Continue cardiac monitoring
Anticoagulation as above
Hypothyroidism
Continue thyroid supplementation
Dyslipidemia on atorvastatin
[2023-10-23 17:11] LABS: NT-proBNP 5920 pg/ml
--- NOTE | 2023-10-23 20:22 | PTCARENOTE ---
Received pt from ED RN. Pt pulled over from the stretcher to our bed. Pt is AAOx3, garbled speech, swallow screening done pt NPO due to wet/gurgly voice- speech consult placed. Uncooperative @ times, pt being turned for assessment, pt hitting the
side rails, emotional support provided. Sinus tach w/ PVCs on the monitor, LE edema. Received pt on 6L midflow + 40% ventimask, pt now on 8L midflow + 50% ventimask O2 sat 97%, lungs coarse/diminished. NS infusing @ 100ml/hr. CHG bath provided. Pt
is laying in bed with call guan in reach, @ bedside.
[2023-10-23] MEDS: NSS 1000 IV (21:15)
[2023-10-23] MEDS: LOVENOX 60 MG SC (21:15)
[2023-10-23] MEDS: KCL 160 MEQ IV (21:15)
[2023-10-23] MEDS: LIPITOR 20 MG PO (21:16)
[2023-10-23] MEDS: DECADRON 1 MG PO (21:16)
[2023-10-23 21:23] LABS: HCO3 34.9 mmol/L (21-28); O2 Saturation % 94.6 % (94-98); PCO2 48 mmHg (35-48); PO2 68 mmHg (83-108); pH 7.47 (7.35-7.45)
[2023-10-23] MEDS: ROXICODONE 30 MG PO (21:58)
[2023-10-23] MEDS: OXYCONTIN (CONTROLLED RELEASE) 40 MG PO (21:58)
[2023-10-23] MEDS: DURAGESIC 75 MCG/HR PATCH 1 PATCH TRANSDERM (22:04)
[2023-10-24] VITALS (31 sets, daily range): BP systolic 74–138; BP diastolic 52–124; PULSE 136–140; BMI 18.8
[2023-10-24] MEDS: ROXICODONE 30 MG PO ×4 (00:04→12:37)
[2023-10-24 03:43] LABS: % Monocytes 13.3 % (1.7-9.3); % Neutrophils 46.7 % (42.2-75.2); Absolute Lymphocytes 0.1 10^3/uL (1.2-3.4); Hematocrit 23.4 % (39.0-52.0); Hemoglobin 7.9 g/dL (13.0-18.0); Mean Corp Hgb Conc. 33.8 g/dL (33.0-37.0); Mean Corpuscular Hgb 27.8 pg (27.0-31.0); Mean Corpuscular Volume 82.4 fL (80.0-94.0); Mean Platelet Volume 10.4 fL (7.4-10.4); Nucleated Red Blood Cells % 13.3 % (-); Platelet Count 71 10^3/uL (130-400); Red Blood Cell Count 2.84 10^6/uL (4.70-6.10); Red Cell Dist. Width 19.2 % (11.5-14.5)
[2023-10-24 03:49] LABS: Absolute Neutrophils 0.1 10^3/uL (1.4-6.5); White Blood Cell Count 0.2 10^3/uL (4.8-10.8)
[2023-10-24 04:40] LABS: ALT (SGPT) 17 U/L (0-50); AST (SGOT) 43 U/L (17-59); Albumin 2.3 g/dl (3.5-5.0); Alkaline Phosphatase 90 U/L (38-126); Blood Urea Nitrogen 56 mg/dl (9-20); Calcium 7.6 mg/dl (8.4-10.2); Carbon Dioxide 33 mmol/L (22-30); Chloride 99 mmol/L (98-107); Estimated Creatinine Clearance 52 ml/min; Glucose 47 mg/dl (70-99); Potassium 3.3 mmol/L (3.5-5.1); Sodium 136 mmol/L (135-145); Total Bilirubin 0.8 mg/dl (0.2-1.3); Total Protein 5.1 g/dl (6.3-8.2); eGFR > 60.00
[2023-10-24] MEDS: OFIRMEV 100 IV (04:46)
[2023-10-24] MEDS: DEXTROSE 50% SYRINGE 12.5 GRAMS IV (04:53)
[2023-10-24] MEDS: NSS 500 IV (04:58)
[2023-10-24 05:21] LABS: Glucose - Point of Care 71 mg/dl (70-99)
--- NOTE | 2023-10-24 05:25 | PTCARENOTE ---
Pt HR sustaining 140s, BP 92/76. HAIR DRYERHOLLIS Mcknight notified, 500ml NS bolus ordered and Ofirmev ordered (see MAR). Glucose on AM labs 47, AKBAR Mcknight notified, Dextrose ordered and given (see MAR).
[2023-10-24] MEDS: OXYCONTIN (CONTROLLED RELEASE) PO ×3 (06:06→23:55)
[2023-10-24] MEDS: ARMOUR THYROID 60 MG PO (06:09)
[2023-10-24] MEDS: LEVOPHED 250 IV (07:15)
[2023-10-24] MEDS: LOVENOX 60 MG SC (07:33)
[2023-10-24] MEDS: DECADRON 1 MG PO (07:33)
[2023-10-24] MEDS: NSS 1000 IV (09:04)
[2023-10-24] MEDS: KCL 270 MEQ IV (09:08)
--- NOTE | 2023-10-24 09:45 | PHA.VAN.IN ---
Assessment
- Assessment
Renal Function: Appears elevated from baseline (SCR 1.4-->1.3 vs ~0.7)
Concomitant Antimicrobials: cefepime
Plan
- Plan
Initial / Loading Dose: 1500mg - administration pending
Maintenance Regimen: dosing by level
Monitoring: random 10/24 599
MRSA Screen: Ordered per protocol
Pharmacokinetics Vancomycin I
- -
Patient Age: 63
Patient Sex: Male
Vancomycin Day #: 1
Indication: Bacteremia
Requesting Provider: Dr. Magallon
Pertinent Antimicrobial Allergies:
no pertinent antibiotic allergies
Height / Weight:
Height 6 ft
Actual Weight 62.9 kg
IBW in k
Pertinent Past Medical History: BMI ~18.8
- Vital Signs / Lab Results
Temp Pulse Resp BP Pulse Ox
97.9 F 137 21 87/73 92
10/24/23 04:33 10/24/23 08:26 10/24/23 08:26 10/24/23 06:22 10/24/23 08:26
Lab Results - Hematology
10/23/23 10/24/23
11:38 03:34
WBC 0.2 L* 0.2 L*
Lab Results - Chemistry
10/23/23 10/24/23
11:38 03:34
BUN 49 H 56 H
Creatinine 1.4 H 1.3
Estimated Creat Clear 51 52
Albumin 2.5 L 2.3 L
10/23/23 10/23/23
11:38 15:15
Lactic Acid 1.5 Cancelled
Lab Results - Urine
10/23/23
12:54
Urine Nitrite (Reflex) Negative
Leukocyte Esterase Rfl Negative
--- NOTE | 2023-10-24 09:59 | PTOTSP ---
Dysphagia Evaluation
Patient presents with signs concerning for mild oral and severe pharyngeal dysphagia, concern for inability to initiate volitional or reflexive swallows, poor secretion management, weak volitional cough, and weak/wet coughing with sparing amounts of
thin liquids. Risk for aspiration and complications are high.
Recommend:
1. STRICT NPO
2. Consider temporary non-oral means of nutrition/hydration/medications
3. Patient is NOT appropriate for Aspiration Risk Hydration Protocol at this time.
4. Oral care 3x daily with suctioning
5. Dyphagia therapy follow up at the acute care level for re-assessment when appropriate.
[2023-10-24] MEDS: VANCOCIN 300 ML IV (11:02)
[2023-10-24] MEDS: VANCOCIN 300 MG IV (11:02)
[2023-10-24] MEDS: MAXIPIME 2000 MG IV (11:04)
[2023-10-24] MEDS: STERILE WATER FOR INJECTION 10 ML IV (11:05)
[2023-10-24] MEDS: FIRST-MOUTHWASH BLM SUSPENSION 5 ML PO (12:37)
[2023-10-24] MEDS: DILAUDID 2 MG IV ×3 (12:57→20:49)
[2023-10-24] MEDS: ROXICODONE PO ×2 (13:02→23:55)
--- NOTE | 2023-10-24 13:43 | CM ---
Patient with Hx esophageal cancer on chemo with Dx Acute hypoxic respiratory failure, GABBY, Pancytopenia, Neutropenia, Thrombocytopenia. O2 8L midflow. Receiving IV Dilaudid prn. NPO. Comfort care ordered.
Met with patient, , with 2 of the family's ministers present and 2 friends present;
assessment deferred as was crying and obviously grieving. Patient appeared sleeping/not awake.
From prior CM notes from admission 09-27 to 10-05-23; Patient reported he lives with his in a ranch style home, and he was independent and ambulating at that time. Patient was discharged home with [facility].
Plan comfort care.
[2023-10-24 13:47] LABS: Cortisol, Random > 123.0 ug/dl
--- NOTE | 2023-10-24 16:17 | W.PN.HOSP.TC ---
Today's Communication/Plan
-
Transition to comfort care.
Assessment / Plan
Assessment / Plan
IMPRESSION:
Presentation with severe fatigue and weakness.
Acute hypoxic respiratory failure with oxygen saturations down to 70% on room air. Patient is not on home O2 prior to presentation.
Aspiration syndrome with severe aspiration pneumonia
Sepsis
Hyponatremia
Hypokalemia
Acute kidney injury creatinine 1.4
Pancytopenia secondary to chemotherapy
Conditions prior to admission:
Esophageal carcinoma on chemotherapy.
-Follows with Dr. Mccullough at [facility].
-On chemotherapy with fluorouracil, status post FLOT x 1, on Decadron and testosterone
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
E. coli bacteremia secondary to translocation in patient with esophageal malignancy and neutropenia.
Embolic CVA.
Paroxysmal atrial tachycardia
Anticoagulation with Eliquis
Hepatitis C treated with Vosevi
Malignant pain with narcotic dependence
Chronic lower extremity edema on Lasix.
Hypothyroidism
Severe protein calorie malnutrition with BMI of 19
PLAN:
Patient with rapidly deteriorating clinical status including severe hypoxemia requiring oxygen supplementation at mid flow 50% while remains in respiratory distress and been increasingly lethargic, hypotension with evolving shock likely
multifactorial due to evolving sepsis as well as hypovolemia.
Severe aspiration syndrome reviewed and confirmed by speech and swallow evaluation.
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
Difficult situation in patient with advanced esophageal carcinoma currently on chemotherapy now with acute and progressive illness with rapidly deteriorating clinical state not responding to antibiotics, vasopressors, fluids, corticosteroids.
Extremely poor performance status not limited to extreme cachexia with BMI of 18.
According to patient wishes not to pursue any aggressive or heroic measures of life support CODE STATUS was changed to DNR and later with rapid deterioration of clinical course family requested transition to comfort care
Given patient severe and chronic pain requiring higher dose of opiates plan is to transition to IV hydromorphone drip with titration. IV lorazepam for anxiety and agitation will be provided as well.
Secretion management.
Anticipated Discharge: 24 - 48 hours
Subjective/Interval History
-
Date of Service: October 24, 2023
Objective Data
-
Labs:
Laboratory Results
10/24/23
03:34
Sodium 136
Potassium 3.3 L
Chloride 99
Carbon Dioxide 33 H
BUN 56 H
Creatinine 1.3
Glucose 47 L*
Calcium 7.6 L
Total Bilirubin 0.8
AST 43
ALT 17
Alkaline Phosphatase 90
Vital Signs:
Vital Signs
Temp Pulse Resp BP Pulse Ox
97.9 F 137 21 87/73 92
10/24/23 04:33 10/24/23 08:26 10/24/23 08:26 10/24/23 06:22 10/24/23 08:26
I&O
10/23/23 10/24/23 10/25/23
06:59 06:59 06:59
Intake Total 1410 / 1410
Balance 1410 / 1410
Physical Exam
-
General: Well Developed and No Apparent Distress
HEENT: Normocephalic, Atraumatic and Moist Mucous Membranes
Respiratory: Clear to Auscultation
Cardiac: Regular Rhythm and S1/S2; Negative Murmur, Rub or Gallop
GI: Soft, Nontender, Nondistended and Normal Bowel Sounds; Negative Organomegaly
Rectal: Deferred by Provider
Musculoskeletal: No Clubbing, No Cyanosis and No Edema
Skin: Negative Rash
Neuro: Nonfocal/Grossly Intact
[2023-10-24] MEDS: LEVSIN ORAL DROPS 0.125 MG SL (20:50)
[2023-10-24] MEDS: ATIVAN 2 MG IV (21:40)
[2023-10-24] MEDS: STERILE WATER FOR INJECTION IV (23:55)
[2023-10-25] MEDS: ROXICODONE PO (00:43)
--- NOTE | 2023-10-25 01:24 | PTCARENOTE ---
Pt received from previous shift w/spouse & family at bedside. Goals of comfort care discussed, verbalize understanding. Full physical assessment documented (refer to worklist). PRN meds for pain & agitation administered via LSubQ ports (brisk
blood return observed), pt able to take SL levsin - refer to MAR for administration. Pt appears more comfortable at present. Emotional support provided, spouse remains at bedside. Plan of care ongoing.
--- NOTE | 2023-10-25 07:00 | PTCARENOTE ---
received report from previous RN. pt resting comfortably, at bedside. resp rate 8-12 no respiratory distress noted. updated on plan of care.
[2023-10-25] MEDS: DILAUDID 2 MG IV (07:54)
[2023-10-25 08:03] VITALS: BP 53/34
--- NOTE | 2023-10-25 09:36 | PTCARENOTE ---
pt asystole on monitor, no breath sounds. Dr Alvarenga notified, came to bedside to pronounce . at bedside, comfort provided
--- NOTE | 2023-10-25 10:18 | W.PN.DEATH ---
Pronouncement of
-
Called to see patient to pronounce.
No spontaneous heart tones or respirations noted.
Patient not responsive to verbal stimuli.
Patient is pronounced .
Time of : 09:36
Date of : 10/25/23
Cause of : Acute hypoxic respiratory failure. Aspiration pneumonia. Esophageal CA.
Family Notified: Yes
== END 2023-10-25 09:36 | disposition expired | DRG 871 ==
LOC: IMU 17:07
PROVIDERS: ADMITTING PHYSICIAN Internal Medicine; EMERGENCY PHYSICIAN Emergency Medicine; FAMILY PHYSICIAN Physician Assistant Medical
DX: A41.51 Sepsis due to Escherichia coli [E. coli] (principal); D61.810 Antineoplastic chemotherapy induced pancytopenia; J96.01 Acute respiratory failure with hypoxia; E43 Unspecified severe protein-calorie malnutrition; J69.0 Pneumonitis due to inhalation of food and vomit; C15.9 Malignant neoplasm of esophagus, unspecified; N17.9 Acute kidney failure, unspecified; I47.19 Other supraventricular tachycardia; E87.1 Hypo-osmolality and hyponatremia; Z68.1 Body mass index [BMI] 19.9 or less, adult; F11.20 Opioid dependence, uncomplicated; R64 Cachexia; R57.9 Shock, unspecified; Z51.5 Encounter for palliative care; E03.9 Hypothyroidism, unspecified; D69.59 Other secondary thrombocytopenia; E87.6 Hypokalemia; T45.1X5A Adverse effect of antineoplastic and immunosuppressive drugs, initial encounter; G47.30 Sleep apnea, unspecified; E83.118 Other hemochromatosis; N18.9 Chronic kidney disease, unspecified; G89.3 Neoplasm related pain (acute) (chronic); E86.0 Dehydration; Z79.01 Long term (current) use of anticoagulants; Z86.73 Personal history of transient ischemic attack (TIA), and cerebral infarction without residual deficits; Z92.21 Personal history of antineoplastic chemotherapy; Z91.013 Allergy to seafood; Z99.81 Dependence on supplemental oxygen
CPT/HCPCS: 36600; 71045; 80053; 81003; 82533; 82805; 82962; 83605; 83735; 83880; 85025; 87040; 87149; 87186; 87205; 87641; 92610; 93970; 94640; 96374; 99285